=== PATIENT | female | born 1945 | race Two or more races ===

== ENCOUNTER → 2016-09-01 | Outpatient (CLI) | payer BC ==
[~2016-09-01] MED LIST: ALEVE220 M2 PO; AMLODIPINE BESY10 MG ORAL; CALCIUM600 M1 PO; CEPHALEXIN500 MG ORAL; CIPRO250 MG ORAL; CLONIDINE 0.2M0.2 MG PO; HYDROCHLOROTHIA25 MG PO; LEVEMIR100 UNITS/ SQ; MULTIVITAMINS1 EAC2 ORAL; TENORMIN50 MG PO; TRAMADOL HCL50 MG ORAL; ZESTRIL10 MG PO; ZOFRAN 4 MG4 MG/2 ML IV
--- NOTE | 2016-09-02 15:36 | Cardiology Report ---
APPROVED REPORT EKG Measurement Heart [id number] Normal sinus rhythm Possible Left atrial enlargement Borderline ECG
== END | disposition home or self-care (01) ==
LOC: RAD 09:28
DX: Z01.818 Encounter for other preprocedural examination (principal)
CPT/HCPCS: 93005

== ENCOUNTER 2017-09-24 12:06 | Emergency (ER) | payer BC ==
[~2017-09-24] VITALS: Ht 167.6 cm; Wt 77.1 kg
[2017-09-24 12:30] VITALS: BP 253/79
[2017-09-24] MEDS ORDERED: Morphine Sulfate 4mg/ml Inj IVP ONE (12:45)
[2017-09-24 13:17] LABS: BASOPHILS % (AUTO) 0.6 % (0.0-2.0); EOSINOPHILS % (AUTO) 1.7 % (0.0-3.0); HEMATOCRIT 41.6 % (37.0-47.0); HEMOGLOBIN 14.3 G/DL (12.0-16.0); LYMPHOCYTES % (AUTO) 20.2 % (20.0-45.0); MEAN CORPUSCULAR VOLUME 90 FL (80-99); MONOCYTES % (AUTO) 4.8 % (1.0-10.0); NEUTROPHILS % (AUTO) 72.7 % (45.0-75.0); PLATELET COUNT 206 K/UL (150-450); RED BLOOD COUNT 4.64 M/UL (4.20-5.40); RED CELL DISTRIBUTION WIDTH 11.6 % (11.6-14.8); WHITE BLOOD COUNT 6.7 K/UL (4.8-10.8)
--- NOTE | 2017-09-24 13:41 | Diagnostic Imaging Report ---
Indication: Headache Technique: Continuous helical CT scanning of the head was performed utilizing automated exposure control without intravenous contrast material. Axial and coronal reconstructions were obtained. Comparison: 03/24/2011 CT dose: Total DLP 1368.51 mGycm; CTDI vol 70.38 mGy Findings: There is no acute intracranial hemorrhage, mass effect or cortical edema. The ventricles, cisterns and sulci are within normal limits for age. There is mild periventricular hypoattenuation. Atherosclerotic vascular calcifications noted. Visualized mastoid air cells and paranasal sinuses are unremarkable. No focal lesions of the bony calvarium or soft tissues of the scalp are seen. IMPRESSION: No evidence of acute intracranial hemorrhage, mass effect or cortical edema. MRI may be obtained for more sensitive evaluation as clinically indicated. Nonspecific periventricular hypoattenuation suggestive of chronic ischemic microvascular changes. The CT scanner at [facility] is accredited by the [employer] and the scans are performed using protocols designed to limit radiation exposure to as low as reasonably achievable to attain images of sufficient resolution adequate for diagnostic evaluation.
[2017-09-24 13:58] LABS: ALANINE AMINOTRANSFERASE 20 U/L (12-78); ALBUMIN 3.8 G/DL (3.4-5.0); ALKALINE PHOSPHATASE 89 U/L (46-116); ANION GAP 10 mmol/L (5-15); ASPARTATE AMINO TRANSFERASE 18 U/L (15-37); BILIRUBIN,TOTAL 0.9 MG/DL (0.2-1.0); BLOOD UREA NITROGEN 23 mg/dL (7-18); CALCIUM 9.5 MG/DL (8.5-10.1); CARBON DIOXIDE 25 MMOL/L (21-32); CHLORIDE 104 MMOL/L (98-107); CKMB 0.8 NG/ML (0.0-3.6); CREATINE KINASE 43 U/L (26-308); CREATININE 0.8 MG/DL (0.55-1.30); POTASSIUM 3.7 MMOL/L (3.5-5.1); SODIUM 139 MMOL/L (136-145)
[2017-09-24] MEDS ORDERED: cloNIDine 0.2mg Tab ONE (14:24)
[2017-09-24 14:30] VITALS: BP 211/62
[2017-09-24] MEDS ORDERED: cloNIDine 0.2mg Tab ORAL ONE (14:30)
[2017-09-24] MEDS ORDERED: NORCO 5-325 TA1 EACH ORAL (15:13)
--- NOTE | 2017-09-24 15:20 | Emergency Room Report ---
History of Present Illness General Chief Complaint: Hypertension Source: Patient Present Illness HPI Patient presents emergency department today complaining of a headache. Patient states the headache is associated nausea and sensation of pressure around her head. She also had one episode of diarrhea. She denies any fever chest pain shortness of breath. Denies any abdominal pain. Symptoms noted moderate. She states that she has a history hypertension and took her medications last night. 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 No other complaints are noted.. Patient denies any prior history of CVA. Patient does occasionally get migraine headaches and hypertensive headaches.No other modifying factors. No other associated signs and symptoms. No other complaints were noted. Allergies: Coded Allergies: PENICILLINS (Verified Allergy, Severe, SWELLING, 03/24/11) CODEINE (Verified Allergy, Unknown, GI UPSET,HEADACHE, 03/24/11) Patient History Past Medical History: DM, HTN PSxH Narrative right nephrectomy Reviewed Nursing Documentation: PMH: Agreed; PSxH: Agreed Nursing Documentation-PMH Past Medical History: No History, Except For Hx Cardiac Problems: Yes Hx Hypertension: Yes Hx Diabetes: Yes Hx Cancer: Yes - Rt. Kidney Hx Gastrointestinal Problems: No Hx Neurological Problems: No Review of Systems All Other Systems: negative except mentioned in HPI Physical Exam Vital Signs Date Time Temp Pulse Resp B/P (MAP) Pulse Ox O2 Delivery O2 Flow Rate FiO2 09/24/17 12:15 98.1 70 18 208/101 96 98.1 09/24/17 12:30 Room Air Sp02 EP Interpretation: reviewed, normal General Appearance: alert, mild distress Head: atraumatic Eyes: bilateral eye normal inspection ENT: normal ENT inspection, hearing grossly normal, normal voice Neck: normal inspection, full range of motion, supple, no bony tend Respiratory: normal inspection, lungs clear, normal breath sounds, no respiratory distress, no retraction, no wheezing Cardiovascular #1: regular rate, rhythm, no edema Gastrointestinal: normal inspection, normal bowel sounds, non tender, soft, no guarding, no hernia Genitourinary: no CVA tenderness Musculoskeletal: normal inspection, back normal, normal range of motion Neurologic: normal inspection, alert, responsive, speech normal Psychiatric: normal inspection, judgement/insight normal, mood/affect normal Skin: normal inspection, normal color, no rash Medical Decision Making Diagnostic Impression: Primary Impression: Hypertension Additional Impressions: Accelerated hypertension Headache ER Course Patient presents emergency department today with generalized weakness and hypertension. Patient also complaining headache and episode of vomiting. Differential considerations include acute intracranial injury, electrolyte abnormality, migraine headache, high to intensive urgency, hypertensive emergency just to name a few.Given the severity of the patient's presentation I felt this is a highly complex patient. This patient required extensive workup. Patient's head CT was negative. Laboratory workup was also negative. Patient was given pain medications and fluids and felt much better. Patient was given nausea medication. Patient was also given clonidine with improvement blood pressure. Patient is advised to take her blood pressure pills tonight. Recommend close follow primary care physician.Patient is advised to follow up with primary doctor in 2-3 days and return the emergency room for any worsening symptoms and as needed. Labs Test 09/24/17 12:55 White Blood Count 6.7 K/UL (4.8-10.8) Red Blood Count 4.64 M/UL (4.20-5.40) Hemoglobin 14.3 G/DL (12.0-16.0) Hematocrit 41.6 % (37.0-47.0) Mean Corpuscular Volume 90 FL (80-99) Mean Corpuscular Hemoglobin 30.9 PG (27.0-31.0) Mean Corpuscular Hemoglobin Concent 34.5 G/DL (32.0-36.0) Red Cell Distribution Width 11.6 % (11.6-14.8) Platelet Count 206 K/UL (150-450) Mean Platelet Volume 7.6 FL (6.5-10.1) Neutrophils (%) (Auto) 72.7 % (45.0-75.0) Lymphocytes (%) (Auto) 20.2 % (20.0-45.0) Monocytes (%) (Auto) 4.8 % (1.0-10.0) Eosinophils (%) (Auto) 1.7 % (0.0-3.0) Basophils (%) (Auto) 0.6 % (0.0-2.0) Sodium Level 139 MMOL/L (136-145) Potassium Level 3.7 MMOL/L (3.5-5.1) Chloride Level 104 MMOL/L (98-107) Carbon Dioxide Level 25 MMOL/L (21-32) Anion Gap 10 mmol/L (5-15) Blood Urea Nitrogen 23 mg/dL (7-18) Creatinine 0.8 MG/DL (0.55-1.30) Estimat Glomerular Filtration Rate mL/min (>60) Glucose Level 167 MG/DL (74-106) Calcium Level 9.5 MG/DL (8.5-10.1) Total Bilirubin 0.9 MG/DL (0.2-1.0) Aspartate Amino Transf (AST/SGOT) 18 U/L (15-37) Alanine Aminotransferase (ALT/SGPT) 20 U/L (12-78) Alkaline Phosphatase 89 U/L (46-116) Total Creatine Kinase 43 U/L (26-308) Creatine Kinase MB 0.8 NG/ML (0.0-3.6) Creatine Kinase MB Relative Index 1.8 Troponin I 0.000 ng/mL (0.000-0.056) Total Protein 7.6 G/DL (6.4-8.2) Albumin 3.8 G/DL (3.4-5.0) Globulin 3.8 g/dL Albumin/Globulin Ratio 1.0 (1.0-2.7) Lipase 74 U/L (73-393) EKG Diagnostic Results Rate: normal Rhythm: NSR ST Segments: no acute changes Rhythm Strip Diag. Results EP Interpretation: yes Rate: 60s Rhythm: NSR, no PVC's, no ectopy Chest X-Ray Diagnostic Results Chest X-Ray Diagnostic Results : Chest X-Ray Ordered: Yes # of Views/Limited/Complete: 1 View Indication: Shortness of Breath EP Interpretation: Yes Interpretation: no consolidation, no effusion, no pneumothorax, no acute cardiopulmonary disease Impression: No acute disease Electronically Signed by: Electronically signed by Rachael Elias MD Last Vital Signs Date Time Temp Pulse Resp B/P (MAP) Pulse Ox O2 Delivery O2 Flow Rate FiO2 09/24/17 14:30 82 18 211/62 98 09/24/17 13:01 98.1 09/24/17 12:30 Room Air Status: improved Disposition: HOME, SELF-CARE Condition: Stable Scripts Hydrocodone Bit/Acetaminophen 5-325* (NORCO 5-325*) 1 Each Tablet 1 TAB ORAL Q6H PRN for For Pain, #10 TAB 0 Refills Prov: RACHAEL ELIAS M.D. 09/24/17 Referrals: EDWARDO SUAZO (PCP) Patient Instructions: Hypertension, [id number] RACHAEL ELIAS M.D. September 24, 2017 15:20
[2017-09-24 15:50] VITALS: BP 211/62
--- NOTE | 2017-09-24 17:06 | Diagnostic Imaging Report ---
Indication: Cough Technique: XRAY Chest 1v Comparison: None Findings: Heart size and mediastinal contours are stable compared to the prior exam. Atherosclerotic calcifications again noted in the aortic arch. No focal airspace consolidation, pleural effusion or pneumothorax. No acute osseous abnormality seen. Impression: No radiographic evidence of acute cardiopulmonary disease.
--- NOTE | 2017-09-26 11:57 | Cardiology Report ---
APPROVED REPORT EKG Measurement Heart [id number] Normal sinus rhythm Possible Left atrial enlargement Possible Anterior infarct, age undetermined Abnormal ECG
== END 2017-09-24 15:50 | disposition home or self-care (01) ==
LOC: EEVIPCON 12:06 → EMR 12:44
DX: I10 Essential (primary) hypertension (principal); R51 Headache; E11.9 Type 2 diabetes mellitus without complications; Z88.0 Allergy status to penicillin; Z88.5 Allergy status to narcotic agent; Z85.528 Personal history of other malignant neoplasm of kidney
CPT/HCPCS: 36415; 70450; 71045; 80053; 82550; 82553; 83690; 84484; 85025; 93005; 96374; 96375; 99283; J2270; J2405

== ENCOUNTER 2018-04-26 07:48 | Inpatient (IN) | payer BC, MEDICARE ==
[~2018-04-26] VITALS: Ht 160 cm; Wt 80.1 kg
[2018-04-26] VITALS (9 sets, daily range): BP systolic 159–235; BP diastolic 58–146
[~2018-04-26 07:48] MED LIST changes: +NORCO 5-325 TA1 EACH ORAL
[2018-04-26] MEDS ORDERED: cloNIDine 0.2mg Tab ORAL ONE (08:15)
--- NOTE | 2018-04-26 08:16 | Emergency Room Report ---
History of Present Illness General Chief Complaint: Stroke Symptoms Source: Patient Present Illness HPI Patient is a 72-year-old female who presented after increased difficulty with speech. Patient had prior history of hypertension. She reports having taken her blood pressure medications this morning. She denies any fever. She denies any extremity weakness. She reported having some increased left-sided facial the discomfort. Patient is followed by Dr. Hamlet Rajput. Allergies: Coded Allergies: PENICILLINS (Verified Allergy, Severe, SWELLING, 03/24/11) CODEINE (Verified Allergy, Unknown, GI UPSET,HEADACHE, 03/24/11) Patient History Past Medical History: see triage record Now: No Reviewed Nursing Documentation: PMH: Agreed; PSxH: Agreed Nursing Documentation-PMH Past Medical History: No History, Except For Hx Cardiac Problems: Yes Hx Hypertension: Yes Hx Diabetes: Yes Hx Cancer: Yes - Rt. Kidney Hx Gastrointestinal Problems: No Hx Neurological Problems: No Review of Systems All Other Systems: negative except mentioned in HPI Physical Exam Vital Signs Date Time Temp Pulse Resp B/P (MAP) Pulse Ox O2 Delivery O2 Flow Rate FiO2 04/26/18 07:58 98.1 144 20 237/98 97 Room Air Sp02 EP Interpretation: reviewed, normal General Appearance: normal inspection, well appearing, no apparent distress, alert, GCS 15, non-toxic Head: atraumatic ENT: normal ENT inspection, hearing grossly normal, normal voice Neck: normal inspection, full range of motion, supple, no bony tend Respiratory: normal inspection, lungs clear, normal breath sounds, no respiratory distress, no retraction, no wheezing Cardiovascular #1: regular rate, rhythm, no edema Gastrointestinal: normal inspection, normal bowel sounds, non tender, soft, no guarding, no hernia Genitourinary: no CVA tenderness Musculoskeletal: normal inspection, back normal, normal range of motion Neurologic: normal inspection, alert, oriented x3, responsive, hold worker III-XII nml as tested, speech normal Psychiatric: normal inspection, judgement/insight normal, mood/affect normal Skin: normal inspection, normal color, no rash Medical Decision Making Diagnostic Impression: Primary Impression: Transient ischemic attack ER Course Patient presented for increased dysarthria. Differential diagnosis included was not limited to CVA, transient ischemic attack, hypertensive crisis, allergic reaction and among others.Because of complexity of patient's case laboratory testing and imaging studies were ordered. The CT the head read by radiology showed no evidence of acute CVA. The patient was given medications to help control hypertension. Patient stated she felt better. The patient subsequently was noted to have increased difficulty with speaking again. The patient was given Solu-Medrol as well as Benadryl for what appears to be some tongue swelling. The patient was admitted for further evaluation of uncontrolled hypertension and the dysarthria. Dr. Dumont was contacted for inpatient management due to capitated physician. Labs Test 04/26/18 09:16 04/27/18 08:05 04/27/18 17:10 Sodium Level 140 MMOL/L (136-145) Potassium Level 3.8 MMOL/L (3.5-5.1) Chloride Level 106 MMOL/L (98-107) Carbon Dioxide Level 26 MMOL/L (21-32) Anion Gap 8 mmol/L (5-15) Blood Urea Nitrogen 23 mg/dL (7-18) Creatinine 1.0 MG/DL (0.55-1.30) Estimat Glomerular Filtration Rate mL/min (>60) Glucose Level 107 MG/DL (74-106) Calcium Level 9.0 MG/DL (8.5-10.1) Total Bilirubin 0.8 MG/DL (0.2-1.0) Aspartate Amino Transf (AST/SGOT) 16 U/L (15-37) Alanine Aminotransferase (ALT/SGPT) 72 U/L (12-78) Alkaline Phosphatase 133 U/L (46-116) Total Protein 7.4 G/DL (6.4-8.2) Albumin 3.4 G/DL (3.4-5.0) Globulin 4.0 g/dL Albumin/Globulin Ratio 0.9 (1.0-2.7) White Blood Count 9.6 K/UL (4.8-10.8) Red Blood Count 4.94 M/UL (4.20-5.40) Hemoglobin 14.5 G/DL (12.0-16.0) Hematocrit 42.9 % (37.0-47.0) Mean Corpuscular Volume 87 FL (80-99) Mean Corpuscular Hemoglobin 29.3 PG (27.0-31.0) Mean Corpuscular Hemoglobin Concent 33.7 G/DL (32.0-36.0) Red Cell Distribution Width 11.5 % (11.6-14.8) Platelet Count 257 K/UL (150-450) Mean Platelet Volume 6.7 FL (6.5-10.1) Neutrophils (%) (Auto) % (45.0-75.0) Lymphocytes (%) (Auto) % (20.0-45.0) Monocytes (%) (Auto) % (1.0-10.0) Eosinophils (%) (Auto) % (0.0-3.0) Basophils (%) (Auto) % (0.0-2.0) Differential Total Cells Counted 100 Neutrophils % (Manual) 81 % (45-75) Lymphocytes % (Manual) 18 % (20-45) Monocytes % (Manual) 1 % (1-10) Eosinophils % (Manual) 0 % (0-3) Basophils % (Manual) 0 % (0-2) Band Neutrophils 0 % (0-8) Platelet Estimate Adequate Platelet Morphology Normal Red Blood Cell Morphology Normal Prothrombin Time 10.7 SEC (9.30-11.50) Prothromb Time International Ratio 1.0 (0.9-1.1) Activated Partial Thromboplast Time 28 SEC (23-33) C-Reactive Protein, Quantitative 1.5 mg/dL (0.00-0.90) Triglycerides Level 83 MG/DL (30-150) Cholesterol Level 230 MG/DL (< 200) LDL Cholesterol 152 mg/dL (<100) HDL Cholesterol 77 MG/DL (40-60) Cholesterol/HDL Ratio 3.0 (3.3-4.4) Thyroid Stimulating Hormone (TSH) 0.325 uiU/mL (0.358-3.740) Troponin I 0.008 ng/mL (0.000-0.056) Last Vital Signs Date Time Temp Pulse Resp B/P (MAP) Pulse Ox O2 Delivery O2 Flow Rate FiO2 04/26/18 08:11 237/98 04/26/18 07:58 98.1 144 20 97 Room Air Status: improved Disposition: PLACE IN OBSERVATION Condition: Stable Scripts Hydralazine HCl (Hydralazine HCl) 50 Mg Tablet 50 MG ORAL Q8HR for 30 Days, TAB Prov: Page Dumont MD 04/28/18 Atorvastatin (Lipitor) 80 Mg Tablet 80 MG ORAL BEDTIME for 30 Days, TAB Prov: Page Dumont MD 04/28/18 Referrals: David Rajput MD (PCP) Allan Couch MD Apr 26, 2018 08:16
[2018-04-26] MEDS ORDERED: Aspirin Baby 81mg ORAL ONE (08:30)
--- NOTE | 2018-04-26 08:37 | Diagnostic Imaging Report ---
Indication: Altered mental status, increased difficulty with speech Technique: Continuous helical CT scanning of the head was performed without intravenous contrast material. Axial and coronal 5 mm sections were generated. Radiation dose was minimized using automated exposure control Dose: Total Dose Length Product - DLP 1383.[address] Dose Index - CTDIvol(s) 70.38 mGy. Comparison: none Findings: The ventricular system is normal in size and configuration. There is no shift of midline structures. No abnormal extra-axial fluid collections are noted. There is no evidence of intracerebral bleeding. Normal-sized ventricles and extra axial CSF spaces Small focus of low-attenuation in the left inferior frontal deep white matter is consistent with chronic deep white matter ischemic changes or old white matter lacunar infarct. Otherwise normal hunt-white differentiation. The calvarium is intact. Visualized orbits and sinuses are unremarkable. Impression: Negative for acute intrarenal bleed or mass effect Left frontal deep white matter chronic deep white matter small vessel ischemic change or old lacunar infarct . Stat code stroke findings discussed with Dr. Couch in the emergency room at approximately 0825 on 04/26/[address] scanner at [facility] is accredited by the [employer] and the scans are performed using protocols designed to limit radiation exposure to as low as reasonably achievable to attain images of sufficient resolution adequate for diagnostic evaluation.
[2018-04-26 09:27] LABS: BASOPHILS % (AUTO) 0.6 % (0.0-2.0); EOSINOPHILS % (AUTO) 3.3 % (0.0-3.0); HEMATOCRIT 40.5 % (37.0-47.0); HEMOGLOBIN 13.8 G/DL (12.0-16.0); LYMPHOCYTES % (AUTO) 33.9 % (20.0-45.0); MEAN CORPUSCULAR VOLUME 87 FL (80-99); NEUTROPHILS % (AUTO) 56.2 % (45.0-75.0); PLATELET COUNT 252 K/UL (150-450); RED BLOOD COUNT 4.65 M/UL (4.20-5.40); RED CELL DISTRIBUTION WIDTH 11.7 % (11.6-14.8); WHITE BLOOD COUNT 4.9 K/UL (4.8-10.8)
[2018-04-26 09:55] LABS: ANION GAP 8 mmol/L (5-15); BLOOD UREA NITROGEN 23 mg/dL (7-18); CARBON DIOXIDE 26 MMOL/L (21-32); CHLORIDE 106 MMOL/L (98-107); POTASSIUM 3.8 MMOL/L (3.5-5.1); SODIUM 140 MMOL/L (136-145)
[2018-04-26 10:00] LABS: ALANINE AMINOTRANSFERASE 72 U/L (12-78); ALBUMIN 3.4 G/DL (3.4-5.0); ALBUMIN/GLOBULIN RATIO 0.9 (1.0-2.7); ALKALINE PHOSPHATASE 133 U/L (46-116); ASPARTATE AMINO TRANSFERASE 16 U/L (15-37); BILIRUBIN,TOTAL 0.8 MG/DL (0.2-1.0); CHOLESTEROL 191 MG/DL (< 200); HDL CHOLESTEROL 61 MG/DL (40-60); TRIGLYCERIDES 88 MG/DL (30-150)
[2018-04-26] MEDS ORDERED: Solu-MEDROL 125mg Inj IVP ONE (11:00)
[2018-04-26] MEDS ORDERED: DiphenhydrAMINE 50mg/ml Inj IVP ONE (11:00)
[2018-04-26] MEDS ORDERED: dilTIAZem HCl 25mg/5ml Inj IV PRN (17:15)
[2018-04-26] MEDS ORDERED: Albuterol/Ipratropium 3ml neb HHN PRN (17:15)
[2018-04-26] MEDS ORDERED: Nitroglycerin Subl 0.4mg tab SL PRN (17:15)
[2018-04-26] MEDS ORDERED: Miralax 17gm pkt ORAL PRN (17:15)
[2018-04-26] MEDS: cloNIDine 0.2mg Tab ORAL SCH (18:34)
--- NOTE | 2018-04-26 20:26 | Cardiology Progress Note ---
Assessment/Plan Assessment/Plan [id number] increase acei echo carotid duplex statin not sure about the "toungue swelling " will follow may benefit form sleep study Objective Last 24 Hour Vital Signs Date Time Temp Pulse Resp B/P (MAP) Pulse Ox O2 Delivery O2 Flow Rate FiO2 18 18:34 162/76 18 18:34 67 162/76 18 16:25 Room Air 04/26/18 16:00 96.8 67 22 162/76 (104) 96 04/26/18 15:10 58 17 162/58 99 Room Air 04/26/18 13:00 51 16 190/60 99 Room Air 04/26/18 12:00 49 18 161/63 98 Room Air 04/26/18 10:45 97.8 54 14 163/66 98 Room Air 04/26/18 10:45 97.8 54 14 163/66 98 Room Air 04/26/18 09:00 98.6 60 18 159/146 99 Room Air 04/26/18 08:11 237/98 04/26/18 08:05 98.3 142 20 235/98 98 Room Air 04/26/18 07:58 98.1 144 20 237/98 97 Room Air Laboratory Tests Test 04/26/18 09:16 04/26/18 18:00 White Blood Count 4.9 K/UL (4.8-10.8) Red Blood Count 4.65 M/UL (4.20-5.40) Hemoglobin 13.8 G/DL (12.0-16.0) Hematocrit 40.5 % (37.0-47.0) Mean Corpuscular Volume 87 FL (80-99) Mean Corpuscular Hemoglobin 29.6 PG (27.0-31.0) Mean Corpuscular Hemoglobin Concent 34.0 G/DL (32.0-36.0) Red Cell Distribution Width 11.7 % (11.6-14.8) Platelet Count 252 K/UL (150-450) Mean Platelet Volume 6.5 FL (6.5-10.1) Neutrophils (%) (Auto) 56.2 % (45.0-75.0) Lymphocytes (%) (Auto) 33.9 % (20.0-45.0) Monocytes (%) (Auto) 6.0 % (1.0-10.0) Eosinophils (%) (Auto) 3.3 % (0.0-3.0) H Basophils (%) (Auto) 0.6 % (0.0-2.0) Prothrombin Time 10.4 SEC (9.30-11.50) Prothromb Time International Ratio 1.0 (0.9-1.1) Activated Partial Thromboplast Time 29 SEC (23-33) Sodium Level 140 MMOL/L (136-145) Potassium Level 3.8 MMOL/L (3.5-5.1) Chloride Level 106 MMOL/L (98-107) Carbon Dioxide Level 26 MMOL/L (21-32) Anion Gap 8 mmol/L (5-15) Blood Urea Nitrogen 23 mg/dL (7-18) H Creatinine 1.0 MG/DL (0.55-1.30) Estimat Glomerular Filtration Rate mL/min (>60) Glucose Level 107 MG/DL (74-106) H Calcium Level 9.0 MG/DL (8.5-10.1) Total Bilirubin 0.8 MG/DL (0.2-1.0) Aspartate Amino Transf (AST/SGOT) 16 U/L (15-37) Alanine Aminotransferase (ALT/SGPT) 72 U/L (12-78) Alkaline Phosphatase 133 U/L (46-116) H Total Protein 7.4 G/DL (6.4-8.2) Albumin 3.4 G/DL (3.4-5.0) Globulin 4.0 g/dL Albumin/Globulin Ratio 0.9 (1.0-2.7) L Triglycerides Level 88 MG/DL (30-150) Cholesterol Level 191 MG/DL (< 200) LDL Cholesterol 122 mg/dL (<100) H HDL Cholesterol 61 MG/DL (40-60) H Cholesterol/HDL Ratio 3.1 (3.3-4.4) L Troponin I 0.000 ng/mL (0.000-0.056) Stevo Funes MD Apr 26, 2018 20:26
[2018-04-26] MEDS: NovoLOG Insulin Flexpen SUBQ SCH (20:50)
[2018-04-26] MEDS: Heparin 5000 units/ml inj SUBQ SCH (20:50)
[2018-04-26] MEDS: Enalaprilat 2.5mg/2ml Inj IV PRN (20:52)
[2018-04-26] MEDS: Atorvastatin 80mg tab ORAL SCH (20:55)
[2018-04-27] VITALS (8 sets, daily range): BP systolic 158–187; BP diastolic 64–90
--- NOTE | 2018-04-27 03:15 | Consultation ---
DATE OF CONSULTATION: 04/26/2018 CARDIAC CONSULTATION CONSULTING PHYSICIAN: Stevo Funes M.D. REFERRING PHYSICIAN: Page Dumont M.D. REASON FOR REFERRAL: Transient ischemic attack with history of hypertension. HISTORY OF PRESENT ILLNESS: This is a middle-aged female, who has a history of high blood pressure and diabetes, presented to the hospital because of speech issues while she was at work today. Slurring of speech was noted. She was brought to the emergency room. Currently symptoms resolved and she was discharged from the hospital, although she did get some aspirin. When she did try to get out of the hospital, she started having some swelling of her tongue and she was admitted at that time. She is feeling much better at the present time, although has slurred speech and tongue swelling that resolved. She does not have any chest pain. No PND. No orthopnea. She uses 2 pillows for neck and GI issues, not because of orthopnea. There is no palpitation. No dizziness or lightheadedness on standing. Her blood pressure has been elevated previously. She is still taking some medication on a p.r.n. basis. Her blood pressure improved and she stopped taking the medication until recently when her blood pressure went up back again. PAST MEDICAL HISTORY: Positive for diabetes and high blood pressure. No history of heart attack. She does have a history of renal cell carcinoma that was resected. No history of stroke. No hepatitis or tuberculosis. No asthma or emphysema. No ulcers. No kidney problems, liver problems, thyroid problems, or anemia. She does have arthritis. There is no HIV, AIDS, blood clots, or gynecological issues. ALLERGIES: She is allergic to penicillin and Benadryl, which causes her to become pale and nauseated and she is also allergic to codeine. SOCIAL HISTORY: She does not smoke. Does not drink alcoholic beverages. She works as a . REVIEW OF SYSTEMS: GASTROINTESTINAL: She has had chronic constipation. No black or bloody stools. GENITOURINARY: She denies. PULMONARY: She denies. CONSTITUTIONAL: She denies. NEUROLOGIC: As mentioned in HPI. PHYSICAL EXAMINATION: GENERAL: Shows to be an elderly female, in no respiratory distress. NECK: Supple. No jugular venous distention. HEENT: Seems unremarkable. There are no carotid bruits noted. LUNGS: Clear. CARDIAC: Regular rate and rhythm. No heaves or thrills noted. ABDOMEN: Soft and nontender. Positive bowel sounds. EXTREMITIES: There is no clubbing, cyanosis, nor is there any edema. NEUROLOGICAL: She is awake, alert, responsive, and in no apparent distress. LABORATORY AND DIAGNOSTIC DATA: Laboratory values, white count of 4.9, hemoglobin 13.8, and platelet count 252. Sodium is 140, potassium 3.8, chloride 106, bicarb of 26, BUN 22, creatinine 1.0, and glucose 106. Alkaline phosphatase of 131, AST is 16, ALT of 72, and total protein 7.4. Total cholesterol is 191 with LDL of 122 and HDL of 61. Troponin 0.00. INR is 1 and PTT of 29. Her imaging today, she had a CT scan of her head that showed negative for acute intracranial bleed or mass effect. Left frontal lobe deep white matter, chronic small vessel change. Electrocardiogram performed in the emergency room shows sinus bradycardia, normal QRS axis, no ST-T abnormalities of any significant degree. ASSESSMENT AND PLAN: 1. Dysarthria, resolved. 2. Possible transient ischemic attack. 3. Tongue swelling, post administration of aspirin. 4. Diabetes. 5. Hypertension. 6. Hyperlipidemia. 7. History of renal cell carcinoma. 8. Obesity. Dr. Dumont, this patient was seen in cardiac consultation. She has no signs or symptoms of coronary syndrome. Her EKG shows sinus rhythm. Telemetry also shows sinus rhythm. Her blood pressure is elevated in the 160s over 70s and that needs to be controlled. She should have a carotid duplex, monitoring coordinator, repeat EKG, and repeat cardiac enzymes. An echocardiogram will also be ordered for evaluation of her transient ischemic attack. She may require a neurological evaluation as well. Not sure about what to make about the tongue swelling, she has had Advil without any problems. She has never taken aspirin before. Nevertheless, she is not in any kind of distress at this time. We will await further studies and she should be on some statin in light of the fact that she is a diabetic. Her list of medications include atenolol and amlodipine and clonidine and hydrochlorothiazide as well as some Zestril. Probably increase the Zestril as long as her renal function allows to obtain an adequate control of blood pressure. She should probably be considered for a sleep study at some point in the future to exclude a secondary cause of hypertension. Stevo Funes M.D. DR: LETY JOB#: [id number] CC:
[2018-04-27] MEDS: Enalaprilat 2.5mg/2ml Inj IV PRN ×2 (04:08→10:22)
[2018-04-27] MEDS: NovoLOG Insulin Flexpen SUBQ SCH ×4 (05:52→21:09)
[2018-04-27 08:24] LABS: HEMATOCRIT 42.9 % (37.0-47.0); HEMOGLOBIN 14.5 G/DL (12.0-16.0); MEAN CORPUSCULAR VOLUME 87 FL (80-99); PLATELET COUNT 257 K/UL (150-450); RED BLOOD COUNT 4.94 M/UL (4.20-5.40); RED CELL DISTRIBUTION WIDTH 11.5 % (11.6-14.8); WHITE BLOOD COUNT 9.6 K/UL (4.8-10.8)
[2018-04-27] MEDS: cloNIDine 0.2mg Tab ORAL SCH ×2 (08:53→17:40)
[2018-04-27] MEDS: Heparin 5000 units/ml inj SUBQ SCH ×2 (08:57→21:07)
[2018-04-27] MEDS ORDERED: Lisinopril 20mg tab ORAL SCH (09:00)
[2018-04-27 09:03] LABS: CHOLESTEROL 230 MG/DL (< 200); HDL CHOLESTEROL 77 MG/DL (40-60); TRIGLYCERIDES 83 MG/DL (30-150)
--- NOTE | 2018-04-27 11:52 | History and Physical ---
History of Present Illness General Date patient seen: Apr 27, 2018 Reason for Hospitalization: Stroke Symptoms Present Illness HPI 72-year-old female with hx of hypertension presented to ER after increased difficulty with speech. She reports having taken her blood pressure medications this morning. She reported having some increased left-sided facial the discomfort Allergies: Coded Allergies: PENICILLINS (Verified Allergy, Severe, SWELLING, 03/24/11) CODEINE (Verified Allergy, Unknown, GI UPSET,HEADACHE, 03/24/11) Medication History Scheduled Amlodipine Besylate* (Amlodipine Besylate*), 10 MG ORAL DAILY, (Reported) Atenolol* (Tenormin*), 50 MG PO BID, (Reported) Calcium Carbonate (Calcium), 1,200 MG PO DAILY, (Reported) Ciprofloxacin HCl (Cipro), 250 MG ORAL EVERY 12 HOURS Clonidine HCl (Clonidine HCl), 0.2 MG PO BID, (Reported) Hydrochlorothiazide* (Hydrochlorothiazide*), 25 MG PO DAILY, (Reported) Insulin Detemir (Levemir), 20 UNIT SQ BEFORE BREAKFAST, (Reported) Lisinopril* (Zestril*), 10 MG PO BID, (Reported) Multivitamins* (Multivitamins*), 1 TAB ORAL DAILY, (Reported) Scheduled PRN Hydrocodone Bit/Acetaminophen 5-325* (Rock 5-325*), 1 TAB ORAL Q6H PRN for For Pain Ondansetron* (Zofran*), 4 MG IV Q6H PRN for Nausea & Vomiting Tramadol Hcl* (Ultram*), 50 MG ORAL Q6H PRN for For Pain, (Reported) Patient History Healthcare decision maker Resuscitation status Advanced Directive on File Past Medical/Surgical History Past Medical/Surgical History: (1) Renal cell carcinoma (2) Diabetes type 2, uncontrolled Review of Systems All Other Systems: negative except mentioned in HPI Physical Exam General Appearance: WD/WN Lines, tubes and drains: peripheral HEENT: normocephalic, atraumatic Neck: non-tender, normal alignment Respiratory/Chest: chest wall non-tender, lungs clear Cardiovascular/Chest: normal peripheral pulses, normal rate Abdomen: normal bowel sounds, soft Extremities: normal range of motion Last 24 Hour Vital Signs Date Time Temp Pulse Resp B/P (MAP) Pulse Ox O2 Delivery O2 Flow Rate FiO2 04/27/18 10:22 180/65 12/5/18 10:02 184/65 (104) 04/27/18 08:54 87 184/78 04/27/18 08:54 87 184/78 04/27/18 08:53 184/78 04/27/18 08:53 184/78 04/27/18 08:30 Room Air 04/27/18 08:00 99.3 67 18 184/78 (113) 98 04/27/18 07:38 65 04/27/18 04:08 187/90 04/27/18 04:00 98.0 70 19 187/90 (122) 96 04/27/18 03:32 81 04/27/18 00:00 98.2 67 19 158/88 (111) 96 04/26/18 22:20 70 20 Room Air 21 04/26/18 21:03 69 04/26/18 21:00 162/98 (119) 04/26/18 21:00 Room Air 04/26/18 20:52 161/94 04/26/18 20:00 97.5 69 20 161/94 (116) 96 04/26/18 18:34 162/76 04/26/18 18:34 67 162/76 04/26/18 16:25 Room Air 04/26/18 16:00 96.8 67 22 162/76 (104) 96 04/26/18 15:10 58 17 162/58 99 Room Air 04/26/18 13:00 51 16 190/60 99 Room Air 04/26/18 12:00 49 18 161/63 98 Room Air Intake and Output 04/26/18 04/27/18 19:00 07:00 Intake Total 200 ml Balance 200 ml Intake Oral 200 ml # Voids 2 2 # Bowel Movements 1 Laboratory Tests Test 04/26/18 18:00 04/27/18 08:05 Troponin I 0.000 ng/mL (0.000-0.056) 0.003 ng/mL (0.000-0.056) White Blood Count 9.6 K/UL (4.8-10.8) # Red Blood Count 4.94 M/UL (4.20-5.40) Hemoglobin 14.5 G/DL (12.0-16.0) Hematocrit 42.9 % (37.0-47.0) Mean Corpuscular Volume 87 FL (80-99) Mean Corpuscular Hemoglobin 29.3 PG (27.0-31.0) Mean Corpuscular Hemoglobin Concent 33.7 G/DL (32.0-36.0) Red Cell Distribution Width 11.5 % (11.6-14.8) L Platelet Count 257 K/UL (150-450) Mean Platelet Volume 6.7 FL (6.5-10.1) Neutrophils (%) (Auto) % (45.0-75.0) Lymphocytes (%) (Auto) % (20.0-45.0) Monocytes (%) (Auto) % (1.0-10.0) Eosinophils (%) (Auto) % (0.0-3.0) Basophils (%) (Auto) % (0.0-2.0) Differential Total Cells Counted 100 Neutrophils % (Manual) 81 % (45-75) H Lymphocytes % (Manual) 18 % (20-45) L Monocytes % (Manual) 1 % (1-10) Eosinophils % (Manual) 0 % (0-3) Basophils % (Manual) 0 % (0-2) Band Neutrophils 0 % (0-8) Platelet Estimate Adequate Platelet Morphology Normal Red Blood Cell Morphology Normal Prothrombin Time 10.7 SEC (9.30-11.50) Prothromb Time International Ratio 1.0 (0.9-1.1) Activated Partial Thromboplast Time 28 SEC (23-33) C-Reactive Protein, Quantitative 1.5 mg/dL (0.00-0.90) H Triglycerides Level 83 MG/DL (30-150) Cholesterol Level 230 MG/DL (< 200) H LDL Cholesterol 152 mg/dL (<100) H HDL Cholesterol 77 MG/DL (40-60) H Cholesterol/HDL Ratio 3.0 (3.3-4.4) L Thyroid Stimulating Hormone (TSH) 0.325 uiU/mL (0.358-3.740) Height (Feet): 5 Height (Inches): 3.00 Weight (Pounds): 176 Medications Current Medications Medications (Trade) Dose Ordered Sig/Caroline Route PRN Reason Start Time Stop Time Status Last Admin Dose Admin Acetaminophen (Tylenol) 650 mg Q4H PRN ORAL FEVER 04/26/18 17:12 05/26/18 17:11 Albuterol/ Ipratropium (Albuterol/ Ipratropium) 3 ml Q4H PRN HHN Shortness of Breath 04/26/18 17:15 05/01/18 17:14 Amlodipine Besylate (Norvasc) 10 mg DAILY ORAL 04/27/18 09:00 05/27/18 08:59 04/27/18 08:54 Atenolol (Tenormin) 50 mg BID ORAL 04/26/18 18:00 05/26/18 17:59 04/27/18 08:54 Atorvastatin Calcium (Lipitor) 80 mg BEDTIME ORAL 04/26/18 21:00 05/26/18 20:59 04/26/18 20:55 Clonidine HCl (Catapres tab) 0.2 mg BID ORAL 04/26/18 18:00 05/26/18 17:59 04/27/18 08:53 Dextrose (Dextrose 50%) 25 ml Q30M PRN IV Hypoglycemia 04/26/18 19:30 05/26/18 19:29 Dextrose (Dextrose 50%) 50 ml Q30M PRN IV Hypoglycemia 04/26/18 19:30 05/26/18 19:29 Diltiazem HCl (Cardizem) 10 mg Q1H PRN IV heart rate more than 120, 04/26/18 17:15 05/26/18 17:14 Enalaprilat (Vasotec) 2.5 mg Q6H PRN IV sbp more than 160 04/26/18 17:15 05/26/18 17:14 04/27/18 10:22 Heparin Sodium (Porcine) (Heparin 5000 units/ml) 5,000 units EVERY 12 HOURS SUBQ 04/26/18 21:00 05/26/18 20:59 04/27/18 08:57 Hydrochlorothiazide (Hydrodiuril) 25 mg DAILY ORAL 04/27/18 09:00 05/27/18 08:59 04/27/18 08:53 Insulin Aspart (NovoLOG) BEFORE MEALS AND HS SUBQ 04/26/18 21:00 05/26/18 20:59 04/27/18 05:52 Lisinopril (Prinivil) 20 mg Q12HR ORAL 04/27/18 09:00 05/27/18 08:59 04/27/18 08:53 Nitroglycerin (Ntg) 0.4 mg Q5M PRN SL Prn Chest Pain 04/26/18 17:15 05/26/18 17:14 Ondansetron HCl (Zofran) 4 mg Q6H PRN IVP Nausea & Vomiting 04/26/18 17:15 05/26/18 17:14 Pantoprazole (Protonix) 40 mg DAILY ORAL 04/27/18 09:00 05/27/18 08:59 04/27/18 08:53 Polyethylene Glycol (Miralax) 17 gm DAILYPRN PRN ORAL Constipation 04/26/18 17:15 05/26/18 17:14 Temazepam (Restoril) 15 mg HSPRN PRN ORAL Insomnia 04/26/18 17:15 05/03/18 17:14 Assessment/Plan Problem List: (1) Transient ischemic attack ICD Codes: G45.9 - Transient cerebral ischemic attack, unspecified SNOMED: 210065232, 51825506 (2) Accelerated hypertension ICD Codes: I10 - Essential (primary) hypertension SNOMED: 72312320 (3) Diabetes type 2, uncontrolled ICD Codes: E11.65 - Type 2 diabetes mellitus with hyperglycemia SNOMED: 263230494 Assessment/Plan telemetry monitoring MRI of brain doppler of carotid artery monitor BP echo neuro evaluation. Page Dumont MD Apr 27, 2018 11:52
[2018-04-27] MEDS: HydrALAZINE 50mg tab ORAL SCH ×2 (15:58→21:58)
--- NOTE | 2018-04-27 16:23 | Cardiology Report ---
APPROVED REPORT EXAM: Two-dimensional and M-mode echocardiogram with Doppler and color Doppler. INDICATION Left ventricular function M-Mode DIMENSIONS IVSd1.0 (0.7-1.1cm)Left Atrium (MM)4.4 (1.6-4.0cm) LVDd5.2 (3.5-5.6cm)Aortic Root3.0 (2.0-3.7cm) PWd1.2 (0.7-1.1cm)Aortic Cusp Exc.1.9 (1.5-2.0cm) LVDs2.6 (2.5-4.0cm) PWs2.1 cm Technically difficult study due to poor acoustic windows. Study quality precludes accurate assessment of regional wall motion. Normal left ventricular chamber size, systolic function and wall motion. Left ventricular ejection fraction estimated to be 55 %. Mild left ventricular hypertrophy. Anterior Echo-free space, may be due to pericardial fat or effusion. Mild left atrial enlargement. Right cardiac chamber sizes are within normal limits. Focal aortic valve sclerosis with adequate cusp excursion. Thickened mitral valve leaflets with normal excursion. Mitral annulus and aortic root calcification. Pulmonic valve not well visualized. Normal tricuspid valve structure. IVC is normal in size with physiological collapse. A color flow and spectral Doppler study was performed and revealed: No aortic insufficiency. No mitral regurgitation. Mitral diastolic velocities suggest mild left ventricular diastolic dysfunction (Grade I). No tricuspid regurgitation. Tricuspid systolic velocities suggests peak right ventricular systolic pressure of 11 mmHg. No pulmonic regurgitation present.
--- NOTE | 2018-04-27 16:38 | Cardiology Report ---
APPROVED REPORT EKG Measurement Heart [id number] Sinus bradycardia Possible Left atrial enlargement Possible Anterior infarct, age undetermined Abnormal ECG
--- NOTE | 2018-04-27 20:30 | Cardiology Progress Note ---
Assessment/Plan Assessment/Plan 1. Dysarthria, resolved. 2. Possible transient ischemic attack. 3. Tongue swelling, post administration of aspirin. 4. Diabetes. 5. Hypertension. 6. Hyperlipidemia. 7. History of renal cell carcinoma. 8. Obesity. 9. hyperthyroid? acei dcd will d/w dr mcdonough bp is still elevated no new neuro sx tele neg echo neg await neuro await duplex needs tfts Subjective Cardiovascular: Denies: chest pain, lightheadedness Respiratory: Denies: shortness of breath Gastrointestinal/Abdominal: Denies: abdominal pain Genitourinary: Denies: burning Objective Last 24 Hour Vital Signs Date Time Temp Pulse Resp B/P (MAP) Pulse Ox O2 Delivery O2 Flow Rate FiO2 04/27/18 17:40 167/71 18 17:40 61 167/71 04/27/18 16:00 97.9 61 19 167/71 (103) 98 04/27/18 15:58 163/77 04/27/18 15:17 61 04/27/18 12:00 60 04/27/18 12:00 98.4 63 19 163/77 (105) 96 04/27/18 10:22 180/65 04/27/18 10:02 184/65 (104) 04/27/18 08:54 87 184/78 04/27/18 08:54 87 184/78 04/27/18 08:53 184/78 04/27/18 08:53 184/78 04/27/18 08:30 Room Air 04/27/18 08:00 99.3 67 18 184/78 (113) 98 04/27/18 07:38 65 04/27/18 04:08 187/90 04/27/18 04:00 98.0 70 19 187/90 (122) 96 04/27/18 03:32 81 04/27/18 00:00 98.2 67 19 158/88 (111) 96 04/26/18 22:20 70 20 Room Air 21 04/26/18 21:03 69 04/26/18 21:00 162/98 (119) 04/26/18 21:00 Room Air 04/26/18 20:52 161/94 General Appearance: no apparent distress, alert Neck: supple Cardiovascular: normal rate Respiratory/Chest: lungs clear Abdomen: normal bowel sounds, non tender, soft Extremities: non-tender Intake and Output 04/26/18 04/27/18 19:00 07:00 Intake Total 200 ml Balance 200 ml Intake Oral 200 ml # Voids 2 2 # Bowel Movements 1 Laboratory Tests Test 04/27/18 08:05 04/27/18 17:10 White Blood Count 9.6 K/UL (4.8-10.8) # Red Blood Count 4.94 M/UL (4.20-5.40) Hemoglobin 14.5 G/DL (12.0-16.0) Hematocrit 42.9 % (37.0-47.0) Mean Corpuscular Volume 87 FL (80-99) Mean Corpuscular Hemoglobin 29.3 PG (27.0-31.0) Mean Corpuscular Hemoglobin Concent 33.7 G/DL (32.0-36.0) Red Cell Distribution Width 11.5 % (11.6-14.8) L Platelet Count 257 K/UL (150-450) Mean Platelet Volume 6.7 FL (6.5-10.1) Neutrophils (%) (Auto) % (45.0-75.0) Lymphocytes (%) (Auto) % (20.0-45.0) Monocytes (%) (Auto) % (1.0-10.0) Eosinophils (%) (Auto) % (0.0-3.0) Basophils (%) (Auto) % (0.0-2.0) Differential Total Cells Counted 100 Neutrophils % (Manual) 81 % (45-75) H Lymphocytes % (Manual) 18 % (20-45) L Monocytes % (Manual) 1 % (1-10) Eosinophils % (Manual) 0 % (0-3) Basophils % (Manual) 0 % (0-2) Band Neutrophils 0 % (0-8) Platelet Estimate Adequate Platelet Morphology Normal Red Blood Cell Morphology Normal Prothrombin Time 10.7 SEC (9.30-11.50) Prothromb Time International Ratio 1.0 (0.9-1.1) Activated Partial Thromboplast Time 28 SEC (23-33) Troponin I 0.003 ng/mL (0.000-0.056) 0.008 ng/mL (0.000-0.056) C-Reactive Protein, Quantitative 1.5 mg/dL (0.00-0.90) H Triglycerides Level 83 MG/DL (30-150) Cholesterol Level 230 MG/DL (< 200) H LDL Cholesterol 152 mg/dL (<100) H HDL Cholesterol 77 MG/DL (40-60) H Cholesterol/HDL Ratio 3.0 (3.3-4.4) L Thyroid Stimulating Hormone (TSH) 0.325 uiU/mL (0.358-3.740) Stevo Funes MD Apr 27, 2018 20:30
[2018-04-27] MEDS: Atorvastatin 80mg tab ORAL SCH (21:06)
[2018-04-28] VITALS: BP 170/78
[2018-04-28 04:00] VITALS: BP 170/69
[2018-04-28] MEDS: HydrALAZINE 50mg tab ORAL SCH ×2 (05:44→13:37)
[2018-04-28] MEDS: NovoLOG Insulin Flexpen SUBQ SCH ×2 (05:48→11:39)
[2018-04-28 08:00] VITALS: BP 138/57
[2018-04-28] MEDS: cloNIDine 0.2mg Tab ORAL SCH (08:29)
[2018-04-28] MEDS: Heparin 5000 units/ml inj SUBQ SCH (08:31)
--- NOTE | 2018-04-28 11:45 | Pulmonology Progress Note ---
Assessment/Plan Problems: (1) Transient ischemic attack (2) Accelerated hypertension (3) Diabetes type 2, uncontrolled Assessment/Plan BP better cardio f/u appreciated dc with close f/u Subjective ROS Limited/Unobtainable: Yes Constitutional: Reports: no symptoms HEENT: Repors: no symptoms Respiratory: Reports: no symptoms Allergies: Coded Allergies: PENICILLINS (Verified Allergy, Severe, SWELLING, 03/24/11) CODEINE (Verified Allergy, Unknown, GI UPSET,HEADACHE, 03/24/11) Objective Last 24 Hour Vital Signs Date Time Temp Pulse Resp B/P (MAP) Pulse Ox O2 Delivery O2 Flow Rate FiO2 04/28/18 09:00 54 147/55 04/28/18 09:00 Room Air 04/28/18 08:30 54 147/55 04/28/18 08:29 147/55 04/28/18 08:00 97.3 57 19 138/57 (84) 99 04/28/18 07:44 59 04/28/18 05:44 181/79 04/28/18 04:00 97.5 54 18 170/69 (102) 97 04/28/18 03:52 50 04/28/18 00:00 97.6 54 19 170/78 (108) 98 04/28/18 00:00 54 04/27/18 21:58 178/75 04/27/18 21:02 64 176/74 04/27/18 21:00 Room Air 04/27/18 20:00 97.9 61 18 176/74 (108) 98 04/27/18 20:00 65 18 Room Air 21 04/27/18 20:00 61 04/27/18 17:40 167/71 18 17:40 61 167/71 04/27/18 16:00 97.9 61 19 167/71 (103) 98 04/27/18 15:58 163/77 04/27/18 15:17 61 04/27/18 12:00 60 04/27/18 12:00 98.4 63 19 163/77 (105) 96 Intake and Output 04/27/18 04/28/18 19:00 07:00 Intake Total 472 ml 880 ml Balance 472 ml 880 ml Intake Oral 472 ml 400 ml Other 480 ml # Voids 2 3 # Bowel Movements 1 General Appearance: WD/WN HEENT: normocephalic, atraumatic Respiratory/Chest: chest wall non-tender, lungs clear, normal breath sounds Breasts: no masses Cardiovascular: normal peripheral pulses, normal rate, regular rhythm Abdomen: normal bowel sounds, soft, non tender Genitourinary: normal external genitalia Skin: no rash Laboratory Tests 04/27/18 17:10: Troponin I 0.008 Current Medications Medications (Trade) Dose Ordered Sig/Caroline Route PRN Reason Start Time Stop Time Status Last Admin Dose Admin Acetaminophen (Tylenol) 650 mg Q4H PRN ORAL FEVER 04/26/18 17:12 05/26/18 17:11 Amlodipine Besylate (Norvasc) 10 mg DAILY ORAL 04/27/18 09:00 05/27/18 08:59 04/28/18 08:30 Atenolol (Tenormin) 50 mg BID ORAL 04/26/18 18:00 05/26/18 17:59 04/27/18 17:40 Atorvastatin Calcium (Lipitor) 80 mg BEDTIME ORAL 04/26/18 21:00 05/26/18 20:59 04/27/18 21:06 Clonidine HCl (Catapres tab) 0.2 mg BID ORAL 04/26/18 18:00 05/26/18 17:59 04/28/18 08:29 Dextrose (Dextrose 50%) 25 ml Q30M PRN IV Hypoglycemia 04/26/18 19:30 05/26/18 19:29 Dextrose (Dextrose 50%) 50 ml Q30M PRN IV Hypoglycemia 04/26/18 19:30 05/26/18 19:29 Diltiazem HCl (Cardizem) 10 mg Q1H PRN IV heart rate more than 120, 04/26/18 17:15 05/26/18 17:14 Heparin Sodium (Porcine) (Heparin 5000 units/ml) 5,000 units EVERY 12 HOURS SUBQ 04/26/18 21:00 05/26/18 20:59 04/28/18 08:31 Hydralazine HCl (Apresoline) 50 mg Q8HR ORAL 04/27/18 14:00 05/27/18 13:59 04/28/18 05:44 Hydrochlorothiazide (Hydrodiuril) 25 mg DAILY ORAL 04/27/18 09:00 05/27/18 08:59 04/28/18 08:29 Insulin Aspart (NovoLOG) BEFORE MEALS AND HS SUBQ 04/26/18 21:00 05/26/18 20:59 04/28/18 11:39 Nitroglycerin (Ntg) 0.4 mg Q5M PRN SL Prn Chest Pain 04/26/18 17:15 05/26/18 17:14 Ondansetron HCl (Zofran) 4 mg Q6H PRN IVP Nausea & Vomiting 04/26/18 17:15 05/26/18 17:14 Pantoprazole (Protonix) 40 mg DAILY ORAL 04/27/18 09:00 05/27/18 08:59 04/28/18 08:29 Polyethylene Glycol (Miralax) 17 gm DAILYPRN PRN ORAL Constipation 04/26/18 17:15 05/26/18 17:14 Temazepam (Restoril) 15 mg HSPRN PRN ORAL Insomnia 04/26/18 17:15 05/03/18 17:14 Page Dumont MD Apr 28, 2018 11:45
[2018-04-28] MEDS ORDERED: APRESOLINE50 MG ORAL (11:51)
[2018-04-28] MEDS ORDERED: LIPITOR80 MG ORAL (11:51)
[2018-04-28 11:58] VITALS: BP 146/62
[2018-04-28 13:37] VITALS: BP 123/53
--- NOTE | 2018-04-29 10:22 | Discharge Summary ---
Discharge Summary Discharge Summary _ DATE OF ADMISSION: 04/26/2018 DATE OF DISCHARGE: 04/28/2018 CONSULTANTS: Dr. Stevo Funes BRIEF HOSPITAL COURSE: Patient is a 72-year-old female, with history of diabetes and hypertension, presented to ED after increased difficulty with speech. She reported taking her blood pressure medications. She reported increased left-sided facial discomfort. On evaluation at ED, blood pressure was elevated 237/98, heart rate of 144. Blood work did not show any leukocytoses, hemoglobin and hematocrit were stable. Electrolytes were normal. Troponin was negative. Head CT was negative for acute intracranial bleed or mass effect. There was left frontal deep white matter chronic ischemic changes or old lacunar infarct. She was admitted for evaluation of possible TIA and accelerated hypertension. She was admitted to telemetry. Construction Field Engineer was consulted. EKG showed normal sinus rhythm. Telemetry was likewise in sinus rhythm. She was started on aspirin. She was given atenolol, amlodipine, clonidine and hydrochlorothiazide. MITCHELL inhibitor was discontinued. Lipid panel was checked and was continued on Lipitor 80 mg daily at bedtime. Echocardiogram done showed left ventricular ejection fraction of 55% with normal left ventricular size, function and wall motion. Serial troponin negative. Carotid duplex did not show any significant plaque. She was cleared for discharge home. FINAL DIAGNOSES: Transient ischemic attack, dysarthria, resolved Accelerated hypertension Diabetes type 2, uncontrolled Hyperlipidemia Obesity history of renal cell carcinoma Possible hyperthyroidism DISPOSITION: Patient was discharged home. DISCHARGE MEDICATIONS: Refer to Discharge Medication List. DISCHARGE INSTRUCTIONS: Follow up with PCP in a week. Need to have full thyroid test done. I have been assigned to dictate discharge summary on this account, and I was not involved in the patient's management. Barbara Gudino NP Apr 29, 2018 10:22
--- NOTE | 2018-04-29 11:59 | Diagnostic Imaging Report ---
APPROVED REPORT CPT Code: 89070 Vascular Symptoms Comments: Trauma CAROTID (BILATERAL) - Imaging reveals no significant plaque within the right and left extracranial carotid arteries. The Doppler spectral flow analysis is within normal limits throughout the extracranial carotid arteries bilaterally. VERTEBRAL- The vertebral arteries are within normal limits.
== END 2018-04-28 13:50 | disposition home or self-care (01) | DRG 69 ==
LOC: EMR 08:10 → 2E 11:54 → EDBEDREQSVC 13:03 → EDBEDREQ 13:03 → 2E 15:54 → OBSVTOIN 17:04 → 2E 04-27 10:06
DX: G45.9 Transient cerebral ischemic attack, unspecified (principal); I69.822 Dysarthria following other cerebrovascular disease; I10 Essential (primary) hypertension; E11.65 Type 2 diabetes mellitus with hyperglycemia; E66.9 Obesity, unspecified; Z85.53 Personal history of malignant neoplasm of renal pelvis; E05.90 Thyrotoxicosis, unspecified without thyrotoxic crisis or storm; Z88.6 Allergy status to analgesic agent; Z88.0 Allergy status to penicillin; Z88.8 Allergy status to other drugs, medicaments and biological substances; E78.5 Hyperlipidemia, unspecified
CPT/HCPCS: 36415; 70450; 80053; 80061; 82962; 84443; 84484; 85007; 85025; 85610; 85730; 86140; 93005; 93306; 93880; 94664; 96374; 96375; 99284; J1815

== ENCOUNTER 2018-05-04 05:39 | Inpatient (IN) | payer BC, MEDICARE ==
[~2018-05-04] VITALS: Ht 167.6 cm; Wt 77.1 kg
[~2018-05-04 05:39] MED LIST changes: +APRESOLINE50 MG ORAL; +LIPITOR80 MG ORAL
--- NOTE | 2018-05-04 06:02 | Emergency Room Report ---
History of Present Illness General Chief Complaint: General Complaint Source: Patient Present Illness HPI Patient is a 72-year-old female who presented after increased tongue swelling. Patient had recent hospitalization for similar type symptoms. Patient was noted to have a markedly elevated blood pressure. Patient stated that she had increased headache. She had been reportedly compliant with her medications which include medication for blood pressure as well as diabetes. The patient recent negative head CT after a similar episode. She denies any chest discomfort. She reports having increased difficulty talking as well as swelling prominent to the left side of her tongue. Patient was a previous advised to discontinue her MITCHELL inhibitor.The patient apparently took her MITCHELL inhibitor this morning. Allergies: Coded Allergies: PENICILLINS (Verified Allergy, Severe, SWELLING, 03/24/11) MITCHELL INHIBITORS (Verified Allergy, Unknown, 05/04/18) CODEINE (Verified Allergy, Unknown, GI UPSET,HEADACHE, 03/24/11) DIPHENHYDRAMINE (Verified Allergy, Unknown, 05/04/18) Patient History Past Medical History: see triage record Reviewed Nursing Documentation: PMH: Agreed; PSxH: Agreed Nursing Documentation-PMH Hx Cardiac Problems: Yes Hx Hypertension: Yes Hx Diabetes: Yes Hx Cancer: Yes - Rt. Kidney Hx Gastrointestinal Problems: No Hx Neurological Problems: No Review of Systems All Other Systems: negative except mentioned in HPI Physical Exam Vital Signs Date Time Temp Pulse Resp B/P (MAP) Pulse Ox O2 Delivery O2 Flow Rate FiO2 05/04/18 05:47 69 18 229/70 100 Room Air Sp02 EP Interpretation: reviewed, normal General Appearance: normal inspection, well appearing, no apparent distress, alert, GCS 15 Head: atraumatic ENT: normal ENT inspection, hearing grossly normal, normal voice, other - tongue swelling, mild Neck: normal inspection, full range of motion, supple, no bony tend Respiratory: normal inspection, lungs clear, normal breath sounds, no respiratory distress, no retraction, no wheezing Cardiovascular #1: regular rate, rhythm, no edema Gastrointestinal: normal inspection, normal bowel sounds, non tender, soft, no guarding, no hernia Genitourinary: no CVA tenderness Musculoskeletal: normal inspection, back normal, normal range of motion Neurologic: normal inspection, alert, oriented x3, responsive, field captain III-XII nml as tested, other - slight dysarthria Psychiatric: normal inspection, judgement/insight normal, mood/affect normal Skin: normal inspection, normal color, no rash Medical Decision Making Diagnostic Impression: Primary Impression: Accelerated hypertension Additional Impression: Angioedema ER Course Patient presented for tongue swelling increased headache. Differential diagnosis included wasn't limited to hypertensive crisis, angioedema, CVA, subarachnoid hemorrhage among others.Because of complexity of patient's case laboratory testing and imaging studies were ordered.Patient was noted to have the increased tongue swelling. Patient was given medications for hypertension. Patient was in Dr. endorsed to Dr. Jewell the pending authorization for probable admission for management of hypertensive crisis.CT the head showed noted acute intracranial hemorrhage or CVA or ventriculomegaly Labs Test 05/04/18 05:50 05/04/18 08:00 05/05/18 05:25 Sodium Level 138 MMOL/L (136-145) Potassium Level 4.1 MMOL/L (3.5-5.1) Chloride Level 105 MMOL/L (98-107) Carbon Dioxide Level 24 MMOL/L (21-32) Anion Gap 9 mmol/L (5-15) Blood Urea Nitrogen 33 mg/dL (7-18) Creatinine 1.1 MG/DL (0.55-1.30) Estimat Glomerular Filtration Rate mL/min (>60) Glucose Level 139 MG/DL (74-106) Calcium Level 9.3 MG/DL (8.5-10.1) Total Bilirubin 1.1 MG/DL (0.2-1.0) Direct Bilirubin 0.2 MG/DL (0.0-0.3) Aspartate Amino Transf (AST/SGOT) 24 U/L (15-37) Alanine Aminotransferase (ALT/SGPT) 70 U/L (12-78) Alkaline Phosphatase 112 U/L (46-116) Total Protein 8.1 G/DL (6.4-8.2) Albumin 3.9 G/DL (3.4-5.0) Globulin 4.2 g/dL Albumin/Globulin Ratio 0.9 (1.0-2.7) Urine Color Yellow Urine Appearance Slightly cloudy Urine pH 6.5 (4.5-8.0) Urine Specific [place] 1.010 (1.005-1.035) Urine Protein 3+ (NEGATIVE) Urine Glucose (UA) 1+ (NEGATIVE) Urine Ketones Negative (NEGATIVE) Urine Blood 1+ (NEGATIVE) Urine Nitrite Negative (NEGATIVE) Urine Bilirubin Negative (NEGATIVE) Urine Urobilinogen Normal MG/DL (0.0-1.0) Urine Leukocyte Esterase 2+ (NEGATIVE) Urine RBC 2-4 /HPF (0 - 2) Urine WBC 10-15 /HPF (0 - 2) Urine Squamous Epithelial Cells Few /LPF (NONE/OCC) Urine Renal Epithelial Cells Few /LPF (NONE) Urine Bacteria Many /HPF (NONE) White Blood Count 4.5 K/UL (4.8-10.8) Red Blood Count 4.26 M/UL (4.20-5.40) Hemoglobin 12.6 G/DL (12.0-16.0) Hematocrit 37.2 % (37.0-47.0) Mean Corpuscular Volume 87 FL (80-99) Mean Corpuscular Hemoglobin 29.5 PG (27.0-31.0) Mean Corpuscular Hemoglobin Concent 33.7 G/DL (32.0-36.0) Red Cell Distribution Width 11.7 % (11.6-14.8) Platelet Count 211 K/UL (150-450) Mean Platelet Volume 7.9 FL (6.5-10.1) Neutrophils (%) (Auto) 52.7 % (45.0-75.0) Lymphocytes (%) (Auto) 34.9 % (20.0-45.0) Monocytes (%) (Auto) 8.0 % (1.0-10.0) Eosinophils (%) (Auto) 3.8 % (0.0-3.0) Basophils (%) (Auto) 0.6 % (0.0-2.0) Prothrombin Time 10.2 SEC (9.30-11.50) Prothromb Time International Ratio 1.0 (0.9-1.1) Activated Partial Thromboplast Time 28 SEC (23-33) Troponin I 0.014 ng/mL (0.000-0.056) C-Reactive Protein, Quantitative 1.2 mg/dL (0.00-0.90) Triglycerides Level 85 MG/DL (30-150) Cholesterol Level 155 MG/DL (< 200) LDL Cholesterol 97 mg/dL (<100) HDL Cholesterol 57 MG/DL (40-60) Cholesterol/HDL Ratio 2.7 (3.3-4.4) Thyroid Stimulating Hormone (TSH) 1.089 uiU/mL (0.358-3.740) Last Vital Signs Date Time Temp Pulse Resp B/P (MAP) Pulse Ox O2 Delivery O2 Flow Rate FiO2 05/04/18 05:47 69 18 229/70 100 Room Air Status: improved Disposition: ADMITTED INPATIENT Condition: Serious Scripts Polyethylene Glycol* (MIRALAX*) 17 Gm Powd.pack 17 GM ORAL DAILYPRN PRN for 30 Days, PACK Prov: Page Dumont MD 05/05/18 Labetalol HCl (Labetalol HCl) 200 Mg Tablet 200 MG ORAL Q12HR for 30 Days, TAB Prov: Page Dumont MD 05/05/18 Allan Couch MD May 04, 2018 06:02
[2018-05-04 06:12] LABS: BASOPHILS % (AUTO) 0.7 % (0.0-2.0); EOSINOPHILS % (AUTO) 3.6 % (0.0-3.0); HEMATOCRIT 43.3 % (37.0-47.0); HEMOGLOBIN 14.6 G/DL (12.0-16.0); LYMPHOCYTES % (AUTO) 35.6 % (20.0-45.0); MEAN CORPUSCULAR VOLUME 87 FL (80-99); MONOCYTES % (AUTO) 6.4 % (1.0-10.0); NEUTROPHILS % (AUTO) 53.5 % (45.0-75.0); PLATELET COUNT 231 K/UL (150-450); RED CELL DISTRIBUTION WIDTH 11.5 % (11.6-14.8); WHITE BLOOD COUNT 6.6 K/UL (4.8-10.8)
[2018-05-04 06:15] VITALS: BP 205/117
[2018-05-04] MEDS ORDERED: CATAPRES0.1 MG ORAL (06:19)
[2018-05-04] MEDS ORDERED: FAMOTIDINE20 MG ORAL (06:19)
[2018-05-04 06:21] LABS: ANION GAP 9 mmol/L (5-15); BLOOD UREA NITROGEN 33 mg/dL (7-18); CALCIUM 9.3 MG/DL (8.5-10.1); CARBON DIOXIDE 24 MMOL/L (21-32); CHLORIDE 105 MMOL/L (98-107); CREATININE 1.1 MG/DL (0.55-1.30); INR 0.9 (0.9-1.1); POTASSIUM 4.1 MMOL/L (3.5-5.1); SODIUM 138 MMOL/L (136-145)
[2018-05-04] MEDS ORDERED: TRESIBA FL100 UNIT/1 SQ (06:34)
[2018-05-04 06:36] LABS: ALANINE AMINOTRANSFERASE 70 U/L (12-78); ALBUMIN 3.9 G/DL (3.4-5.0); ALBUMIN/GLOBULIN RATIO 0.9 (1.0-2.7); ALKALINE PHOSPHATASE 112 U/L (46-116); ASPARTATE AMINO TRANSFERASE 24 U/L (15-37); BILIRUBIN,TOTAL 1.1 MG/DL (0.2-1.0)
[2018-05-04 06:40] LABS: BILIRUBIN,DIRECT 0.2 MG/DL (0.0-0.3)
[2018-05-04 07:00] VITALS: BP 178/48
[2018-05-04 08:00] VITALS: BP 168/56
[2018-05-04 08:43] LABS: BILIRUBIN, URINE NEGATIVE (NEGATIVE); GLUCOSE, URINE (UA) 1+ (NEGATIVE); KETONES,URINE NEGATIVE (NEGATIVE); LEUKOCYTE ESTERASE ,URINE 2+ (NEGATIVE); NITRITE,URINE NEGATIVE (NEGATIVE); PH,URINE 6.5 (4.5-8.0); PROTEIN,URINE 3+ (NEGATIVE); UROBILINOGEN,URINE NORMAL MG/DL (0.0-1.0)
[2018-05-04 08:46] LABS: APPEARANCE,URINE SLIGHTLY CLOUDY; COLOR,URINE YELLOW
--- NOTE | 2018-05-04 08:50 | Diagnostic Imaging Report ---
Indications: Headache Technique: Spiral acquisitions obtained through the brain. Angled axial and coronal 5 x 5 mm slices were reconstructed. Total dose length product 1400.72 mGycm. CTDI vol(s) 70.38 mGy. Dose reduction achieved using automated exposure control Comparison: 04/26/2018 Findings: Small focus of low-attenuation is seen in the posterior right parietal deep white matter, not evident previously. No acute intercranial hemorrhage or edema. No mass effect or midline shift. Normal hunt-white differentiation normal size ventricles and extra axial CSF spaces. The mastoids are clear. The visualized orbits and sinuses are unremarkable. The calvarium is intact Impression: Negative for acute intracranial bleed or mass effect Low-attenuation focus in the right parietal deep white matter. Appearance consistent with a remote lacunar infarct. However, absence of this finding on previous exam of 8 days earlier suggests that this is late subacute in nature. This agrees with the preliminary interpretation provided overnight by [facility]erad[facility] service, with minor variation. The CT scanner at [facility] is accredited by the [employer] and the scans are performed using protocols designed to limit radiation exposure to as low as reasonably achievable to attain images of sufficient resolution adequate for diagnostic evaluation.
--- NOTE | 2018-05-04 10:20 | History and Physical ---
History of Present Illness General Date patient seen: May 04, 2018 Reason for Hospitalization: General Complaint Present Illness HPI 72-year-old female with hx of hypertension presented to ER with CC of swelling of her tongue. She was just recently hospitalized for an episode of TIA. Her SBP on presentation was 229. She is admitted to telemetry for further management. Allergies: Coded Allergies: PENICILLINS (Verified Allergy, Severe, SWELLING, 03/24/11) MITCHELL INHIBITORS (Verified Allergy, Unknown, 05/04/18) CODEINE (Verified Allergy, Unknown, GI UPSET,HEADACHE, 03/24/11) DIPHENHYDRAMINE (Verified Allergy, Unknown, 05/04/18) Medication History Scheduled Amlodipine Besylate* (Amlodipine Besylate*), 10 MG ORAL DAILY, (Reported) Atenolol* (Tenormin*), 50 MG PO BID, (Reported) Atorvastatin (Lipitor), 80 MG ORAL BEDTIME Calcium Carbonate (Calcium), 1,200 MG PO DAILY, (Reported) Ciprofloxacin HCl (Cipro), 250 MG ORAL EVERY 12 HOURS Clonidine HCl (Clonidine HCl), 0.2 MG PO BID, (Reported) Famotidine (Famotidine), 20 MG ORAL DAILY, (Reported) Hydralazine HCl (Hydralazine HCl), 50 MG ORAL Q8HR Hydrochlorothiazide* (Hydrochlorothiazide*), 25 MG PO DAILY, (Reported) Insulin Degludec (Tresiba Flextouch U-100), 20 UNIT SQ DAILY, (Reported) Insulin Detemir (Levemir), 20 UNIT SQ BEFORE BREAKFAST, (Reported) Lisinopril* (Zestril*), 10 MG PO BID, (Reported) Multivitamins* (Multivitamins*), 1 TAB ORAL DAILY, (Reported) Scheduled PRN Clonidine Hcl* (Catapres*), 0.1 MG ORAL EVERY 6 HOURS PRN for For High Blood Pressure, (Reported) Hydrocodone Bit/Acetaminophen 5-325* ([place] 5-325*), 1 TAB ORAL Q6H PRN for For Pain Ondansetron* (Zofran*), 4 MG IV Q6H PRN for Nausea & Vomiting Tramadol Hcl* (Ultram*), 50 MG ORAL Q6H PRN for For Pain, (Reported) Patient History Healthcare decision maker Resuscitation status Advanced Directive on File Past Medical/Surgical History Past Medical/Surgical History: (1) Renal cell carcinoma (2) Diabetes type 2, uncontrolled Review of Systems All Other Systems: negative except mentioned in HPI Physical Exam General Appearance: WD/WN Lines, tubes and drains: peripheral HEENT: normocephalic Neck: non-tender Respiratory/Chest: chest wall non-tender, lungs clear Cardiovascular/Chest: normal peripheral pulses Abdomen: normal bowel sounds Genitourinary/Rectal: normal genital exam Extremities: normal range of motion, non-pitting Last 24 Hour Vital Signs Date Time Temp Pulse Resp B/P (MAP) Pulse Ox O2 Delivery O2 Flow Rate FiO2 05/04/18 09:50 Room Air 05/04/18 08:57 97.4 68 16 168/56 100 Room Air 05/04/18 08:00 97.4 68 16 168/56 100 Room Air 05/04/18 07:00 97.0 60 18 178/48 100 Room Air 05/04/18 06:15 97.0 65 18 205/117 100 Room Air 05/04/18 06:05 69 18 Room Air 05/04/18 06:01 225/117 05/04/18 05:47 97.0 69 18 229/70 100 Room Air Laboratory Tests Test 05/04/18 05:50 05/04/18 08:00 White Blood Count 6.6 K/UL (4.8-10.8) Red Blood Count 5.00 M/UL (4.20-5.40) Hemoglobin 14.6 G/DL (12.0-16.0) Hematocrit 43.3 % (37.0-47.0) Mean Corpuscular Volume 87 FL (80-99) Mean Corpuscular Hemoglobin 29.1 PG (27.0-31.0) Mean Corpuscular Hemoglobin Concent 33.6 G/DL (32.0-36.0) Red Cell Distribution Width 11.5 % (11.6-14.8) L Platelet Count 231 K/UL (150-450) Mean Platelet Volume 6.5 FL (6.5-10.1) Neutrophils (%) (Auto) 53.5 % (45.0-75.0) Lymphocytes (%) (Auto) 35.6 % (20.0-45.0) Monocytes (%) (Auto) 6.4 % (1.0-10.0) Eosinophils (%) (Auto) 3.6 % (0.0-3.0) H Basophils (%) (Auto) 0.7 % (0.0-2.0) Prothrombin Time 9.6 SEC (9.30-11.50) Prothromb Time International Ratio 0.9 (0.9-1.1) Activated Partial Thromboplast Time 20 SEC (23-33) L Sodium Level 138 MMOL/L (136-145) Potassium Level 4.1 MMOL/L (3.5-5.1) Chloride Level 105 MMOL/L (98-107) Carbon Dioxide Level 24 MMOL/L (21-32) Anion Gap 9 mmol/L (5-15) Blood Urea Nitrogen 33 mg/dL (7-18) H Creatinine 1.1 MG/DL (0.55-1.30) Estimat Glomerular Filtration Rate mL/min (>60) Glucose Level 139 MG/DL (74-106) H Calcium Level 9.3 MG/DL (8.5-10.1) Total Bilirubin 1.1 MG/DL (0.2-1.0) H Direct Bilirubin 0.2 MG/DL (0.0-0.3) Aspartate Amino Transf (AST/SGOT) 24 U/L (15-37) Alanine Aminotransferase (ALT/SGPT) 70 U/L (12-78) Alkaline Phosphatase 112 U/L (46-116) Total Protein 8.1 G/DL (6.4-8.2) Albumin 3.9 G/DL (3.4-5.0) Globulin 4.2 g/dL Albumin/Globulin Ratio 0.9 (1.0-2.7) L Thyroid Stimulating Hormone (TSH) 1.085 uiU/mL (0.358-3.740) Urine Color Yellow Urine Appearance Slightly cloudy Urine pH 6.5 (4.5-8.0) Urine Specific [place] 1.010 (1.005-1.035) Urine Protein 3+ (NEGATIVE) H Urine Glucose (UA) 1+ (NEGATIVE) H Urine Ketones Negative (NEGATIVE) Urine Blood 1+ (NEGATIVE) H Urine Nitrite Negative (NEGATIVE) Urine Bilirubin Negative (NEGATIVE) Urine Urobilinogen Normal MG/DL (0.0-1.0) Urine Leukocyte Esterase 2+ (NEGATIVE) H Urine RBC 2-4 /HPF (0 - 2) H Urine WBC 10-15 /HPF (0 - 2) H Urine Squamous Epithelial Cells Few /LPF (NONE/OCC) Urine Renal Epithelial Cells Few /LPF (NONE) H Urine Bacteria Many /HPF (NONE) H Microbiology Date/Time Source Procedure Growth Status 05/04/18 08:24 Rectum Received Height (Feet): 5 Height (Inches): 6.00 Weight (Pounds): 170 Assessment/Plan Problem List: (1) Hypertensive crisis ICD Codes: I16.9 - Hypertensive crisis, unspecified SNOMED: 432819622 (2) Angioedema ICD Codes: T78.3XXA - Angioneurotic edema, initial encounter SNOMED: 01829178 (3) Diabetes type 2, uncontrolled ICD Codes: E11.65 - Type 2 diabetes mellitus with hyperglycemia SNOMED: 897338891 Assessment/Plan telemetry monitoring avoid MITCHELL inhibitors symptomatic treatment monitor BP Page Dumont MD May 04, 2018 10:20
[2018-05-04] MEDS ORDERED: dilTIAZem HCl 25mg/5ml Inj IV PRN (10:30)
[2018-05-04] MEDS ORDERED: Albuterol/Ipratropium 3ml neb HHN PRN (10:30)
[2018-05-04] MEDS ORDERED: Miralax 17gm pkt ORAL PRN (10:30)
[2018-05-04] MEDS ORDERED: Nitroglycerin Subl 0.4mg tab SL PRN (10:45)
[2018-05-04] MEDS: HydrALAZINE 50mg tab ORAL SCH ×2 (13:14→21:12)
[2018-05-04] MEDS ORDERED: cloNIDine 0.2mg Tab ORAL SCH (18:00)
[2018-05-04 20:24] VITALS: BP 132/57
[2018-05-04] MEDS ORDERED: Atorvastatin 80mg tab ORAL SCH (21:00)
--- NOTE | 2018-05-04 21:04 | Cardiology Progress Note ---
Assessment/Plan Assessment/Plan need 2nday htn excluded as out pt consider sleep study will need renal artery MRA vs duplex hormonal villarreal dc acei increase hydralazien dc atenolo l star labatolol in am may need iureitc as well will follow thank you [phone] Objective Last 24 Hour Vital Signs Date Time Temp Pulse Resp B/P (MAP) Pulse Ox O2 Delivery O2 Flow Rate FiO2 05/04/18 20:24 98.3 58 18 132/57 (82) 97 05/04/18 19:44 68 18 Room Air 21 05/04/18 17:39 166/76 05/04/18 17:39 67 166/76 05/04/18 16:00 72 05/04/18 13:14 162/56 05/04/18 12:00 71 05/04/18 11:40 97.4 05/04/18 11:27 71 18 Room Air 21 05/04/18 09:50 Room Air 05/04/18 08:57 97.4 68 16 168/56 100 Room Air 05/04/18 08:00 68 05/04/18 08:00 97.4 68 16 168/56 100 Room Air 05/04/18 07:00 97.0 60 18 178/48 100 Room Air 05/04/18 06:15 97.0 65 18 205/117 100 Room Air 05/04/18 06:05 69 18 Room Air 05/04/18 06:01 225/117 05/04/18 05:47 97.0 69 18 229/70 100 Room Air Laboratory Tests Test 05/04/18 05:50 05/04/18 08:00 05/04/18 10:21 White Blood Count 6.6 K/UL (4.8-10.8) Red Blood Count 5.00 M/UL (4.20-5.40) Hemoglobin 14.6 G/DL (12.0-16.0) Hematocrit 43.3 % (37.0-47.0) Mean Corpuscular Volume 87 FL (80-99) Mean Corpuscular Hemoglobin 29.1 PG (27.0-31.0) Mean Corpuscular Hemoglobin Concent 33.6 G/DL (32.0-36.0) Red Cell Distribution Width 11.5 % (11.6-14.8) L Platelet Count 231 K/UL (150-450) Mean Platelet Volume 6.5 FL (6.5-10.1) Neutrophils (%) (Auto) 53.5 % (45.0-75.0) Lymphocytes (%) (Auto) 35.6 % (20.0-45.0) Monocytes (%) (Auto) 6.4 % (1.0-10.0) Eosinophils (%) (Auto) 3.6 % (0.0-3.0) H Basophils (%) (Auto) 0.7 % (0.0-2.0) Prothrombin Time 9.6 SEC (9.30-11.50) Prothromb Time International Ratio 0.9 (0.9-1.1) Activated Partial Thromboplast Time 20 SEC (23-33) L Sodium Level 138 MMOL/L (136-145) Potassium Level 4.1 MMOL/L (3.5-5.1) Chloride Level 105 MMOL/L (98-107) Carbon Dioxide Level 24 MMOL/L (21-32) Anion Gap 9 mmol/L (5-15) Blood Urea Nitrogen 33 mg/dL (7-18) H Creatinine 1.1 MG/DL (0.55-1.30) Estimat Glomerular Filtration Rate mL/min (>60) Glucose Level 139 MG/DL (74-106) H Calcium Level 9.3 MG/DL (8.5-10.1) Total Bilirubin 1.1 MG/DL (0.2-1.0) H Direct Bilirubin 0.2 MG/DL (0.0-0.3) Aspartate Amino Transf (AST/SGOT) 24 U/L (15-37) Alanine Aminotransferase (ALT/SGPT) 70 U/L (12-78) Alkaline Phosphatase 112 U/L (46-116) Total Protein 8.1 G/DL (6.4-8.2) Albumin 3.9 G/DL (3.4-5.0) Globulin 4.2 g/dL Albumin/Globulin Ratio 0.9 (1.0-2.7) L Thyroid Stimulating Hormone (TSH) 1.085 uiU/mL (0.358-3.740) Urine Color Yellow Urine Appearance Slightly cloudy Urine pH 6.5 (4.5-8.0) Urine Specific [place] 1.010 (1.005-1.035) Urine Protein 3+ (NEGATIVE) H Urine Glucose (UA) 1+ (NEGATIVE) H Urine Ketones Negative (NEGATIVE) Urine Blood 1+ (NEGATIVE) H Urine Nitrite Negative (NEGATIVE) Urine Bilirubin Negative (NEGATIVE) Urine Urobilinogen Normal MG/DL (0.0-1.0) Urine Leukocyte Esterase 2+ (NEGATIVE) H Urine RBC 2-4 /HPF (0 - 2) H Urine WBC 10-15 /HPF (0 - 2) H Urine Squamous Epithelial Cells Few /LPF (NONE/OCC) Urine Renal Epithelial Cells Few /LPF (NONE) H Urine Bacteria Many /HPF (NONE) H Troponin I 0.017 ng/mL (0.000-0.056) Microbiology Date/Time Source Procedure Growth Status 05/04/18 08:24 Rectum Received Stevo Funes MD May 04, 2018 21:04
[2018-05-04] MEDS: Heparin 5000 units/ml inj SUBQ SCH (21:11)
[2018-05-04] MEDS: NovoLOG Insulin Flexpen SUBQ SCH (21:11)
[2018-05-05] VITALS: BP 140/69
--- NOTE | 2018-05-05 00:15 | Consultation ---
DATE OF CONSULTATION: 05/04/2018 CARDIAC CONSULTATION: CONSULTING PHYSICIAN: Stevo Funes M.D. REFERRING PHYSICIAN: Page Dumont M.D. REASON FOR REFERRAL: Hypertension. HISTORY OF PRESENT ILLNESS: This is a middle-aged female, who is known to me from prior evaluation and hospitalization. 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 She has she tells me developed some increase in tongue swelling as well. She has been taking her medications for blood pressure including hydralazine 25 three times a day, atenolol 50 mg twice a day, amlodipine 10 mg a day, and lisinopril 10 mg on a daily basis. She has no chest pain or shortness of breath. No PND. No orthopnea although she uses two pillows because of discomfort. No dizziness or lightheadedness on standing. PAST MEDICAL HISTORY: Positive for diabetes, high blood pressure, renal cell carcinoma that was resected, and arthritis. ALLERGIES: Penicillin, Benadryl, codeine, and MITCHELL inhibitors as well. Possibility of cough and tongue swelling. REVIEW OF SYSTEMS: GASTROINTESTINAL: Positive for bloody stools that she is waiting to see Dr. Reynaga. GENITOURINARY: She denies. PULMONARY: She denies. CONSTITUTIONAL: She denies. NEUROLOGICAL: Except for the headache, she otherwise denies. PHYSICAL EXAMINATION: GENERAL: Shows to be a middle-aged female, in no respiratory distress. HEENT: Unremarkable. NECK: Supple. No jugular venous distention. LUNGS: Clear to auscultation and percussion. CARDIAC: S1 is normal. S2 is normal. Regular rate and rhythm. No heaves, thrills, or gallops noted. ABDOMEN: Soft and nontender. Positive bowel sounds. EXTREMITIES: There is no clubbing, cyanosis, or edema. NEUROLOGIC: She is awake, alert, responsive, and in no apparent distress. LABORATORY AND DIAGNOSTIC DATA: White count of 6.6, hematocrit of 14.6, and platelet count of 231. Sodium is 138, potassium 4.1 chloride 105, bicarb 24, BUN 32, creatinine 1.1, and glucose of 139. Bilirubin is 1.1. Troponin on three occasions are negative. TSH of 1.085. Coags, INR 0.9 and PTT of 20. Urinalysis is 10 to 15 WBCs, 2 to [address] was performed in the emergency room today that showed negative for acute intracranial bleed or mass effect. She has had duplex of the carotid that was negative. Her telemetry monitoring shows sinus. Electrocardiogram shows sinus bradycardia, rate of 58, normal QRS axis. ASSESSMENT AND PLAN: Hypertension, poorly controlled. Etiology of a recent increase in the blood pressure needs to be determined. The patient should have renal artery stenosis excluded by further studying, possibly as outpatient with renal artery duplex. She should be considered for a sleep study. We will leave that to the discretion of Dr. Dumont and she may need hormonal testing for secondary causes of hypertension as well. In the meantime, we will discontinue the use of beta-blockers, atenolol and start her on some labetalol in the morning. She just likes to take clonidine because of drowsiness sensation. We will increase her hydralazine to 50 mg 3 times a day. Continue labetalol. MITCHELL inhibitor is out of the picture because of tongue swelling and possible cough that has been there and further recommendation should be as required. Thank you, Dr. Dumont, for allowing me to participate in the care of this patient. Stevo Funes M.D. DR: LETY JOB#: [id number] CC:
[2018-05-05 04:00] VITALS: BP 142/71
[2018-05-05] MEDS: HydrALAZINE 50mg tab ORAL SCH ×2 (06:11→15:30)
[2018-05-05] MEDS: NovoLOG Insulin Flexpen SUBQ SCH ×2 (06:13→12:35)
[2018-05-05 07:35] LABS: BASOPHILS % (AUTO) 0.6 % (0.0-2.0); EOSINOPHILS % (AUTO) 3.8 % (0.0-3.0); HEMATOCRIT 37.2 % (37.0-47.0); HEMOGLOBIN 12.6 G/DL (12.0-16.0); LYMPHOCYTES % (AUTO) 34.9 % (20.0-45.0); MEAN CORPUSCULAR VOLUME 87 FL (80-99); NEUTROPHILS % (AUTO) 52.7 % (45.0-75.0); PLATELET COUNT 211 K/UL (150-450); RED BLOOD COUNT 4.26 M/UL (4.20-5.40); RED CELL DISTRIBUTION WIDTH 11.7 % (11.6-14.8); WHITE BLOOD COUNT 4.5 K/UL (4.8-10.8)
[2018-05-05 07:42] LABS: CHOLESTEROL 155 MG/DL (< 200); HDL CHOLESTEROL 57 MG/DL (40-60); TRIGLYCERIDES 85 MG/DL (30-150)
[2018-05-05 08:00] VITALS: BP 152/65
[2018-05-05] MEDS: Heparin 5000 units/ml inj SUBQ SCH (08:50)
[2018-05-05] MEDS ORDERED: Labetalol 200mg tab ORAL SCH (09:00)
[2018-05-05] MEDS ORDERED: hydroCHLOROthiazide 12.5mg TAB ORAL SCH (09:00)
[2018-05-05] MEDS ORDERED: NORMODYNE200 MG ORAL (10:51)
[2018-05-05] MEDS ORDERED: MIRALAX17 GM ORAL (10:51)
--- NOTE | 2018-05-05 10:54 | Pulmonology Progress Note ---
Assessment/Plan Problems: (1) Hypertensive crisis (2) Angioedema (3) Diabetes type 2, uncontrolled Assessment/Plan BP better cardio consult appreciated she was started on Labetotol Subjective ROS Limited/Unobtainable: No Constitutional: Reports: no symptoms HEENT: Repors: no symptoms Allergies: Coded Allergies: PENICILLINS (Verified Allergy, Severe, SWELLING, 03/24/11) MITCHELL INHIBITORS (Verified Allergy, Unknown, 05/04/18) CODEINE (Verified Allergy, Unknown, GI UPSET,HEADACHE, 03/24/11) DIPHENHYDRAMINE (Verified Allergy, Unknown, 05/04/18) Objective Last 24 Hour Vital Signs Date Time Temp Pulse Resp B/P (MAP) Pulse Ox O2 Delivery O2 Flow Rate FiO2 05/05/18 08:48 60 152/65 05/05/18 08:48 60 152/65 05/05/18 08:00 60 05/05/18 08:00 98.0 60 20 152/65 (94) 98 05/05/18 06:11 142/71 05/05/18 04:00 96.9 60 18 142/71 (94) 94 05/05/18 03:43 55 05/05/18 00:00 97.9 62 18 140/69 (92) 95 05/05/18 00:00 57 05/04/18 21:12 132/57 05/04/18 21:00 Room Air 05/04/18 20:24 98.3 58 18 132/57 (82) 97 05/04/18 20:00 59 05/04/18 19:44 68 18 Room Air 21 05/04/18 17:39 166/76 05/04/18 17:39 67 166/76 05/04/18 16:00 72 05/04/18 13:14 162/56 05/04/18 12:00 71 05/04/18 11:40 97.4 05/04/18 11:27 71 18 Room Air 21 Intake and Output 05/04/18 05/05/18 19:00 07:00 Intake Total 680 ml Balance 680 ml Intake Oral 680 ml # Bowel Movements 1 3 General Appearance: WD/WN HEENT: atraumatic, anicteric Breasts: no masses Cardiovascular: normal peripheral pulses Abdomen: normal bowel sounds, soft, non tender Genitourinary: normal external genitalia Skin: no rash Neurologic/Psychiatric: transportation agent II-XII grossly normal Microbiology Date/Time Source Procedure Growth Status 05/04/18 08:24 Rectum Received Laboratory Tests 05/05/18 05:25: White Blood Count 4.5L, Red Blood Count 4.26, Hemoglobin 12.6, Hematocrit 37.2, Mean Corpuscular Volume 87, Mean Corpuscular Hemoglobin 29.5, Mean Corpuscular Hemoglobin Concent 33.7, Red Cell Distribution Width 11.7, Platelet Count 211, Mean Platelet Volume 7.9, Neutrophils (%) (Auto) 52.7, Lymphocytes (%) (Auto) 34.9, Monocytes (%) (Auto) 8.0, Eosinophils (%) (Auto) 3.8H, Basophils (%) (Auto ) 0.6, Prothrombin Time 10.2, Prothromb Time International Ratio 1.0, Activated Partial Thromboplast Time 28, Troponin I 0.014, C-Reactive Protein, Quantitative 1.2H, Triglycerides Level 85, Cholesterol Level 155, LDL Cholesterol 97, HDL Cholesterol 57, Cholesterol/HDL Ratio 2.7L, Thyroid Stimulating Hormone (TSH) 1.089 Current Medications Medications (Trade) Dose Ordered Sig/Caroline Route PRN Reason Start Time Stop Time Status Last Admin Dose Admin Acetaminophen (Tylenol) 650 mg Q4H PRN ORAL FEVER 05/04/18 10:30 06/03/18 10:29 05/04/18 11:06 Acetaminophen (Tylenol) 650 mg Q6H PRN ORAL Mild Pain (Pain Scale 1-3) 05/04/18 11:15 06/03/18 11:14 Albuterol/ Ipratropium (Albuterol/ Ipratropium) 3 ml EVERY 4 HOURS PRN HHN Shortness of Breath 05/04/18 10:30 05/09/18 10:29 Amlodipine Besylate (Norvasc) 10 mg DAILY ORAL 05/05/18 09:00 06/04/18 08:59 05/05/18 08:48 Atorvastatin Calcium (Lipitor) 80 mg BEDTIME ORAL 05/04/18 21:00 06/03/18 20:59 05/04/18 21:11 Clonidine HCl (Catapres Tab) 0.1 mg Q8H PRN ORAL sbp greater than 165 05/04/18 21:15 06/03/18 21:14 Dextrose (Dextrose 50%) 25 ml Q30M PRN IV Hypoglycemia 05/04/18 20:00 06/03/18 19:59 Dextrose (Dextrose 50%) 50 ml Q30M PRN IV Hypoglycemia 05/04/18 20:00 06/03/18 19:59 Diltiazem HCl (Cardizem) 10 mg EVERY HOUR PRN IV heart rate more than 120, 05/04/18 10:30 06/03/18 10:29 Heparin Sodium (Porcine) (Heparin 5000 units/ml) 5,000 units EVERY 12 HOURS SUBQ 05/04/18 21:00 06/03/18 20:59 05/05/18 08:50 Hydralazine HCl (Apresoline) 10 mg Q4H PRN IV sbp> 160 05/04/18 12:15 06/03/18 12:14 Hydralazine HCl (Apresoline) 50 mg Q8HR ORAL 05/04/18 14:00 06/03/18 13:59 05/05/18 06:11 Hydrochlorothiazide (Hydrodiuril) 12.5 mg DAILY ORAL 05/05/18 09:00 06/04/18 08:59 05/05/18 08:47 Insulin Aspart (NovoLOG) BEFORE MEALS AND HS SUBQ 05/04/18 21:00 06/03/18 20:59 05/05/18 06:13 Labetalol HCl (Normodyne) 200 mg Q12HR ORAL 05/05/18 09:00 06/04/18 08:59 05/05/18 08:48 Nitroglycerin (Ntg) 0.4 mg Q5MIN X 3 DOSES PRN SL Prn Chest Pain 05/04/18 10:45 06/03/18 10:44 Ondansetron HCl (Zofran) 4 mg Q6H PRN IVP Nausea & Vomiting 05/04/18 10:30 06/03/18 10:29 Pantoprazole (Protonix) 40 mg DAILY ORAL 05/05/18 09:00 06/04/18 08:59 05/05/18 08:48 Polyethylene Glycol (Miralax) 17 gm DAILYPRN PRN ORAL Constipation 05/04/18 10:30 06/03/18 10:29 Temazepam (Restoril) 15 mg HSPRN PRN ORAL Insomnia 05/04/18 10:30 05/11/18 10:29 05/04/18 21:18 Page Dumont MD May 05, 2018 10:54
[2018-05-05 12:00] VITALS: BP 133/59
[2018-05-05] MEDS ORDERED: Isovue-300 100ml vial INJ PRN (12:30)
[2018-05-05] MEDS ORDERED: Gastrograffin 30ml ORAL PRN (12:30)
--- NOTE | 2018-05-05 12:38 | GI Initial Consult Note ---
History of Present Illness General Date patient seen: May 05, 2018 Time patient seen: 12:27 Reason for Hospitalization: General Complaint Referring physician: LEV CALZADA Reason for Consultation: ABDOMINAL PAIN Present Illness HPI Patient is a 72-year-old female who presented after increased tongue swelling. Patient had recent hospitalization for similar type symptoms. Patient was noted to have a markedly elevated blood pressure. Patient stated that she had increased headache. She had been reportedly compliant with her medications which include medication for blood pressure as well as diabetes. The patient recent negative head CT after a similar episode. She denies any chest discomfort. She reports having increased difficulty talking as well as swelling prominent to the left side of her tongue. Patient was a previous advised to discontinue her MITCHELL inhibitor.The patient apparently took her MITCHELL inhibitor this morning. GI consulted for abdominal pain. Pt seen, awake A&Ox4 NAD has c/o of epigastric /lower abdominal pain. Reported she had this pain most of her life. Stated that during , abdominal surgery was recommended but refused by her grandparents. She presents today with c/o of severe constipation, having 1 BM approximately every 4 days. She feels she unable to fully excavate her bowels. The patient reported no bowel regime and is not being seen by a survey manager. Abdomen is soft, mild tenderness, with no distention. Her last colonoscopy/endoscopy was 15+ years ago. She states her colonoscopy was incomplete because they were unable to pass the scope full through her colon. Home Meds Active Scripts Polyethylene Glycol* (MIRALAX*) 17 Gm Powd.pack, 17 GM ORAL DAILYPRN PRN for 30 Days, PACK Prov:Lev Dumont MD 05/05/18 Labetalol HCl (Labetalol HCl) 200 Mg Tablet, 200 MG ORAL Q12HR for 30 Days, TAB Prov:Lev Dumont MD 05/05/18 Hydralazine HCl (Hydralazine HCl) 50 Mg Tablet, 50 MG ORAL Q8HR for 30 Days, TAB Prov:Lev Dumont MD 04/28/18 Atorvastatin (Lipitor) 80 Mg Tablet, 80 MG ORAL BEDTIME for 30 Days, TAB Prov:Lev Dumont MD 04/28/18 Hydrocodone Bit/Acetaminophen 5-325* (NORCO 5-325*) 1 Each Tablet, 1 TAB ORAL Q6H PRN for For Pain, #10 TAB 0 Refills Prov:Irwin Waller MD 09/24/17 Ondansetron* (ZOFRAN*) 4 Mg/2 Ml Vial, 4 MG IV Q6H PRN for Nausea & Vomiting, # 10 VIAL Prov:Regla Ramey NP 02/18/15 Ciprofloxacin HCl (Cipro) 250 Mg Tab, 250 MG ORAL EVERY 12 HOURS, #10 TAB Prov:Regla Ramey NP 02/18/15 Reported Medications Insulin Degludec (Tresiba Flextouch U-100) 100 Unit/1 Ml Insuln.pen, 20 UNIT SQ DAILY, EA 05/04/18 Clonidine Hcl* (CATAPRES*) 0.1 Mg Tablet, 0.1 MG ORAL EVERY 6 HOURS PRN for For High Blood Pressure, TAB 05/04/18 Famotidine (FAMOTIDINE) 20 Mg Tablet, 20 MG ORAL DAILY, #30 TAB 0 Refills 05/04/18 Tramadol Hcl* (ULTRAM*) 50 Mg Tablet, 50 MG ORAL Q6H PRN for For Pain, #30 TAB 0 Refills 02/24/15 Amlodipine Besylate* (AMLODIPINE BESYLATE*) 10 Mg Tablet, 10 MG ORAL DAILY, TAB 10/07/14 Multivitamins* (MULTIVITAMINS*) 1 Each Tablet, 1 TAB ORAL DAILY, TAB 0 Refills 05/08/14 Calcium Carbonate (CALCIUM) 600 Mg Tablet, 1200 MG PO DAILY, TAB 05/08/14 Insulin Detemir (LEVEMIR) 100 Units/Ml Pen, 20 UNIT SQ BEFORE BREAKFAST 03/07/13 Atenolol* (TENORMIN*) 50 Mg Tablet, 50 MG PO BID, TAB Take 1 tablet by mouth every day. 02/04/12 Clonidine HCl (Clonidine HCl) 0.2 Mg Tab, 0.2 MG PO BID 02/04/12 Hydrochlorothiazide* (HYDROCHLOROTHIAZIDE*) 25 Mg Tablet, 25 MG PO DAILY, TAB Take one tablet by mouth daily 02/04/12 Lisinopril* (ZESTRIL*) 10 Mg Tablet, 10 MG PO BID, TAB Take 1 tablet by mouth every day. 02/04/12 Med list reviewed/reconciled: Yes Allergies: Coded Allergies: PENICILLINS (Verified Allergy, Severe, SWELLING, 03/24/11) MITCHELL INHIBITORS (Verified Allergy, Unknown, 05/04/18) CODEINE (Verified Allergy, Unknown, GI UPSET,HEADACHE, 03/24/11) DIPHENHYDRAMINE (Verified Allergy, Unknown, 05/04/18) Patient History History Provided By: Patient, Medical Record PMH Narrative Past Medical History: see triage record Reviewed Nursing Documentation: PMH: Agreed; PSxH: Agreed Nursing Documentation-PMH Hx Cardiac Problems: Yes Hx Hypertension: Yes Hx Diabetes: Yes Hx Cancer: Yes - Rt. Kidney Hx Gastrointestinal Problems: No Hx Neurological Problems: No Past Surgical History: other - nephrectomy Social History: Denies: smoking, alcohol use, drug use, other Review of Systems All Other Systems: negative except mentioned in HPI Physical Exam Vital Signs Date Time Temp Pulse Resp B/P (MAP) Pulse Ox O2 Delivery O2 Flow Rate FiO2 05/04/18 05:47 97.0 69 18 229/70 100 Room Air 05/04/18 11:27 21 Sp02 EP Interpretation: reviewed, normal Labs Laboratory Tests Test 05/05/18 05:25 White Blood Count 4.5 K/UL (4.8-10.8) L Red Blood Count 4.26 M/UL (4.20-5.40) Hemoglobin 12.6 G/DL (12.0-16.0) Hematocrit 37.2 % (37.0-47.0) Mean Corpuscular Volume 87 FL (80-99) Mean Corpuscular Hemoglobin 29.5 PG (27.0-31.0) Mean Corpuscular Hemoglobin Concent 33.7 G/DL (32.0-36.0) Red Cell Distribution Width 11.7 % (11.6-14.8) Platelet Count 211 K/UL (150-450) Mean Platelet Volume 7.9 FL (6.5-10.1) Neutrophils (%) (Auto) 52.7 % (45.0-75.0) Lymphocytes (%) (Auto) 34.9 % (20.0-45.0) Monocytes (%) (Auto) 8.0 % (1.0-10.0) Eosinophils (%) (Auto) 3.8 % (0.0-3.0) H Basophils (%) (Auto) 0.6 % (0.0-2.0) Prothrombin Time 10.2 SEC (9.30-11.50) Prothromb Time International Ratio 1.0 (0.9-1.1) Activated Partial Thromboplast Time 28 SEC (23-33) Troponin I 0.014 ng/mL (0.000-0.056) C-Reactive Protein, Quantitative 1.2 mg/dL (0.00-0.90) H Triglycerides Level 85 MG/DL (30-150) Cholesterol Level 155 MG/DL (< 200) LDL Cholesterol 97 mg/dL (<100) HDL Cholesterol 57 MG/DL (40-60) Cholesterol/HDL Ratio 2.7 (3.3-4.4) L Thyroid Stimulating Hormone (TSH) 1.089 uiU/mL (0.358-3.740) General Appearance: well appearing, no apparent distress, alert, obese Head: normocephalic EENT: PERRL/EOMI, normal ENT inspection Neck: supple Respiratory: normal breath sounds, no respiratory distress Cardiovascular: normal rate Gastrointestinal: normal inspection, non tender, soft, normal bowel sounds, non -distended Rectal: deferred Genitourinary: no CVA tenderness Musculoskeletal: normal inspection, back normal Neurologic: normal inspection, alert, oriented x3, responsive Psychiatric: normal inspection, judgement/insight normal, memory normal Skin: normal inspection, normal color, no rash, warm/dry, palpation normal, well hydrated Lymphatic: normal inspection, no adenopathy Current Medications Current Medications Medications (Trade) Dose Ordered Sig/Caroline Route PRN Reason Start Time Stop Time Status Last Admin Dose Admin Acetaminophen (Tylenol) 650 mg Q4H PRN ORAL FEVER 05/04/18 10:30 06/03/18 10:29 05/04/18 11:06 Acetaminophen (Tylenol) 650 mg Q6H PRN ORAL Mild Pain (Pain Scale 1-3) 05/04/18 11:15 06/03/18 11:14 Albuterol/ Ipratropium (Albuterol/ Ipratropium) 3 ml EVERY 4 HOURS PRN HHN Shortness of Breath 05/04/18 10:30 05/09/18 10:29 Amlodipine Besylate (Norvasc) 10 mg DAILY ORAL 05/05/18 09:00 06/04/18 08:59 05/05/18 08:48 Atorvastatin Calcium (Lipitor) 80 mg BEDTIME ORAL 05/04/18 21:00 06/03/18 20:59 05/04/18 21:11 Clonidine HCl (Catapres Tab) 0.1 mg Q8H PRN ORAL sbp greater than 165 05/04/18 21:15 06/03/18 21:14 Dextrose (Dextrose 50%) 25 ml Q30M PRN IV Hypoglycemia 05/04/18 20:00 06/03/18 19:59 Dextrose (Dextrose 50%) 50 ml Q30M PRN IV Hypoglycemia 05/04/18 20:00 06/03/18 19:59 Diltiazem HCl (Cardizem) 10 mg EVERY HOUR PRN IV heart rate more than 120, 05/04/18 10:30 06/03/18 10:29 Heparin Sodium (Porcine) (Heparin 5000 units/ml) 5,000 units EVERY 12 HOURS SUBQ 05/04/18 21:00 06/03/18 20:59 05/05/18 08:50 Hydralazine HCl (Apresoline) 10 mg Q4H PRN IV sbp> 160 05/04/18 12:15 06/03/18 12:14 Hydralazine HCl (Apresoline) 50 mg Q8HR ORAL 05/04/18 14:00 06/03/18 13:59 05/05/18 06:11 Hydrochlorothiazide (Hydrodiuril) 12.5 mg DAILY ORAL 05/05/18 09:00 06/04/18 08:59 05/05/18 08:47 Insulin Aspart (NovoLOG) BEFORE MEALS AND HS SUBQ 05/04/18 21:00 06/03/18 20:59 05/05/18 06:13 Labetalol HCl (Normodyne) 200 mg Q12HR ORAL 05/05/18 09:00 06/04/18 08:59 05/05/18 08:48 Nitroglycerin (Ntg) 0.4 mg Q5MIN X 3 DOSES PRN SL Prn Chest Pain 05/04/18 10:45 06/03/18 10:44 Ondansetron HCl (Zofran) 4 mg Q6H PRN IVP Nausea & Vomiting 05/04/18 10:30 06/03/18 10:29 Pantoprazole (Protonix) 40 mg DAILY ORAL 05/05/18 09:00 06/04/18 08:59 05/05/18 08:48 Polyethylene Glycol (Miralax) 17 gm DAILYPRN PRN ORAL Constipation 05/04/18 10:30 06/03/18 10:29 Temazepam (Restoril) 15 mg HSPRN PRN ORAL Insomnia 05/04/18 10:30 05/11/18 10:29 05/04/18 21:18 GI: Plan Problems: (1) Constipation (2) Intractable abdominal pain Plan given unknown abdominal history and current abdominal pain, will obtain a CTAP. We have discussed the plan of care with the patient and will follow the patient as an outpatient to manage her chronic constipation, and for endoscopy / colonoscopy. Discussed OTC treatments for constipation, will give additional recs as outpatient. reported by nursing staff patient is tolerating her diet. okay for DC per GI standpoint after imaging study Discussed with Dr. Reynaga. Thank you for this patient referral, we will follow. The patient was seen and examined at bedside and all new and available data was reviewed in the patients chart. I agree with the above findings, impression and plan. (Patient seen earlier today. Signature stamp does not reflect patient encounter time.). - MD Bridget [facility] MECH[facility] May 05, 2018 12:38
--- NOTE | 2018-05-05 14:54 | Cardiology Report ---
APPROVED REPORT EKG Measurement Heart [id number] ME [id number] [id number] Sinus bradycardia Possible Left atrial enlargement Borderline ECG
[2018-05-05 15:30] VITALS: BP 133/59
--- NOTE | 2018-05-05 16:53 | Diagnostic Imaging Report ---
Clinical Indication: Abdominal pain Technique: Patient given oral contrast. IV administration nonionic contrast. Venous phase spiral acquisition obtained through the abdomen and pelvis. Multiplanar reconstructions were generated. Total dose length product 871.31 mGycm. CTDIvol(s) 16.58 mGy. Dose reduction achieved using automated exposure control Comparison: 02/16/2015 Findings: Appendix is normal. There is colonic diverticulosis. There is equivocal minimal wall thickening of the distal transverse colon and equivocal minimal infiltration of the pericolonic fat in this area. Streak artifact from bilateral hip prostheses limits assessment of the pelvis. Contrast is seen throughout the entirety of the small bowel, reaching the terminal ileum and ileocecal valve. No small bowel distention or small bowel wall thickening. No free or loculated intraperitoneal gas or fluid. Distal esophagus, stomach, duodenum are unremarkable. The gallbladder is completely collapsed, contains gallstones as previously. Mildly ectatic extrahepatic bile ducts appear similar to the previous exam. No downstream obstructive lesion demonstrated. The liver demonstrates a subcentimeter low-attenuation lesion in segment 7, too small to characterize, unchanged. Another is seen in segment 4A, likewise unchanged. The pancreas, spleen, adrenals are unremarkable. Interim right nephrectomy. Some scarring is seen in the nephrectomy bed, but no evidence of recurrent mass demonstrated. The left kidney demonstrates subcentimeter low-attenuation lesions which are too small to characterize, most likely benign simple cysts. No renal or ureteral calculi, hydronephrosis, or hydroureter. However, the streak artifact from the hip hardware precludes exclusion of distal ureteral calculi. The uterus demonstrates multiple masses, consistent with fibroids, as well as multiple calcifications consistent with old degenerated fibroids. This is unchanged from the prior study. The bones demonstrate degenerative spondylosis changes. As mentioned earlier, there are bilateral hip prostheses again demonstrated. Included lung bases demonstrate minimal linear scarring or atelectasis Impression: Colonic diverticulosis. Equivocal minimal wall thickening of the distal transverse colon and equivocal minimal pericolonic fat infiltration; doubtful significance, but could indicate very early diverticulitis changes. Correlate with clinical findings No definite acute process otherwise Cholelithiasis, also previously reported No evidence of small bowel obstruction Interim right nephrectomy. No evidence of recurrent tumor Subcentimeter low-attenuation left renal and hepatic lesions, too small to characterize, most likely benign simple cysts. No further follow-up necessary or graft multiple uterine fibroids, also previously reported Other findings as noted, including basilar pulmonary crackles scarring or atelectasis, bilateral hip prostheses, degenerative spondylosis The CT scanner at [facility] is accredited by the [employer] and the scans are performed using protocols designed to limit radiation exposure to as low as reasonably achievable to attain images of sufficient resolution adequate for diagnostic evaluation.
--- NOTE | 2018-05-06 07:49 | Discharge Summary ---
Discharge Summary Discharge Summary _ DATE OF ADMISSION: 05/04/2018 DATE OF DISCHARGE: 05/05/2018 DISCHARGED BY: Dr. Page Dumont CONSULTANTS: Dr. Nacho Funes BRIEF HOSPITAL COURSE: Patient is a 72-year-old female, with history of hypertension, presented to ED complaining of swelling of the tongue. She reported increased difficulty talking as well as swelling to the left side of the tongue. Patient was previously hospitalized and was advised to discontinue her MITCHELL inhibitor. She was just recently hospitalized for an episode of TIA. The patient apparently took her MITCHELL inhibitor in the morning. On evaluation at the ED, blood pressure was elevated to 229/70. She had a head CT that was negative for acute intracranial bleed or mass-effect. There was low attenuation focus in the right parietal deep white matter. Appearance consistent with remote lacunar infarct. Blood work was unremarkable. Because of elevated blood pressure, patient was admitted to telemetry for further monitoring. She underwent cardiac evaluation. Patient has poorly controlled hypertension. Prior to hospitalization, patient was taking hydralazine, atenolol, amlodipine and lisinopril. Blood pressure was monitored. Antihypertensives were adjusted. Hydralazine was increased to 50 mg 3 times daily. Atenolol was discontinued and patient was given labetalol. MITCHELL inhibitor was discontinued. She was recommended further workup to determine the cause of increased blood pressure. Recommended renal artery duplex to rule out renal artery stenoses; may also need hormonal testing for secondary causes of hypertension and should be considered for a sleep study. She complained of abdominal pain. She complained of severe constipation. She stated her colonoscopy was incomplete because they were unable to pass the scope fully through the colon. GI was consulted. She was given bowel regimen. CT of the abdomen and pelvis showed colonic diverticulosis; no definite acute process; no evidence of small bowel obstruction; right nephrectomy with no evidence of recurrent tumor and presence of cholelithiasis. Blood pressure improved. She was tolerating diet. She was eventually cleared for discharge home. FINAL DIAGNOSES: Hypertensive crisis Angioedema Type 2 diabetes uncontrolled Constipation DISPOSITION: Patient was discharged home. DISCHARGE MEDICATIONS: Refer to Discharge Medication List. DISCHARGE INSTRUCTIONS: Follow-up in a week. Follow-up with elementary art teacher for workup to evaluate etiology of uncontrolled hypertension. I have been assigned to dictate discharge summary on this account, and I was not involved in the patient's management. Barbara Gudino NP May 06, 2018 07:49
== END 2018-05-05 18:40 | disposition home or self-care (01) | DRG 305 ==
LOC: EMR 05:55 → 2E 07:08 → EDBEDREQ 08:09 → OBSVTOIN 08:33
DX: I16.9 Hypertensive crisis, unspecified (principal); T78.3XXA Angioneurotic edema, initial encounter; E11.65 Type 2 diabetes mellitus with hyperglycemia; K59.00 Constipation, unspecified; Z88.6 Allergy status to analgesic agent; Z88.0 Allergy status to penicillin; Z88.8 Allergy status to other drugs, medicaments and biological substances; Z86.73 Personal history of transient ischemic attack (TIA), and cerebral infarction without residual deficits; Z79.4 Long term (current) use of insulin; Z85.53 Personal history of malignant neoplasm of renal pelvis; Z90.5 Acquired absence of kidney
CPT/HCPCS: 36415; 70450; 74177; 80053; 80061; 81001; 82248; 82962; 84443; 84484; 85025; 85610; 85730; 86140; 87081; 87086; 93005; 94664; 96374; 99284; J1815

== ENCOUNTER 2018-05-12 10:02 | Inpatient (IN) | payer BC, MEDICARE ==
[2018-05-12] VITALS (8 sets, daily range): BP systolic 152–202; BP diastolic 40–72
[~2018-05-12] VITALS: Ht 167.6 cm; Wt 79.8 kg
[~2018-05-12 10:02] MED LIST changes: +CATAPRES0.1 MG ORAL; +FAMOTIDINE20 MG ORAL; +MIRALAX17 GM ORAL; +NORMODYNE200 MG ORAL; +TRESIBA FL100 UNIT/1 SQ
--- NOTE | 2018-05-12 11:05 | Diagnostic Imaging Report ---
Indication: Headache Technique: Continuous helical CT scanning of the head was performed utilizing automated exposure control without intravenous contrast material. Axial and coronal reconstructions were obtained. Comparison: 05/04/2018 CT dose: Total DLP 1404.24 mGycm; CTDI vol 70.38 mGy Findings: There is no acute intracranial hemorrhage. There is no shift of the midline structures. There is a focus of low-attenuation in the periventricular white matter of the right parietal lobe (series 3 image #16) which is more pronounced than on the prior exam. The ventricles, cisterns and sulci are within normal limits for age. There is mild periventricular hypoattenuation are nonspecific finding most commonly related to sequela of chronic microvascular ischemia. Atherosclerotic vascular calcifications noted. Visualized mastoid air cells and paranasal sinuses are unremarkable. No focal lesions of the bony calvarium or soft tissues of the scalp are seen. IMPRESSION: No evidence of acute intracranial hemorrhage, mass effect or midline shift. Focus of low-attenuation in the periventricular white matter of the right parietal lobe, more pronounced compared to the prior exam. This may small lacunar white matter infarct. MRI may be obtained for more sensitive evaluation as clinically indicated. The CT scanner at [facility] is accredited by the [employer] and the scans are performed using protocols designed to limit radiation exposure to as low as reasonably achievable to attain images of sufficient resolution adequate for diagnostic evaluation.
[2018-05-12 11:11] LABS: BASOPHILS % (AUTO) 0.6 % (0.0-2.0); EOSINOPHILS % (AUTO) 2.7 % (0.0-3.0); HEMATOCRIT 38.5 % (37.0-47.0); HEMOGLOBIN 12.7 G/DL (12.0-16.0); MEAN CORPUSCULAR VOLUME 90 FL (80-99); MONOCYTES % (AUTO) 6.5 % (1.0-10.0); NEUTROPHILS % (AUTO) 63.2 % (45.0-75.0); PLATELET COUNT 225 K/UL (150-450); RED BLOOD COUNT 4.29 M/UL (4.20-5.40); RED CELL DISTRIBUTION WIDTH 11.2 % (11.6-14.8); WHITE BLOOD COUNT 5.3 K/UL (4.8-10.8)
[2018-05-12 11:15] LABS: ANION GAP 9 mmol/L (5-15); BLOOD UREA NITROGEN 30 mg/dL (7-18); CALCIUM 8.9 MG/DL (8.5-10.1); CARBON DIOXIDE 25 MMOL/L (21-32); CHLORIDE 104 MMOL/L (98-107); CREATININE 1.1 MG/DL (0.55-1.30); POTASSIUM 3.9 MMOL/L (3.5-5.1); SODIUM 138 MMOL/L (136-145)
[2018-05-12 11:21] LABS: APPEARANCE,URINE CLEAR; BILIRUBIN, URINE NEGATIVE (NEGATIVE); COLOR,URINE PALE YELLOW; GLUCOSE, URINE (UA) 2+ (NEGATIVE); KETONES,URINE NEGATIVE (NEGATIVE); LEUKOCYTE ESTERASE ,URINE 3+ (NEGATIVE); NITRITE,URINE NEGATIVE (NEGATIVE); PH,URINE 6 (4.5-8.0); PROTEIN,URINE 2+ (NEGATIVE); UROBILINOGEN,URINE NORMAL MG/DL (0.0-1.0)
[2018-05-12 11:28] LABS: ALANINE AMINOTRANSFERASE 37 U/L (12-78); ALBUMIN 3.6 G/DL (3.4-5.0); ALKALINE PHOSPHATASE 100 U/L (46-116); ASPARTATE AMINO TRANSFERASE 16 U/L (15-37); BILIRUBIN,TOTAL 1.1 MG/DL (0.2-1.0); CKMB 0.7 NG/ML (0.0-3.6); CREATINE KINASE 42 U/L (26-308)
[2018-05-12 11:29] LABS: BILIRUBIN,DIRECT 0.3 MG/DL (0.0-0.3)
--- NOTE | 2018-05-12 12:17 | Emergency Room Report ---
History of Present Illness General Chief Complaint: Hypertension Source: Patient Present Illness HPI This patient has had very difficult to control blood pressure. She has been titrated up on her blood pressure medications over the past month. She continues to have intermittently poorly controlled blood pressure. She did recently go up on hydralazine and is also on clonidine has needed. She states that she takes the clonidine at night before bed but cannot take the morning dose because of the way it makes her feel. She cannot tolerate the side effects and needs to be alert at work. She works here at [facility] [employer]. She also complains of headache blurry vision. She states this has been ongoing for the past day. She is working closely with Dr. Rajput to control her blood pressure. She has been admitted here to [facility] for blood pressure control in the past. She denies chest pain or shortness of breath. She denies abdominal pain. She has no other complaints. Allergies: Coded Allergies: PENICILLINS (Verified Allergy, Severe, SWELLING, 03/24/11) MITCHELL INHIBITORS (Verified Allergy, Unknown, 05/04/18) CODEINE (Verified Allergy, Unknown, GI UPSET,HEADACHE, 03/24/11) DIPHENHYDRAMINE (Verified Allergy, Unknown, 05/04/18) Patient History Past Medical History: see triage record, DM, HTN Past Surgical History: other - Nephrectomy Social History: Reports: alcohol use; Denies: smoking, drug use Reviewed Nursing Documentation: PMH: Agreed; PSxH: Agreed Nursing Documentation-PMH Past Medical History: No History, Except For Hx Cardiac Problems: Yes Hx Hypertension: Yes Hx Diabetes: Yes Hx Cancer: Yes - Rt. Kidney Hx Gastrointestinal Problems: No Hx Neurological Problems: No Review of Systems All Other Systems: negative except mentioned in HPI Physical Exam Vital Signs Date Time Temp Pulse Resp B/P (MAP) Pulse Ox O2 Delivery O2 Flow Rate FiO2 05/12/18 10:05 98.2 66 17 188/67 96 Room Air Sp02 EP Interpretation: reviewed, normal General Appearance: no apparent distress, alert, GCS 15, non-toxic Head: normocephalic, atraumatic Eyes: bilateral eye normal inspection, bilateral eye PERRL ENT: hearing grossly normal, normal pharynx, no angioedema, normal voice Neck: full range of motion, supple/symm/no masses Respiratory: chest non-tender, lungs clear, normal breath sounds, no respiratory distress, no retraction, no accessory muscle use, speaking full sentences Cardiovascular #1: regular rate, rhythm, no edema Gastrointestinal: normal bowel sounds, non tender, soft, non-distended, no guarding, no rebound Rectal: deferred Musculoskeletal: back normal, gait/station normal, normal range of motion, non- tender Neurologic: alert, oriented x3, responsive, motor strength/tone normal, sensory intact, speech normal Psychiatric: judgement/insight normal, memory normal, mood/affect normal, no suicidal/homicidal ideation Skin: normal color, no rash, warm/dry, well hydrated Medical Decision Making Diagnostic Impression: Primary Impression: Accelerated hypertension Additional Impression: UTI (urinary tract infection) ER Course The patient has hypertension. I feel that she is not fully controlled on her current regimen. Possibly she is also having rebound hypertension from clonidine that she takes at nighttime. She is unable to tolerate clonidine during the daytime. It may be of benefit for this patient to stop clonidine and felt this with another blood pressure medication. Another consideration is that this patient has one kidney. She may have a renal artery stenosis or a renal etiology for her poorly and difficult to control blood pressure. The patient has very high systolic blood pressures and low diastolic blood pressure which makes me think this may be related to the vessel compliance. I attempted to control the patient's blood pressure in the emergency department, however, although I did temporarily control her blood pressure each time it would increase to the 190s systolic. I felt that this patient will be unable to control her blood pressure at home and that she should be admitted for further evaluation by cardiology and nephrology. Laboratory Tests Test 05/12/18 10:35 White Blood Count 5.3 K/UL (4.8-10.8) Red Blood Count 4.29 M/UL (4.20-5.40) Hemoglobin 12.7 G/DL (12.0-16.0) Hematocrit 38.5 % (37.0-47.0) Mean Corpuscular Volume 90 FL (80-99) Mean Corpuscular Hemoglobin 29.7 PG (27.0-31.0) Mean Corpuscular Hemoglobin Concent 33.1 G/DL (32.0-36.0) Red Cell Distribution Width 11.2 % (11.6-14.8) L Platelet Count 225 K/UL (150-450) Mean Platelet Volume 6.4 FL (6.5-10.1) L Neutrophils (%) (Auto) 63.2 % (45.0-75.0) Lymphocytes (%) (Auto) 27.0 % (20.0-45.0) Monocytes (%) (Auto) 6.5 % (1.0-10.0) Eosinophils (%) (Auto) 2.7 % (0.0-3.0) Basophils (%) (Auto) 0.6 % (0.0-2.0) Urine Color Pale yellow Urine Appearance Clear Urine pH 6 (4.5-8.0) Urine Specific [place] 1.015 (1.005-1.035) Urine Protein 2+ (NEGATIVE) H Urine Glucose (UA) 2+ (NEGATIVE) H Urine Ketones Negative (NEGATIVE) Urine Blood 2+ (NEGATIVE) H Urine Nitrite Negative (NEGATIVE) Urine Bilirubin Negative (NEGATIVE) Urine Urobilinogen Normal MG/DL (0.0-1.0) Urine Leukocyte Esterase 3+ (NEGATIVE) H Urine RBC 2-4 /HPF (0 - 2) H Urine WBC 10-15 /HPF (0 - 2) H Urine Squamous Epithelial Cells Few /LPF (NONE/OCC) Urine Bacteria Few /HPF (NONE) Sodium Level 138 MMOL/L (136-145) Potassium Level 3.9 MMOL/L (3.5-5.1) Chloride Level 104 MMOL/L (98-107) Carbon Dioxide Level 25 MMOL/L (21-32) Anion Gap 9 mmol/L (5-15) Blood Urea Nitrogen 30 mg/dL (7-18) H Creatinine 1.1 MG/DL (0.55-1.30) Estimate Glomerular Filtration Rate mL/min (>60) Glucose Level 259 MG/DL (74-106) H Calcium Level 8.9 MG/DL (8.5-10.1) Total Bilirubin 1.1 MG/DL (0.2-1.0) H Direct Bilirubin 0.3 MG/DL (0.0-0.3) Aspartate Amino Transferase (AST) 16 U/L (15-37) Alanine Aminotransferase (ALT) 37 U/L (12-78) Alkaline Phosphatase 100 U/L (46-116) Total Creatine Kinase 42 U/L (26-308) Creatine Kinase MB 0.7 NG/ML (0.0-3.6) Creatine Kinase MB Relative Index 1.6 Troponin I 0.000 ng/mL (0.000-0.056) Total Protein 7.3 G/DL (6.4-8.2) Albumin 3.6 G/DL (3.4-5.0) Globulin 3.7 g/dL Albumin/Globulin Ratio 1.0 (1.0-2.7) EKG Diagnostic Results Rate: bradycardiac Rhythm: other - S.muriel ST Segments: no acute changes Rhythm Strip Diag. Results EP Interpretation: yes Rate: 50's Rhythm: no PVC's, no ectopy, other - S.muriel CT/MRI/US Diagnostic Results CT/MRI/US Diagnostic Results : Imaging Test Ordered: CT head Impression No acute findings. Specifically no intracranial bleed, mass effect or edema. See official report. Last Vital Signs Date Time Temp Pulse Resp B/P (MAP) Pulse Ox O2 Delivery O2 Flow Rate FiO2 05/12/18 11:14 177/61 05/12/18 10:40 66 16 Room Air 05/12/18 10:16 97.0 98 Disposition: ADMITTED INPATIENT Condition: Serious Referrals: David Rajput MD (PCP) Marianna Crow DO May 12, 2018 12:17
[2018-05-12] MEDS ORDERED: HydrALAZINE 50mg tab ORAL ONE (12:45)
[2018-05-12] MEDS ORDERED: cefTRIAXone 1 GM in NS 55 ML IVPB ONE (14:30)
[2018-05-12] MEDS ORDERED: HYDRALAZINE HCL50 MG ORAL (18:43)
[2018-05-12] MEDS: Metoprolol Tartrate 50mg tab ORAL SCH (21:41)
--- NOTE | 2018-05-12 21:45 | History and Physical Report ---
DATE OF ADMISSION: 05/12/2018 HISTORY OF PRESENT ILLNESS: This is a 72-year-old female who came to the emergency room for having facial drooping and blood pressure was very high in the emergency room and also had facial drooping yesterday. The patient was adjusted blood pressure medication as outpatient, but is still not feeling well. She came to the emergency room. Her current blood pressure is 190/100 to 170/90, pulse 70s, and respirations 18. PAST MEDICAL HISTORY: Renal cell CA, hypertension, diabetes and status post nephrectomy. MEDICATION: See the list. ALLERGIES: NKA. FAMILY HISTORY: Noncontributory. SOCIAL HISTORY: The patient lives at home by herself. Denies any smoking and drinking. REVIEW OF SYSTEMS: Generalized weakness occasionally, and numbness and tingling on the hand. PHYSICAL EXAMINATION: VITAL SIGNS: Blood pressure is 190/100, pulse 70, respiratory rate 18, temperature no fever. SKIN: Good skin turgor. HEENT: AT/NC. EOMI. PERRLA NECK: Supple. CHEST: Bilaterally clear. CARDIOVASCULAR: Regular rhythm. No gallop. No murmur. ABDOMEN: Soft. Positive bowel sounds. EXTREMITIES: CCE. NEUROLOGIC: Generalized weakness. GENITOURINARY: Deferred. LABORATORY DATA: BUN and creatinine normal. Sugar is slightly high. ASSESSMENT: 1. Malignant hypertension. 2. TIA. 3. Diabetes. 4. Generalized weakness. 5. Status post nephrectomy. PLAN: 1. We will admit on a telemetry bed. 2. Monitor blood pressure. 3. Restart metoprolol 50 b.i.d. 4. Continue aspirin. 5. Continue Norvasc. 6. Consider Nephrology and Cardiology consult to rule out renal artery stenosis. Hamlet Rajput M.D. DR: Angela JOB#: [id number] CC:
[2018-05-13] VITALS: BP 141/57
[2018-05-13 04:00] VITALS: BP 136/62
[2018-05-13] MEDS: NovoLOG Insulin Flexpen SUBQ SCH ×4 (06:35→20:43)
[2018-05-13 08:00] VITALS: BP 182/70
[2018-05-13] MEDS: Metoprolol Tartrate 50mg tab ORAL SCH ×2 (08:39→20:44)
--- NOTE | 2018-05-13 09:18 | Consultation ---
Consult Note Consult Note asked to palomo for bp management This patient has had very difficult to control blood pressure. She has been titrated up on her blood pressure medications over the past month. She continues to have intermittently poorly controlled blood pressure. She did recently go up on hydralazine and is also on clonidine has needed. She states that she takes the clonidine at night before bed but cannot take the morning dose because of the way it makes her feel. She cannot tolerate the side effects and needs to be alert at work. She works here at [employer]. She also complains of headache blurry vision. She states this has been ongoing for the past day. She is working closely with Dr. Rajput to control her blood pressure. She has been admitted here to [facility] for blood pressure control in the past. She denies chest pain or shortness of breath. She denies abdominal pain. She has no other complaints. Allergies: PENICILLINS (Verified Allergy, Severe, SWELLING, 03/24/11) MITCHELL INHIBITORS (Verified Allergy, Unknown, 05/04/18) CODEINE (Verified Allergy, Unknown, GI UPSET,HEADACHE, 03/24/11) DIPHENHYDRAMINE (Verified Allergy, Unknown, 05/04/18) Past Medical History: see triage record, DM, HTN Past Surgical History: other - Nephrectomy Social History: Reports: alcohol use; Denies: smoking, drug use Reviewed Nursing Documentation: PMH: Agreed; PSxH: Agreed Past Medical History: No History, Except For Hx Cardiac Problems: Yes Hx Hypertension: Yes Hx Diabetes: Yes Hx Cancer: Yes - Rt. Kidney examined data reviewed Assessment/Plan s/p Nephrectomy Right - 3 years ago HTN DM- proteinuria ? Nephropathy UTI Adjust BP meds- BS control- starlix Avoid nephrotoxics urine cultures Raymond Herrera MD May 13, 2018 09:18
[2018-05-13 12:00] VITALS: BP 153/80
[2018-05-13] MEDS: Nateglinide 60mg tab ORAL SCH ×2 (12:38→17:18)
[2018-05-13 16:00] VITALS: BP 162/72
[2018-05-13] MEDS: HydrALAZINE 25mg tab ORAL PRN (16:08)
[2018-05-13 20:00] VITALS: BP 169/66
[2018-05-14] VITALS: BP 162/68
--- NOTE | 2018-05-14 03:15 | Progress Note ---
DATE: 05/13/2018 NOTE: POOR AUDIO SUBJECTIVE: hypertension and . The patient is a . OBJECTIVE: VITAL SIGNS: Blood pressure 160/90, pulse 70s, respirations 18, no fever. CHEST: Bilaterally clear. CARDIOVASCULAR: Regular rhythm. No gallop. No murmur. ABDOMEN: Soft. EXTREMITIES: CCE. ASSESSMENT: 1. 2. Malignant hypertension. 3. TIA. 4. History of nephrectomy. PLAN: we will continue current treatment. Consider Nephrology on case. Workup is in progress. Cardiology is . Hamlet Rajput M.D. DR: Angela JOB#: [id number] CC:
[2018-05-14 04:00] VITALS: BP 168/74
[2018-05-14] MEDS: HydrALAZINE 25mg tab ORAL PRN (05:23)
[2018-05-14] MEDS: Nateglinide 60mg tab ORAL SCH (05:52)
[2018-05-14] MEDS: NovoLOG Insulin Flexpen SUBQ SCH ×4 (05:55→20:21)
[2018-05-14 07:30] LABS: BASOPHILS % (AUTO) 0.5 % (0.0-2.0); EOSINOPHILS % (AUTO) 3.6 % (0.0-3.0); HEMATOCRIT 38.6 % (37.0-47.0); LYMPHOCYTES % (AUTO) 29.1 % (20.0-45.0); MEAN CORPUSCULAR VOLUME 90 FL (80-99); NEUTROPHILS % (AUTO) 59.8 % (45.0-75.0); PLATELET COUNT 230 K/UL (150-450); RED BLOOD COUNT 4.28 M/UL (4.20-5.40); RED CELL DISTRIBUTION WIDTH 11.8 % (11.6-14.8); WHITE BLOOD COUNT 5.4 K/UL (4.8-10.8)
[2018-05-14 07:32] LABS: ALANINE AMINOTRANSFERASE 33 U/L (12-78); ALBUMIN 3.7 G/DL (3.4-5.0); ALBUMIN/GLOBULIN RATIO 1.2 (1.0-2.7); ALKALINE PHOSPHATASE 90 U/L (46-116); ANION GAP 11 mmol/L (5-15); ASPARTATE AMINO TRANSFERASE 15 U/L (15-37); BILIRUBIN,TOTAL 1.3 MG/DL (0.2-1.0); BLOOD UREA NITROGEN 23 mg/dL (7-18); CALCIUM 9.2 MG/DL (8.5-10.1); CARBON DIOXIDE 24 MMOL/L (21-32); CHLORIDE 104 MMOL/L (98-107); CHOLESTEROL 175 MG/DL (< 200); CREATININE 1.1 MG/DL (0.55-1.30); HDL CHOLESTEROL 72 MG/DL (40-60); PHOSPHORUS 3.8 MG/DL (2.5-4.9); POTASSIUM 3.9 MMOL/L (3.5-5.1); SODIUM 139 MMOL/L (136-145); TRIGLYCERIDES 70 MG/DL (30-150)
[2018-05-14 07:47] LABS: BILIRUBIN,DIRECT 0.2 MG/DL (0.0-0.3)
[2018-05-14 08:00] VITALS: BP 163/72
[2018-05-14] MEDS: Metoprolol Tartrate 50mg tab ORAL SCH ×2 (08:11→20:20)
[2018-05-14 11:46] VITALS: BP 173/62
--- NOTE | 2018-05-14 12:36 | Nephrology Progress Note ---
Assessment/Plan Problem List: (1) Accelerated hypertension (2) Diabetes type 2, uncontrolled (3) Proteinuria (4) History of nephrectomy, unilateral Assessment s/p Nephrectomy Right - 3 years ago HTN DM- proteinuria ? Nephropathy UTI Plan Adjust BP meds- Norvasc Hydralazin Lopressor BS control- starlix Avoid nephrotoxics urine cultures ? DC Subjective ROS Limited/Unobtainable: No Objective Objective Last 24 Hour Vital Signs Date Time Temp Pulse Resp B/P (MAP) Pulse Ox O2 Delivery O2 Flow Rate FiO2 05/14/18 11:46 98.4 69 12 173/62 (99) 98 05/14/18 09:00 Room Air 05/14/18 08:11 74 163/72 05/14/18 08:11 72 163/72 05/14/18 08:00 97.7 74 18 163/72 (102) 98 05/14/18 08:00 72 05/14/18 05:23 168/74 05/14/18 04:00 60 05/14/18 04:00 98.2 67 20 168/74 (105) 97 05/14/18 00:00 98.0 59 20 162/68 (99) 95 05/14/18 00:00 58 05/13/18 21:00 Room Air 05/13/18 20:44 73 169/66 05/13/18 20:00 98.8 71 20 169/66 (100) 95 71 05/13/18 20:00 71 05/13/18 16:08 183/70 05/13/18 16:00 96.4 67 22 162/72 (102) 94 05/13/18 16:00 72 Intake and Output 05/13/18 05/14/18 19:00 07:00 # Voids 5 3 # Bowel Movements 3 3 Current Medications Medications (Trade) Dose Ordered Sig/Caroline Route PRN Reason Start Time Stop Time Status Last Admin Dose Admin Acetaminophen (Tylenol) 650 mg Q4H PRN ORAL Mild Pain/Temp > 100.5 05/12/18 20:30 06/11/18 20:29 Amlodipine Besylate (Norvasc) 10 mg DAILY ORAL 05/13/18 09:30 06/12/18 09:29 05/14/18 08:11 Dextrose (Dextrose 50%) 25 ml Q30M PRN IV Hypoglycemia 05/12/18 22:15 1/19/19 22:14 Dextrose (Dextrose 50%) 50 ml Q30M PRN IV Hypoglycemia 05/12/18 22:15 06/11/18 22:14 Hydralazine HCl (Apresoline) 25 mg Q4H PRN ORAL bp over 160 syst 05/13/18 09:15 06/12/18 09:14 05/14/18 05:23 Hydralazine HCl (Apresoline) 25 mg Q8HR ORAL 05/14/18 14:00 06/13/18 13:59 Insulin Aspart (NovoLOG) BEFORE MEALS AND HS SUBQ 05/13/18 06:30 06/12/18 06:29 05/14/18 11:58 Metoprolol Tartrate (Lopressor) 50 mg Q12HR ORAL 05/12/18 21:00 06/11/18 20:59 05/14/18 08:11 Nateglinide (Starlix) 120 mg TIAC ORAL 05/14/18 11:30 06/12/18 11:29 05/14/18 11:57 Laboratory Tests 05/14/18 05:35: White Blood Count 5.4, Red Blood Count 4.28, Hemoglobin 13.0, Hematocrit 38.6, Mean Corpuscular Volume 90, Mean Corpuscular Hemoglobin 30.4, Mean Corpuscular Hemoglobin Concent 33.7, Red Cell Distribution Width 11.8, Platelet Count 230, Mean Platelet Volume 6.9, Neutrophils (%) (Auto) 59.8, Lymphocytes (%) (Auto) 29.1, Monocytes (%) (Auto) 7.0, Eosinophils (%) (Auto) 3.6H, Basophils (%) (Auto ) 0.5, Sodium Level 139, Potassium Level 3.9, Chloride Level 104, Carbon Dioxide Level 24, Anion Gap 11, Blood Urea Nitrogen 23H, Creatinine 1.1, Estimat Glomerular Filtration Rate , Glucose Level 185H, Uric Acid 6.0, Calcium Level 9.2, Phosphorus Level 3.8, Magnesium Level 2.0, Total Bilirubin 1.3H, Direct Bilirubin 0.2, Aspartate Amino Transf (AST/SGOT) 15, Alanine Aminotransferase (ALT/SGPT) 33, Alkaline Phosphatase 90, Total Protein 6.9, Albumin 3.7, Globulin 3.2, Albumin/Globulin Ratio 1.2, Triglycerides Level 70, Cholesterol Level 175, LDL Cholesterol 105H, HDL Cholesterol 72H, Cholesterol/ HDL Ratio 2.4L, Thyroid Stimulating Hormone (TSH) 1.426 Height (Feet): 5 Height (Inches): 6.00 Weight (Pounds): 176 General Appearance: no apparent distress Cardiovascular: regular rhythm Abdomen: soft Objective no change Raymond Herrera MD May 14, 2018 12:36
[2018-05-14] MEDS: HydrALAZINE 25mg tab ORAL SCH ×2 (13:53→17:38)
[2018-05-14 16:00] VITALS: BP 180/75
[2018-05-14 20:00] VITALS: BP 165/75
[2018-05-14] MEDS: HydrALAZINE 50mg tab ORAL SCH (21:56)
[2018-05-15] VITALS: BP 175/72
--- NOTE | 2018-05-15 01:15 | Progress Note ---
DATE: 05/14/2018 NOTE: "POOR AUDIO QUALITY/DISTORTED AUDIO" SUBJECTIVE: The patient is an elderly lady who came in with uncontrolled high blood pressure. The patient is still high. She is asymptomatic currently. OBJECTIVE: VITAL SIGNS: Blood pressure currently 183/90, pulse 68, respirations 18, no fever. CHEST: Bilaterally clear. CARDIOVASCULAR: Regular rhythm. No gallop. No murmur. ABDOMEN: Soft. EXTREMITIES: No CCE. ASSESSMENT: 1. Malignant hypertension. 2. Diabetes. 3. Hypertension. PLAN: 1. We will increase hydralazine to 50 mg t.i.d. 2. Continue metoprolol. 3. Continue Norvasc. 4. Continue metformin. 5. We will follow the blood pressure tomorrow. If it is less than follow up as an outpatient. Hamlet Rajput M.D. DR: NORRIS JOB#: [id number] CC:
[2018-05-15 04:00] VITALS: BP 135/83
[2018-05-15] MEDS: HydrALAZINE 50mg tab ORAL SCH (05:44)
[2018-05-15] MEDS: NovoLOG Insulin Flexpen SUBQ SCH ×2 (05:48→11:40)
[2018-05-15 08:00] VITALS: BP 178/84
[2018-05-15] MEDS: HydrALAZINE 25mg tab ORAL PRN (09:10)
[2018-05-15] MEDS: Metoprolol Tartrate 50mg tab ORAL SCH (09:10)
[2018-05-15 09:40] VITALS: BP 152/72
[2018-05-15] MEDS ORDERED: Metoprolol 25mg tab ORAL SCH (11:40)
[2018-05-15 12:00] VITALS: BP 186/78
[2018-05-15 12:30] VITALS: BP 164/82
[2018-05-15] MEDS ORDERED: APRESOLINE50 MG ORAL (12:30)
[2018-05-15] MEDS ORDERED: METOPROLOL TART50 M1 ORAL (12:30)
--- NOTE | 2018-05-15 13:36 | Nephrology Progress Note ---
Assessment/Plan Problem List: (1) Accelerated hypertension (2) Diabetes type 2, uncontrolled (3) Proteinuria (4) History of nephrectomy, unilateral Assessment s/p Nephrectomy Right - 3 years ago HTN DM- proteinuria ? Nephropathy UTI Plan Adjust BP meds- Norvasc Hydralazin Lopressor up on lopressor's dose BS control- starlix Avoid nephrotoxics urine cultures ? DC Subjective ROS Limited/Unobtainable: No Interval Events/Complaints seen at 10 am - late entery Constitutional: Reports: other - anxious Objective Objective Last 24 Hour Vital Signs Date Time Temp Pulse Resp B/P (MAP) Pulse Ox O2 Delivery O2 Flow Rate FiO2 05/15/18 12:00 97.7 83 18 186/78 (114) 98 05/15/18 11:38 88 188/86 05/15/18 09:40 152/72 (98) 05/15/18 09:10 178/84 05/15/18 09:10 88 178/84 05/15/18 09:09 88 178/84 05/15/18 09:00 Room Air 05/15/18 08:00 76 05/15/18 08:00 178/84 (115) 05/15/18 08:00 98.4 88 18 /84 96 05/15/18 05:44 135/83 05/15/18 04:00 68 05/15/18 04:00 97.6 73 20 135/83 (100) 97 05/15/18 00:00 67 05/15/18 00:00 98.5 68 20 175/72 (106) 95 05/14/18 21:56 165/75 05/14/18 21:00 Room Air 05/14/18 20:20 78 165/75 05/14/18 20:00 75 05/14/18 20:00 97.9 85 20 165/75 (105) 97 05/14/18 17:38 180/75 05/14/18 16:00 98.2 72 18 180/75 (110) 98 05/14/18 16:00 69 05/14/18 13:53 173/62 Intake and Output 05/14/18 05/15/18 19:00 07:00 Intake Total 660 ml Balance 660 ml Intake Oral 660 ml # Voids 2 2 # Bowel Movements 3 Height (Feet): 5 Height (Inches): 6.00 Weight (Pounds): 176 General Appearance: no apparent distress Cardiovascular: normal rate Respiratory/Chest: lungs clear Objective no change Raymond Herrera MD May 15, 2018 13:36
--- NOTE | 2018-05-15 14:19 | Cardiology Report ---
APPROVED REPORT EKG Measurement Heart [id number] Sinus bradycardia Possible Anterior infarct, age undetermined Abnormal ECG
[2018-05-15] MEDS ORDERED: Metoprolol Tartrate 50mg tab ORAL SCH (21:00)
--- NOTE | 2018-05-15 21:15 | Progress Note ---
DATE: 05/15/2018 PROGRESS NOTE AND DISCHARGE SUMMARY REASON FOR ADMISSION: Malignant hypertension, history of TIA. SUBJECTIVE: This is an elderly female, currently doing better. OBJECTIVE: VITAL SIGNS: Her blood pressure is 152/90 with hydralazine. Vital signs are stable. GENERAL: The patient is asymptomatic. CHEST: Bilaterally clear. CARDIOVASCULAR: Regular rhythm. ABDOMEN: Soft. EXTREMITIES: CCE. NEUROLOGICAL: No focal deficit. ASSESSMENT: 1. Malignant hypertension, controlled. 2. Transient ischemic attack. 3. History of renal cell CA. DIET: She is on 2 grams sodium diet. ACTIVITY: As tolerated. DISCHARGE MEDICATIONS: The patient is going to continue Norvasc 10 mg daily, metoprolol 50 mg p.o. b.i.d., hydralazine 50 mg t.i.d. FOLLOW UP: Follow up as an outpatient, 2 g salt and lipid restriction. Hamlet Rajput M.D. DR: Angela JOB#: [id number] CC:
--- NOTE | 2018-05-17 09:21 | Discharge Summary ---
Discharge Summary Discharge Summary _ DATE OF ADMISSION: 05/12/2018 DATE OF DISCHARGE: 05/15/2018 DISCHARGED BY: Dr. Rajput REASON FOR ADMISSION: 72 years old female with past medical history of hypertension, diabetes, right kidney cancer, status post nephrectomy 3 years ago, presented to emergency room with complaints of difficulty controlling blood pressure. Upon upon presentation blood pressure was 188/67. Laboratory workup revealed no leukocytosis, stable hemoglobin hematocrit. BUN 30 ,creatinine 1.1. Glucose 259. Troponin negative. ECG revealed sinus bradycardia ( HR 56), no acute ischemic changes. Urinalysis with +2 protein ,+2 glucose, +3 leukocyte esterase, pyuria, but only few bacteria. CT of the head revealed no evidence of acute intracranial hemorrhage, mass effect or midline shift. Focus of low-attenuation in the periventricular white matter of the right parietal lobe, more pronounced compared to the prior exam, noted. Patient admitted with diagnosis of malignant hypertension, TIA, diabetes mellitus, status post nephrectomy, possible UTI. CONSULTANTS: operations and maintenance specialist Dr. Herrera HOSPITAL COURSE: Patient admitted to monitored floor. Clinical Rehab Specialist closely followed. Antihypertensive regimen uptitrated and included Norvasc, hydralazine and Lopressor. Blood pressure stabilized. Antiplatelet therapy with aspirin was continued. Lipid panel revealed elevated LDL 105. Patient educated on low-salt, low-fat , low-cholesterol , diabetic diet and other therapeutic life style changes. Repeat lipid panel in 3 months. Blood sugar was managed with Starlix and sliding scale of insulin as needed. Hemoglobin A1c 7.2. Blood sugar improved. Patient was educated on adherence with diabetic diet and medication regimen. Patient with evidence of proteinuria , probably diabetic nephropathy. Clinical Rehab Specialist recommended to avoid nephrotoxic. Renal parameters and electrolytes were closely monitored. Electrolytes corrected as needed. BUN from initial 30 down to 23. Urine culture revealed Staph coagulase negative and mixed gram-positive organisms, both with colony count 20-30. Patient was afebrile, no leukocytosis ,no urinary complaints. Antibiotics stopped. Patient clinically stabilized and was ready for discharge home. FINAL DIAGNOSES: Malignant hypertension due to hypertensive urgency- resolved Diabetes mellitus , uncontrolled Probable diabetic nephropathy Proteinuria History of renal CA, status post right nephrectomy TIA DISCHARGE MEDICATIONS: See Medication Reconciliation list. DISCHARGE INSTRUCTIONS: Patient was discharged home . Follow up with primary care provider in one week. I have been assigned to dictate discharge summary for this account. I was not involved in the patient's management. Regla Ramey NP May 17, 2018 09:21
== END 2018-05-15 12:51 | disposition home or self-care (01) | DRG 305 ==
LOC: EMR 10:35 → 2E 17:30 → EDBEDREQ 17:54
DX: I16.0 Hypertensive urgency (principal); E11.65 Type 2 diabetes mellitus with hyperglycemia; E11.21 Type 2 diabetes mellitus with diabetic nephropathy; Z85.528 Personal history of other malignant neoplasm of kidney; Z90.5 Acquired absence of kidney; Z86.73 Personal history of transient ischemic attack (TIA), and cerebral infarction without residual deficits; Z88.6 Allergy status to analgesic agent; Z88.0 Allergy status to penicillin; Z88.8 Allergy status to other drugs, medicaments and biological substances
CPT/HCPCS: 36415; 70450; 80053; 80061; 81003; 82248; 82550; 82553; 82962; 83036; 83735; 84100; 84443; 84484; 84550; 85025; 87081; 87086; 93005; 96361; 96365; 96375; 96376; 99285; J1815

== ENCOUNTER 2018-07-11 14:35 | Outpatient (CLI) | payer BC ==
[~2018-07-11] VITALS: Ht 167.6 cm; Wt 81.2 kg
[~2018-07-11 14:35] MED LIST changes: +ASPIR 8181 MG ORAL; +HYDRALAZINE HCL25 M1 ORAL; +HYDRALAZINE HCL50 MG ORAL; +METOPROLOL SUCC25 MG ORAL; +METOPROLOL TART50 M1 ORAL; +NITROFURANTOIN100 M2 ORAL; +NORVASC2.5 MG ORAL
--- NOTE | 2018-07-11 23:30 | Consultation ---
DATE OF CONSULTATION: 07/11/2018 CONSULTING PHYSICIAN: Nacho Reynaga M.D. CHIEF COMPLAINT: Screening for colonoscopy, diarrhea-constipation cycle, hemorrhoids. HISTORY OF PRESENT ILLNESS: This is a very pleasant 72-year-old female. Her last colonoscopy was in 1994. She presented to the office for evaluation for screening colonoscopy. PAST MEDICAL HISTORY: 1. Hypertension. 2. Diabetes. 3. History of kidney cancer. 4. Hemorrhoids. PAST SURGICAL HISTORY: Bilateral THR, right nephrectomy, bilateral cataract surgery. MEDICATIONS: Aspirin, metoprolol, and amlodipine. FAMILY HISTORY: Mother had breast cancer. SOCIAL HISTORY: Denies any tobacco, alcohol, or illicit drug abuse. ALLERGIES: To penicillin. REVIEW OF SYSTEMS: A 10-point review of systems was performed and pertinent positives in the HPI. PHYSICAL EXAMINATION: VITAL SIGNS: Temperature 98.3, pulse is 87, respirations 20, and blood pressure is 150/71. HEENT: Normocephalic and atraumatic. Sclerae anicteric. NECK: Supple. No obvious evidence of lymphadenopathy. CARDIOVASCULAR: Regular rhythm. Plus S1 and S2. No obvious murmur. LUNGS: Clear to auscultation bilaterally. ABDOMEN: Positive bowel sounds. Soft, nontender. No rebound. No guarding. No peritoneal sign. EXTREMITIES: No cyanosis, no clubbing, no edema. ASSESSMENT AND PLAN: This is a 72-year-old female with: 1. Need for screening colonoscopy. Instruction for the prep was given to the patient. We are waiting for insurance authorization to schedule her. 2. Chronic constipation for three days followed by diarrhea, most likely secondary to IBS. The patient was started on and was given MiraLAX 17 g p.o. nightly. 3. Hemorrhoids. The patient was given Anusol suppository treatment to use as p.r.n. I want to thank, Dr. Gillis, for this kind referral. Nacho Reynaga M.D. DR: PRABHU JOB#: [id number] CC: Kole Gillis M.D.; Fax#: [phone]
[2018-07-12 08:28] VITALS: BP 156/71
== END 2018-07-11 16:35 | disposition home or self-care (01) ==
LOC: PAN 14:35
DX: R19.7 Diarrhea, unspecified (principal); K59.00 Constipation, unspecified; K64.9 Unspecified hemorrhoids; I10 Essential (primary) hypertension; E11.9 Type 2 diabetes mellitus without complications; Z85.528 Personal history of other malignant neoplasm of kidney; Z88.0 Allergy status to penicillin

== ENCOUNTER 2018-07-14 13:26 | Inpatient (IN) | payer BC, MEDICARE ==
[~2018-07-14] VITALS: Ht 167.6 cm; Wt 79.4 kg
--- NOTE | 2018-07-14 13:30 | NUR ---
CAME TO ER WITH NUMBNESS OF THE LEFT LIPS TODAY ABOUT 20 MINITES AGO . PATIENT WAS AT WORK WHEN IT HAPPENED . PATIENT IS AWAKE ALER ORIENTED X 4 NO WEAKNESS OR LOC NOTED CODE STROKE HAS BEEN PAGED
--- NOTE | 2018-07-14 13:40 | NUR ---
ED Nurse Note: AMBULATED IN TO ER AFTER WORK DUE TO NUMBNESS AND TINGLING SENSATION ON THE LEFT SIDE OF THE FACE. DENIES NUMBNESS OR TINGLING SENSATION AT THIS TIME. DENIES CP OR SOB. HX STROKE AND HTN. PT STATES SHE TOOK BP MED TODAY AND SHE ONLY HAS ONE KIDNEY. 184/81. BS 67. NO DRIFT NOTED ON THE BILATERAL ARM. NO FACIAL DROOPING NOTED. NO SLURRED SPEECH NOTED.
[2018-07-14 13:45] VITALS: BP 184/81
--- NOTE | 2018-07-14 13:45 | NUR ---
ED Nurse Note: pt went down for CT
[2018-07-14 13:51] VITALS: BP 208/98
--- NOTE | 2018-07-14 13:52 | Emergency Room Report ---
History of Present Illness General Chief Complaint: Stroke Symptoms Source: Patient Present Illness HPI 72-year-old female with history of hypertension, type 2 diabetes, high cholesterol, and self-reported strokex2 last year with no residual deficits, presents with left face and right foot tingling with associated dizziness that started 15 minutes ago while she was at work, last known normal 1:20pm. She currently reports her symptoms have resolved, she never had headache, never had surgery speech, just felt this tingling sensation in the left face and right foot, as well as the dizziness, all the symptoms have now resolved as mentioned. She reports she was sitting at her desk at work when this happened. Allergies: Coded Allergies: PENICILLINS (Verified Allergy, Severe, SWELLING, 06/28/18) MITCHELL INHIBITORS (Verified Allergy, Unknown, 06/28/18) CODEINE (Verified Allergy, Unknown, GI UPSET,HEADACHE, 06/28/18) DIPHENHYDRAMINE (Verified Allergy, Unknown, 06/28/18) Patient History Past Medical History: see triage record Now: No Reviewed Nursing Documentation: PMH: Agreed; PSxH: Agreed Nursing Documentation-PMH Hx Cardiac Problems: Yes Hx Hypertension: Yes Hx Diabetes: Yes - DM2 Hx Cancer: Yes - Rt. Kidney CA- REMOVED Hx Gastrointestinal Problems: No Hx Neurological Problems: No Review of Systems All Other Systems: negative except mentioned in HPI Physical Exam Vital Signs Date Time Temp Pulse Resp B/P (MAP) Pulse Ox O2 Delivery O2 Flow Rate FiO2 07/14/18 13:33 68 17 208/98 98 Room Air Sp02 EP Interpretation: reviewed, normal General Appearance: no apparent distress, alert, non-toxic Head: normocephalic Eyes: bilateral eye normal inspection, bilateral eye PERRL, bilateral eye EOMI ENT: normal ENT inspection, hearing grossly normal, normal pharynx, no angioedema, normal voice, moist mucus membranes Neck: normal inspection, full range of motion, supple, supple/symm/no masses Respiratory: chest non-tender, lungs clear, normal breath sounds, chest symmetrical, palpation of chest normal Cardiovascular #1: normal peripheral pulses, regular rate, rhythm Cardiovascular #2: 2+ radial (R), 2+ radial (L) Gastrointestinal: normal inspection, non tender, soft, no mass, no guarding, no rebound Rectal: deferred Genitourinary: normal inspection, no CVA tenderness Musculoskeletal: back normal, gait/station normal, normal range of motion, non- tender, no calf tenderness Neurologic: alert, responsive, office helper III-XII nml as tested, motor strength/tone normal, sensory intact, speech normal, other - nIH stroke scale of 0 Psychiatric: judgement/insight normal, memory normal, anxious Skin: normal color, no rash, warm/dry, normal turgor Lymphatic: no adenopathy Medical Decision Making Diagnostic Impression: Primary Impression: Stroke-like symptoms ER Course Patient with completely normal neuro exam, and reports her numbness sensation in the left face and right foot resolved prior to my evaluation, so symptoms are very transient, lasting maybe 15 minutes max. She also had dizziness that resolved prior to my evaluation, and she has no nystagmus, and has a completely normal neurologic examination. I did activate a code stroke system, but patient does not meet TPA criteria as her stroke scale is 0 and her symptoms resolved even prior to my evaluation. She'll be signed out to oncoming physician pending labs, chest x-ray, EKG, head CT. Last Vital Signs Date Time Temp Pulse Resp B/P (MAP) Pulse Ox O2 Delivery O2 Flow Rate FiO2 07/14/18 13:33 68 17 208/98 98 Room Air Condition: Stable GOPAL BERGMAN M.D Jul 14, 2018 13:52
--- NOTE | 2018-07-14 14:17 | Diagnostic Imaging Report ---
Indications: Left-sided facial weakness, right foot numbness Technique: Spiral acquisitions obtained through the brain. Angled axial and coronal 5 x 5 mm slices were reconstructed. Total dose length product 1474.61 mGycm. CTDI vol(s) 70.38 mGy. Dose reduction achieved using automated exposure control Comparison: 2017 Findings: There is an area of cytotoxic edema, not evident previously seen in the left posterior parietal lobe, probably in the middle cerebral artery distribution. No associated hemorrhage. There is mild local mass effect. No other areas of edema demonstrated. No midline shift. No evidence of acute intracranial hemorrhage. Normal-sized ventricles and extra axial CSF spaces. There is minimal periventricular deep white matter low-attenuation, consistent with chronic microvascular ischemic change. No mass effect or midline shift. The calvarium is intact. The mastoids are clear. The included sinuses are clear. Impression: Cytotoxic edema, consistent with subacute infarct involving the posterior right parietal lobe. Minimal local mass effect, no associated hemorrhage No acute hemorrhage elsewhere Minimal chronic periventricular low-attenuation consistent with chronic ischemic changes, also evident previously Critical value stat code stroke findings phoned to Dr. Harrell in the emergency room at the time of interpretation The CT scanner at [facility] is accredited by the [employer] and the scans are performed using protocols designed to limit radiation exposure to as low as reasonably achievable to attain images of sufficient resolution adequate for diagnostic evaluation.
[2018-07-14 14:22] LABS: BASOPHILS % (AUTO) 0.9 % (0.0-2.0); EOSINOPHILS % (AUTO) 2.4 % (0.0-3.0); HEMATOCRIT 39.4 % (37.0-47.0); HEMOGLOBIN 13.3 G/DL (12.0-16.0); LYMPHOCYTES % (AUTO) 32.6 % (20.0-45.0); MEAN CORPUSCULAR VOLUME 91 FL (80-99); MONOCYTES % (AUTO) 6.5 % (1.0-10.0); NEUTROPHILS % (AUTO) 57.6 % (45.0-75.0); PLATELET COUNT 243 K/UL (150-450); RED BLOOD COUNT 4.35 M/UL (4.20-5.40); RED CELL DISTRIBUTION WIDTH 12.2 % (11.6-14.8); WHITE BLOOD COUNT 6.9 K/UL (4.8-10.8)
[2018-07-14 14:33] LABS: APPEARANCE,URINE CLEAR; BILIRUBIN, URINE NEGATIVE (NEGATIVE); COLOR,URINE PALE YELLOW; GLUCOSE, URINE (UA) NEGATIVE (NEGATIVE); KETONES,URINE NEGATIVE (NEGATIVE); LEUKOCYTE ESTERASE ,URINE 2+ (NEGATIVE); NITRITE,URINE NEGATIVE (NEGATIVE); PH,URINE 6 (4.5-8.0); PROTEIN,URINE 3+ (NEGATIVE); UROBILINOGEN,URINE NORMAL MG/DL (0.0-1.0)
[2018-07-14 14:36] LABS: ANION GAP 9 mmol/L (5-15); BLOOD UREA NITROGEN 25 mg/dL (7-18); CARBON DIOXIDE 25 MMOL/L (21-32); CHLORIDE 106 MMOL/L (98-107); CREATININE 1.1 MG/DL (0.55-1.30); POTASSIUM 4.4 MMOL/L (3.5-5.1); SODIUM 140 MMOL/L (136-145)
[2018-07-14 14:38] LABS: ALANINE AMINOTRANSFERASE 29 U/L (12-78); ALBUMIN 3.8 G/DL (3.4-5.0); ALBUMIN/GLOBULIN RATIO 1.1 (1.0-2.7); ALKALINE PHOSPHATASE 88 U/L (46-116); ASPARTATE AMINO TRANSFERASE 26 U/L (15-37); BILIRUBIN,TOTAL 0.6 MG/DL (0.2-1.0); CHOLESTEROL 184 MG/DL (< 200); HDL CHOLESTEROL 71 MG/DL (40-60); TRIGLYCERIDES 100 MG/DL (30-150)
--- NOTE | 2018-07-14 14:45 | NUR ---
ED Nurse Note: PT WENT DOWN TO MRI.
--- NOTE | 2018-07-14 15:03 | NUR ---
ED Nurse Note: pt returned from mri. remains A/ox4 denies numbness or tingling to left side of face now. states headache is gone. pt unable to have mri completed as she is claustrophobic. tech notifying
[2018-07-14] MEDS: LORazepam 1mg tab ORAL ONE ×2 (15:24→15:45)
--- NOTE | 2018-07-14 15:30 | NUR ---
ED Nurse Note: pt refused ativan pt states she doesn't want to take them because it makes her feel different, ERMD notified.
--- NOTE | 2018-07-14 15:32 | NUR ---
ED Nurse Note: ERMD notified regarding pt's blood pressure condition 199/83.
--- NOTE | 2018-07-14 15:45 | NUR ---
ED Nurse Note: pt states she wants to take ativan, pt would like to go try MRI again. ERMD notified and ativan given, prior med was wasted w/ witness rick.
--- NOTE | 2018-07-14 16:07 | NUR ---
ED Nurse Note: pt currently denies stroke like sx, pt airway intact, resp even and unlabored on RA, denies RODRÍGUEZ, BUE/BLE strength +5, ambulates w/ steady gait, good carbon plant grinder, no dysphagia or facial droop, denies weakness, -n/v/d, nor vision/hearing changes will cont montor. pt advised to notify staff if changes in condition or need assist.
--- NOTE | 2018-07-14 16:36 | NUR ---
ED Nurse Note: report given to RN Joe, all belongings sent w/ pt, pt no neuro changes, no stroke like s/s at this time, resp even and unlabored on RA, -n/v/d, verified w/ ERMD, pt will go to MRI from tele floor.
--- NOTE | 2018-07-14 16:40 | NUR ---
NURSE NOTES: Patient is transferred from ED and received report from KAVON Freire. Patient is in stable condition. No acute distress/SOB noted. Patient denies any pain/discomfort at this time. No facial drooping noted. Patient denies any numbness or tingling sensation. Patient is alert and oriented x4. Call light placed in easy reach. Will continue plan of care.
[2018-07-14 16:45] VITALS: BP 174/77
[2018-07-14] MEDS ORDERED: D5 1/2NS 1,000 ML IV SCH (17:17)
[2018-07-14] MEDS ORDERED: Nitroglycerin Subl 0.4mg tab SL PRN (17:30)
[2018-07-14] MEDS ORDERED: Morphine Sulfate 2mg/ml Inj(IV/IM USE ONLY) IVP PRN (17:30)
[2018-07-14] MEDS ORDERED: Mylanta II UD 30ml ORAL PRN (17:30)
[2018-07-14] MEDS ORDERED: LORazepam Inj 2mg/ml 1ml IV PRN (17:30)
[2018-07-14] MEDS ORDERED: Albuterol/Ipratropium 3ml neb HHN PRN (17:30)
[2018-07-14] MEDS ORDERED: Miralax 17gm pkt ORAL PRN (17:30)
--- NOTE | 2018-07-14 17:31 | Diagnostic Imaging Report ---
Indication: Cough Technique: One view of the chest Comparison: 09/24/2017 Findings: The heart is mildly enlarged. The upper mediastinum is unremarkable. The lungs and pleural spaces are clear. No significant interim change Impression: Mild cardiomegaly. No acute process
--- NOTE | 2018-07-14 18:20 | History & Physical ---
History and Physical History & Physicial Dictated for Int Med-Dr Gillis no. [id number]. Marcos Kelly MD Jul 14, 2018 18:20
--- NOTE | 2018-07-14 19:35 | NUR ---
HAND-OFF: Report given to KAVON Bruno. Patient asleep. No acute distress/SOB noted. Endorsed plan of care.
--- NOTE | 2018-07-14 19:36 | NUR ---
NURSE NOTES: Received report from KAVON London. Patient in bed asleep showing no signs of acute distress. Vital stable. No Sob. Respiration even and non labored on room air. IV site patent and intact. Bed in lowest position. Call light within reach. All needs attended and met. Will continue plan of care.
[2018-07-14 20:00] VITALS: BP 169/69
[2018-07-14] MEDS: Metoprolol Tartrate 50mg tab ORAL SCH (21:09)
--- NOTE | 2018-07-14 21:15 | History and Physical Report ---
DATE OF ADMISSION: 07/14/2018 CHIEF COMPLAINT: The patient is a 72-year-old female, who presents with chief complaint of left face and right foot tingling associated with dizziness. HISTORY OF PRESENT ILLNESS: The patient herself reports cerebrovascular accident x2 in 2018. The patient states she was in her usual state of health until this morning. The patient began to experience left face and right foot tingling. This is associated with dizziness. The patient states it started at approximately 1:20 this afternoon. The patient was at work. The patient presented to [facility]. An initial CT scan of the brain revealed cytotoxic edema of the left posterior parietal lobe. The patient is admitted with acute cerebrovascular accident. REVIEW OF SYSTEMS: CONSTITUTIONAL: The patient denies weight loss or weight gain. The patient denies fevers or chills. HEENT: The patient denies ear or throat pain. The patient denies headache. CARDIOVASCULAR: The patient denies palpitations or chest pain. CHEST: The patient denies wheeze or shortness of breath. ABDOMEN: The patient denies nausea, vomiting, diarrhea, or constipation. GENITOURINARY: The patient denies dysuria or increased frequency of urination. NEUROMUSCULAR: The patient complains of left face and right foot tingling as above. The patient complains of vertigo. The patient denies seizures or generalized weakness. PAST MEDICAL HISTORY: Significant for: 1. Type 2 diabetes. 2. Hypertension. 3. History of right renal cell cancer. 4. Self-reported cerebrovascular disease. PAST SURGICAL HISTORY: Significant for: 1. Right hip total arthroplasty in 2013. 2. Right nephrectomy in 2014. CURRENT MEDICATIONS: 1. Amlodipine 10 mg one tablet p.o. daily. 2. Aspirin 81 mg p.o. daily. 3. Hydralazine 50 mg p.o. twice daily. 4. Insulin degludec 20 units subcutaneously daily. 5. Metoprolol 50 mg p.o. twice daily. ALLERGIES: 1. MITCHELL inhibitors. 2. Codeine. 3. Diphenhydramine. 4. Penicillin. SOCIAL HISTORY: The patient is single and lives alone. The patient denies tobacco or alcohol use. PHYSICAL EXAMINATION: VITAL SIGNS: Temperature 97.5, respirations 17, pulse 98, and blood pressure __/98. GENERAL: The patient is a well-developed and well-nourished female, in no apparent distress. HEENT: Eyes, pupils are equal and responsive to light and accommodation. Extraocular movements are intact. NECK: Supple without lymphadenopathy. CHEST: Lungs are clear to auscultation bilaterally without wheezes or rales. CARDIOVASCULAR: Regular rhythm and rate. S1 and S2 normal without murmurs, rubs, or gallops. ABDOMEN: Soft, nontender, and nondistended. Positive bowel sounds. No evidence of hepatosplenomegaly. Currently, no rebound or guarding noted. EXTREMITIES: Negative for clubbing, cyanosis, or edema. RECTAL/GENITAL: Refused. NEUROLOGIC: Cranial nerves II through XII are grossly intact without focal deficits. Motor strength is 5/5 bilaterally. Deep tendon reflexes are 2+ plantar. LABORATORY STUDIES: WBC 6.9, hemoglobin 13.2, hematocrit 39.4, and platelets 243,000. Sodium 140, potassium 4.4, chloride 106, CO2 25, BUN 25, and creatinine 1.1. Glucose 56. Troponin 0.010. CT scan of the brain revealed cytotoxic edema of the left posterior parietal lobe consistent with subacute cerebrovascular accident. ASSESSMENT: This is a 72-year-old female with: 1. Acute cerebrovascular accident. 2. Cerebrovascular disease. 3. Diabetes type 2. 4. Hypertension. 5. Renal cell cancer. TREATMENT: 1. Left acute cerebrovascular accident. A Neurology consultation has been obtained with Dr. Malvin James. An MRI of the brain is pending. We will follow recommendations of Dr. James. The patient has been started empirically on aspirin. 2. Diabetes type 2. The patient has been placed on a NovoLog sliding scale. 3. Hypertension. Continue amlodipine as above. Clonidine has been added p.r.n. for systolic greater than 150 or diastolic greater than 100. 4. History of renal cell cancer, status post resection. Marcos Kelly M.D. DR: TIMA JOB#: [id number] CC:
[2018-07-14] MEDS: Heparin 5000 units/ml inj SUBQ SCH (21:16)
[2018-07-15] VITALS: BP 160/73
[2018-07-15 04:00] VITALS: BP 155/78
--- NOTE | 2018-07-15 07:09 | NUR ---
HAND-OFF: Report given to KAVON London.
--- NOTE | 2018-07-15 07:10 | NUR ---
NURSE NOTES: Received report from KAVON Bruno. Patient is in stable condition. No acute distress/SOB noted. Patient denies any pain/discomfort. Will continue plan of care.
--- NOTE | 2018-07-15 07:44 | NUR ---
CASE MANAGEMENT:REVIEW 72 YR OLD FEMALE FROM HOME CC: STROKE SYMPTOMS. LEG TINGLING. WEAKNESS. MOUTH NUMBNESS SI: ACUTE CVA. HTN 97.5 68 17 208/98 98% ON RA BUN+25 GLUCOSE-66 IS: ASA PO ATIVAN PO IV HYDRALAZINE NEURO CHECKS CXR CT HEAD MRI BRAIN : TO TELEMETRY INTERQUAL CRITERIA MET
[2018-07-15 07:45] LABS: EOSINOPHILS % (AUTO) 4.8 % (0.0-3.0); HEMATOCRIT 40.6 % (37.0-47.0); HEMOGLOBIN 13.3 G/DL (12.0-16.0); LYMPHOCYTES % (AUTO) 38.9 % (20.0-45.0); MEAN CORPUSCULAR VOLUME 92 FL (80-99); MONOCYTES % (AUTO) 7.7 % (1.0-10.0); NEUTROPHILS % (AUTO) 47.6 % (45.0-75.0); PLATELET COUNT 259 K/UL (150-450); RED BLOOD COUNT 4.42 M/UL (4.20-5.40); RED CELL DISTRIBUTION WIDTH 12.3 % (11.6-14.8); WHITE BLOOD COUNT 4.2 K/UL (4.8-10.8)
[2018-07-15 08:00] VITALS: BP 195/82
[2018-07-15] MEDS: Metoprolol Tartrate 50mg tab ORAL SCH (08:12)
[2018-07-15 08:14] LABS: ANION GAP 8 mmol/L (5-15); BLOOD UREA NITROGEN 25 mg/dL (7-18); CARBON DIOXIDE 27 MMOL/L (21-32); CHLORIDE 105 MMOL/L (98-107); POTASSIUM 3.9 MMOL/L (3.5-5.1); SODIUM 140 MMOL/L (136-145)
[2018-07-15 08:15] LABS: CALCIUM 9.1 MG/DL (8.5-10.1)
[2018-07-15] MEDS: Heparin 5000 units/ml inj SUBQ SCH ×2 (08:18→20:42)
[2018-07-15 08:27] LABS: AMMONIA 15 umol/L (11-32)
[2018-07-15 08:39] LABS: ALANINE AMINOTRANSFERASE 32 U/L (12-78); ALBUMIN 3.7 G/DL (3.4-5.0); ALBUMIN/GLOBULIN RATIO 1.1 (1.0-2.7); ALKALINE PHOSPHATASE 78 U/L (46-116); ASPARTATE AMINO TRANSFERASE 25 U/L (15-37); BILIRUBIN,TOTAL 0.9 MG/DL (0.2-1.0); CHOLESTEROL 180 MG/DL (< 200); HDL CHOLESTEROL 70 MG/DL (40-60); TRIGLYCERIDES 58 MG/DL (30-150)
--- NOTE | 2018-07-15 11:26 | NUR ---
SWALLOW/SPEECH THERAPY NOTE: SEE SWALLOW EVAL REFERRED FOR SWALLOW EVAL BY DR PRYOR (PRIMARY MDs DR GONZALEZ AND STEVE) DYSPHAGIA RISK FACTORS FOR THIS 72 Y.O.F.: R CVA (PARIETAL LOBE INFARCT WITH MIN LOCAL MASS EFFECT PER CT HEAD SUBACUTE INFARCT) ONE DAY POST HAD L FACIAL AND R FOOT TINGLING FOR 15 MINUTES. BRAIN MRI COMPLETED AND REPORT IS PENDING AND NEUROLOGIST DR DONNELL BUCKNER. H/O PHARYNGEAL DYSPHAGIA FOR 20 YEARS COUGHED MASTICATED SOLIDS (LIKE HER MOTHER AND SISTER) ALSO HAD DYSPHAGIA OR COUGHING ON WATER FROM BOTTLE ESPECIALLY WHEN DISTRACTED, S/P STROKE IN APR (X2) HAD TONGUE WEAKNESS/SLUGGISH AND SPEECH SOUNDED LIKE SHE HAD A "LISP" WHICH RESOLVED BUT NO SWALLOWING PROBLEMS. PRIOR CVA X2 APR 2018 W/O STROKE RESIDUALS. ALSO TIA 03/24/2011. CXR CLEAR. RELEVANT MEDS ALBUTEROL, ATIVAN, ZOFRAN, MORPHINE H/O PNA X2 (1984 AND 1994 DATES), MUSCULOSKELETAL D/O, ENDOCRINE D/O, ETOH SOCIAL ONLY, HTN (MEDS THAT CAN CAUSE XEROSTOMIA), RENAL CELL CA (R NEPHRECTOMY), DM2 (INSULIN) SOCIAL LIVES ALONE IN [place]T. VOICE FUNCTIONAL AND SPEECH PRECISE AND ABLE TO EXPRESS NEEDS (KOREAN/TURKISH). ORIENTED X4 NO POLST REGARDING TUBE FEEDINGS IF NEEDS. REG DIET/THIN LIQUIDS PRIOR TO ADMIT AND NOW NPO EXCEPT MEDS AND ICE CHIPS. PER RN NO DIFFICULTY WITH MEDS WHOLE AND WATER. RD 04/2018 LOW NA AND CCHO-MED DIET REG TEXTURE THIN LIQUIDS INITIAL IMPRESSIONS: S/S OF AT LEAST A MILD OROPHARYNGEAL DYSPHAGIA (SOME MAY HAVE BEEN PREMORBID) WITH MILD INCREASED ORAL PREP AND OROPHARYNGEAL TRANSIT TIMES MOSTLY WITH MASTICATED SOLIDS/PUREEDS. MIN SLOWER WITH CHEWING (GOOD DENTITION) BUT GROSSLY FUNCTIONAL WITH MASTICATED SOLIDS BUT C/O COUGHING WITH FOODS DURING MEALS (PRIOR TO ADMIT). NO OVERT S/S OF ASP FAIR HYOLARYNGEAL ELEVATION/EXCURSION AND GROSSLY FUNCTIONAL WITH PUREED TSP W/O OVERT ASP NO OVERT S/S OF ASPIRATION WITH THIN LIQUIDS SEQUENTIAL SIPS VIA CUP (3 OZ WATER SANTOSH SWALLOW PROTOCOL) BUT C/O COUGHING WITH THIN LIQUIDS VIA BOTTLE FOR MANY YEARS. TONGUE IS IMPRECISE FOR TONGUE LAT TO CORNERS AND SLOWER SPEED FAIR STRENGTH LIPS SLIGHTLY ASYMMETRICAL LOWER ON LEFT BUT GOOD LIP CLOSURE. RECOMMENDATIONS: MOD BARIUM SWALLOW STUDY DEEPALI IF POSSIBLE DUE TO SILENT ASP RISK DUE TO RECENT AND PAST CVAS IF PO GIVEN FOR QUALITY OF LIFE (PATIENT WANTS TO EAT/DRINK NOW), CONSIDER MECH SOFT FINELY CHOPPED DIET AND NECTAR THICK LIQ FOR NOW (UNTIL MBS) WITH POSTED ASP AND REFLUX PREC WITH SUPERVISION PRN. PER RD PRIOR VISIT LOW NA AND CCHO-MED DYSPHAGIA MANAGEMENT/TX AND COG-COM EVAL/TX (CONTINUE) D/W STAFF AND PATIENT EDUCATED/TRAINED STAFF/P IN ASP AND REFLUX PREC POSTED.
[2018-07-15 12:00] VITALS: BP 173/77
--- NOTE | 2018-07-15 12:31 | Consultation ---
History of Present Illness General Date patient seen: Jul 15, 2018 Chief Complaint: Stroke Symptoms Present Illness HPI 72-year-old female with history of hypertension, type 2 diabetes, high cholesterol, presented to ER with left face and right foot tingling with associated dizziness that started 15 minutes ago while she was at work. Her symptoms have resolved, she never had headache. patient's CT scan showed an area of cytotoxic edema, consistent with a subacute infarct involving the posterior right parietal lobe. she is admitted to telemetry for further evaluation. Her systolic BP was 208 on presentation, currently it is 170. Allergies: Coded Allergies: PENICILLINS (Verified Allergy, Severe, SWELLING, 06/28/18) MITCHELL INHIBITORS (Verified Allergy, Unknown, 06/28/18) CODEINE (Verified Allergy, Unknown, GI UPSET,HEADACHE, 06/28/18) DIPHENHYDRAMINE (Verified Allergy, Unknown, 06/28/18) Medication History Scheduled Amlodipine Besylate* (Amlodipine Besylate*), 10 MG ORAL DAILY, (Reported) Aspirin* (Aspir 81*), 81 MG ORAL DAILY, (Reported) Hydralazine Hcl* (Hydralazine Hcl*), 50 MG ORAL BID, (Reported) Insulin Degludec (Tresiba Flextouch U-100), 20 UNIT SQ DAILY, (Reported) Metoprolol Tartrate* (Metoprolol Tartrate*), 50 MG ORAL EVERY 12 HOURS, ( Reported) Discontinued Medications Atenolol* (Tenormin*), 50 MG PO BID, (Reported) Discontinued Reason: MD discontinued med Clonidine Hcl* (Catapres*), 0.1 MG ORAL EVERY 6 HOURS PRN for For High Blood Pressure, (Reported) Discontinued Reason: MD discontinued med Nitrofurantoin Monohyd/M-Cryst* (Macrobid 100 Mg*), 100 MG ORAL EVERY 12 HOURS Discontinued Reason: MD discontinued med Polyethylene Glycol* (Miralax*), 17 GM ORAL DAILYPRN PRN Discontinued Reason: Pt stopped taking med Patient History Healthcare decision maker Resuscitation status Full Code Advanced Directive on File No Past Medical/Surgical History Past Medical/Surgical History: (1) History of nephrectomy, unilateral (2) Stroke-like symptoms (3) Diabetes type 2, uncontrolled (4) Renal cell carcinoma Review of Systems Eye: Reports: no symptoms ENT: Reports: no symptoms Respiratory: Reports: no symptoms Gastrointestinal: Reports: no symptoms Genitourinary: Reports: no symptoms Physical Exam General Appearance: WD/WN Lines, tubes and drains: peripheral, trach HEENT: normocephalic, atraumatic, PERRL Neck: non-tender, normal alignment Respiratory/Chest: chest wall non-tender, lungs clear, normal breath sounds Abdomen: normal bowel sounds Genitourinary/Rectal: normal genital exam Last 24 Hour Vital Signs Date Time Temp Pulse Resp B/P (MAP) Pulse Ox O2 Delivery O2 Flow Rate FiO2 07/15/18 12:00 97.0 57 18 173/77 (109) 99 07/15/18 09:00 Room Air 07/15/18 08:12 66 195/82 07/15/18 08:12 66 195/82 07/15/18 08:00 96.9 66 18 195/82 (119) 98 07/15/18 08:00 68 07/15/18 07:40 67 17 Room Air 21 07/15/18 04:00 96.6 72 18 155/78 (103) 99 07/15/18 04:00 69 07/15/18 00:00 72 07/15/18 00:00 97.4 71 18 160/73 (102) 99 07/14/18 21:09 75 169/69 07/14/18 21:00 Room Air 07/14/18 21:00 73 18 Room Air 21 07/14/18 20:00 71 07/14/18 20:00 97.7 75 18 169/69 (102) 97 07/14/18 17:42 Room Air 07/14/18 16:45 97.5 76 18 174/77 (109) 97 07/14/18 16:37 97.5 78 17 199/82 98 Room Air 07/14/18 15:44 199/98 07/14/18 15:00 68 17 Room Air 07/14/18 13:51 17 208/98 98 Room Air 07/14/18 13:45 68 16 184/81 99 Room Air 07/14/18 13:33 68 17 208/98 98 Room Air Intake and Output 07/14/18 07/15/18 19:00 07:00 Intake Total 50 ml 615 ml Balance 50 ml 615 ml Intake IV Total 50 ml 615 ml # Voids 3 Laboratory Tests Test 07/14/18 13:40 2/22/19 06:46 White Blood Count 6.9 K/UL (4.8-10.8) 4.2 K/UL (4.8-10.8) L Red Blood Count 4.35 M/UL (4.20-5.40) 4.42 M/UL (4.20-5.40) Hemoglobin 13.3 G/DL (12.0-16.0) 13.3 G/DL (12.0-16.0) Hematocrit 39.4 % (37.0-47.0) 40.6 % (37.0-47.0) Mean Corpuscular Volume 91 FL (80-99) 92 FL (80-99) Mean Corpuscular Hemoglobin 30.5 PG (27.0-31.0) 30.2 PG (27.0-31.0) Mean Corpuscular Hemoglobin Concent 33.7 G/DL (32.0-36.0) 32.9 G/DL (32.0-36.0) Red Cell Distribution Width 12.2 % (11.6-14.8) 12.3 % (11.6-14.8) Platelet Count 243 K/UL (150-450) 259 K/UL (150-450) Mean Platelet Volume 6.2 FL (6.5-10.1) L 6.6 FL (6.5-10.1) Neutrophils (%) (Auto) 57.6 % (45.0-75.0) 47.6 % (45.0-75.0) Lymphocytes (%) (Auto) 32.6 % (20.0-45.0) 38.9 % (20.0-45.0) Monocytes (%) (Auto) 6.5 % (1.0-10.0) 7.7 % (1.0-10.0) Eosinophils (%) (Auto) 2.4 % (0.0-3.0) 4.8 % (0.0-3.0) H Basophils (%) (Auto) 0.9 % (0.0-2.0) 1.0 % (0.0-2.0) Prothrombin Time 10.2 SEC (9.30-11.50) 10.1 SEC (9.30-11.50) Prothromb Time International Ratio 1.0 (0.9-1.1) 1.0 (0.9-1.1) Activated Partial Thromboplast Time 29 SEC (23-33) 29 SEC (23-33) Urine Color Pale yellow Urine Appearance Clear Urine pH 6 (4.5-8.0) Urine Specific [place] 1.015 (1.005-1.035) Urine Protein 3+ (NEGATIVE) H Urine Glucose (UA) Negative (NEGATIVE) Urine Ketones Negative (NEGATIVE) Urine Blood 1+ (NEGATIVE) H Urine Nitrite Negative (NEGATIVE) Urine Bilirubin Negative (NEGATIVE) Urine Urobilinogen Normal MG/DL (0.0-1.0) Urine Leukocyte Esterase 2+ (NEGATIVE) H Urine RBC 2-4 /HPF (0 - 2) H Urine WBC 5-10 /HPF (0 - 2) H Urine Squamous Epithelial Cells Few /LPF (NONE/OCC) Urine Bacteria Occasional /HPF (NONE) Sodium Level 140 MMOL/L (136-145) 140 MMOL/L (136-145) Potassium Level 4.4 MMOL/L (3.5-5.1) 3.9 MMOL/L (3.5-5.1) Chloride Level 106 MMOL/L (98-107) 105 MMOL/L (98-107) Carbon Dioxide Level 25 MMOL/L (21-32) 27 MMOL/L (21-32) Anion Gap 9 mmol/L (5-15) 8 mmol/L (5-15) Blood Urea Nitrogen 25 mg/dL (7-18) H 25 mg/dL (7-18) H Creatinine 1.1 MG/DL (0.55-1.30) 1.0 MG/DL (0.55-1.30) Estimat Glomerular Filtration Rate mL/min (>60) mL/min (>60) Glucose Level 66 MG/DL (74-106) L 80 MG/DL (74-106) Calcium Level 9.0 MG/DL (8.5-10.1) 9.1 MG/DL (8.5-10.1) Total Bilirubin 0.6 MG/DL (0.2-1.0) 0.9 MG/DL (0.2-1.0) Aspartate Amino Transf (AST/SGOT) 26 U/L (15-37) 25 U/L (15-37) Alanine Aminotransferase (ALT/SGPT) 29 U/L (12-78) 32 U/L (12-78) Alkaline Phosphatase 88 U/L (46-116) 78 U/L (46-116) Troponin I 0.010 ng/mL (0.000-0.056) Total Protein 7.4 G/DL (6.4-8.2) 7.2 G/DL (6.4-8.2) Albumin 3.8 G/DL (3.4-5.0) 3.7 G/DL (3.4-5.0) Globulin 3.6 g/dL 3.5 g/dL Albumin/Globulin Ratio 1.1 (1.0-2.7) 1.1 (1.0-2.7) Triglycerides Level 100 MG/DL (30-150) 58 MG/DL (30-150) Cholesterol Level 184 MG/DL (< 200) 180 MG/DL (< 200) LDL Cholesterol 106 mg/dL (<100) H 104 mg/dL (<100) H HDL Cholesterol 71 MG/DL (40-60) H 70 MG/DL (40-60) H Cholesterol/HDL Ratio 2.6 (3.3-4.4) L 2.6 (3.3-4.4) L Ammonia 15 umol/L (11-32) Thyroid Stimulating Hormone (TSH) 0.966 uiU/mL (0.358-3.740) Height (Feet): 5 Height (Inches): 6.00 Weight (Pounds): 175 Medications Current Medications Medications (Trade) Dose Ordered Sig/Caroline Route PRN Reason Start Time Stop Time Status Last Admin Dose Admin Acetaminophen (Tylenol) 650 mg Q4H PRN ORAL fever 07/14/18 17:30 08/13/18 17:29 Al Hydroxide/Mg Hydroxide (Mylanta II) 30 ml Q6H PRN ORAL dyspepsia 07/14/18 17:30 08/13/18 17:29 Albuterol/ Ipratropium (Albuterol/ Ipratropium) 3 ml Q4H PRN HHN Shortness of Breath 07/14/18 17:30 07/19/18 17:29 Amlodipine Besylate (Norvasc) 10 mg DAILY ORAL 07/15/18 09:00 08/14/18 08:59 07/15/18 08:12 Clonidine HCl (Catapres Tab) 0.1 mg Q4H PRN ORAL For High Blood Pressure 07/14/18 17:30 08/13/18 17:29 Dextrose (Dextrose 50%) 25 ml Q30M PRN IV Hypoglycemia 07/14/18 17:30 08/13/18 17:29 Dextrose (Dextrose 50%) 50 ml Q30M PRN IV Hypoglycemia 07/14/18 17:30 08/13/18 17:29 Dextrose/Sodium Chloride 1,000 ml @ 50 mls/hr Q20H IV 07/14/18 17:17 08/13/18 17:16 07/14/18 17:42 Heparin Sodium (Porcine) (Heparin 5000 units/ml) 5,000 units EVERY 12 HOURS SUBQ 07/14/18 21:00 08/13/18 20:59 07/15/18 08:18 Lorazepam (Ativan 2mg/ml 1ml) 0.5 mg Q4H PRN IV For Anxiety 07/14/18 17:30 07/21/18 17:29 Metoprolol Tartrate (Lopressor) 50 mg EVERY 12 HOURS ORAL 07/14/18 21:00 08/13/18 20:59 07/15/18 08:12 Morphine Sulfate (Morphine Sulfate) 1 mg Q4H PRN IVP For Pain 7-10 07/14/18 17:30 07/21/18 17:29 Nitroglycerin (Ntg) 0.4 mg Q5M X 3 DOSES PRN SL Prn Chest Pain 07/14/18 17:30 08/13/18 17:29 Ondansetron HCl (Zofran) 4 mg Q6H PRN IVP Nausea & Vomiting 07/14/18 17:30 08/13/18 17:29 Polyethylene Glycol (Miralax) 17 gm HSPRN PRN ORAL Constipation 07/14/18 17:30 08/13/18 17:29 Temazepam (Restoril) 15 mg HSPRN PRN ORAL Insomnia 07/14/18 17:30 07/21/18 17:29 Assessment/Plan Problem List: (1) CVA (cerebral vascular accident) ICD Codes: I63.9 - Cerebral infarction, unspecified SNOMED: 219905466 (2) Hypertensive crisis ICD Codes: I16.9 - Hypertensive crisis, unspecified SNOMED: 611825931 (3) History of nephrectomy, unilateral ICD Codes: Z90.5 - Acquired absence of kidney SNOMED: 24037118641899 (4) Diabetes type 2, uncontrolled ICD Codes: E11.65 - Type 2 diabetes mellitus with hyperglycemia SNOMED: 546641882 Assessment/Plan neuro evaluation monitor BP increase hydralazine to 100 TID, on max dose of amlodipine already cardiology evaluation sliding scale diabetic diet dvt prophylaxis. Page Dumont MD Jul 15, 2018 12:31
[2018-07-15] MEDS ORDERED: HydrALAZINE 50mg tab ORAL SCH (14:00)
--- NOTE | 2018-07-15 14:03 | NUR ---
[facility] PT NOTE [place] PATIENT CURRENTLY SUPERVISION FOR ALL MOBILITY. PATIENT SYMMETRICAL STRENGTH BUE BLE, NO COMPLAINTS OF PAIN OR DIZZINESS. SYMPTOMS A COUPLE DAYS AGO HAVE RESOLVED. PATIENT DEFERRED NEED FOR PHYSICAL THERAPY SKILLED AT THIS TIME. RECOMMEND NEURO CONSULT FOR WORK UP OUTPATIENT. [place] PT ORDER. HATTIE SHAH PT DPT Addendum: 07/15/18 at 1403 by HATTIE SHAH PT Amended: Links added.
--- NOTE | 2018-07-15 15:03 | Diagnostic Imaging Report ---
Indication: Left-sided facial numbness tingling. Dizziness. Technique: The head was imaged in a 1.5 Dalila magnet. Sequences obtained include sagittal and axial T1 FLAIR, axial T2 fast spin echo with fat saturation, axial T2 FLAIR, diffusion and ADC map. Comparison: None There is a area of old cortical infarction in the right posterior parietal lobe characterized by some volume loss involving the involved cortices which shows some T1 hyperintensity likely laminar necrosis. Subcortical low T1 signal/high T2 signal indicative of gliosis. Some of this could represent mild residual edema. T2 shine through noted on diffusion-weighted sequence. There is no evidence of diffusion restriction to suggest acute CVA at this time. Patchy white matter foci of T2 hyperintense signal noted bilaterally mainly in a periventricular distribution consistent with chronic small vessel disease. The corpus callosum and sella appear normal. Bone marrow signal is normal. There is no mass effect or edema identified. Basal cisterns and ventricles appear normal. Appropriate flow voids demonstrated in the major intracranial arteries. 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 Chronic small vessel disease involving white matter tracts mainly periventricular in location. [facility] has communicated the preliminary results to the Emergency Department. Their findings are largely concordant with this report.
--- NOTE | 2018-07-15 15:06 | Internal Med Progress Note ---
Subjective Physician Name Kole Gillis Attending Physician Kole Gillis MD Current Medications Medications (Trade) Dose Ordered Sig/Caroline Route PRN Reason Start Time Stop Time Status Last Admin Dose Admin Acetaminophen (Tylenol) 650 mg Q4H PRN ORAL fever 07/14/18 17:30 08/13/18 17:29 Al Hydroxide/Mg Hydroxide (Mylanta II) 30 ml Q6H PRN ORAL dyspepsia 07/14/18 17:30 08/13/18 17:29 Albuterol/ Ipratropium (Albuterol/ Ipratropium) 3 ml Q4H PRN HHN Shortness of Breath 07/14/18 17:30 07/19/18 17:29 Amlodipine Besylate (Norvasc) 10 mg DAILY ORAL 07/15/18 09:00 08/14/18 08:59 07/15/18 08:12 Clonidine HCl (Catapres Tab) 0.1 mg Q4H PRN ORAL For High Blood Pressure 07/14/18 17:30 08/13/18 17:29 Dextrose (Dextrose 50%) 25 ml Q30M PRN IV Hypoglycemia 07/14/18 17:30 08/13/18 17:29 Dextrose (Dextrose 50%) 50 ml Q30M PRN IV Hypoglycemia 07/14/18 17:30 08/13/18 17:29 Heparin Sodium (Porcine) (Heparin 5000 units/ml) 5,000 units EVERY 12 HOURS SUBQ 07/14/18 21:00 08/13/18 20:59 07/15/18 08:18 Hydralazine HCl (Apresoline) 100 mg Q8HR ORAL 07/15/18 14:00 08/14/18 13:59 07/15/18 14:05 Lorazepam (Ativan 2mg/ml 1ml) 0.5 mg Q4H PRN IV For Anxiety 07/14/18 17:30 07/21/18 17:29 Metoprolol Tartrate (Lopressor) 50 mg EVERY 12 HOURS ORAL 07/14/18 21:00 08/13/18 20:59 07/15/18 08:12 Nitroglycerin (Ntg) 0.4 mg Q5M X 3 DOSES PRN SL Prn Chest Pain 07/14/18 17:30 08/13/18 17:29 Ondansetron HCl (Zofran) 4 mg Q6H PRN IVP Nausea & Vomiting 07/14/18 17:30 08/13/18 17:29 Polyethylene Glycol (Miralax) 17 gm HSPRN PRN ORAL Constipation 07/14/18 17:30 08/13/18 17:29 Temazepam (Restoril) 15 mg HSPRN PRN ORAL Insomnia 07/14/18 17:30 07/21/18 17:29 Allergies: Coded Allergies: PENICILLINS (Verified Allergy, Severe, SWELLING, 06/28/18) MITCHELL INHIBITORS (Verified Allergy, Unknown, 06/28/18) CODEINE (Verified Allergy, Unknown, GI UPSET,HEADACHE, 06/28/18) DIPHENHYDRAMINE (Verified Allergy, Unknown, 06/28/18) Subjective Patient is awake alert oriented, no acute distress, no nausea, no vomiting, no headache, no chest pain, no loss of consciousness. Patient is ambulatory in the room without any focal deficit. Objective Last Vital Signs Date Time Temp Pulse Resp B/P (MAP) Pulse Ox O2 Delivery O2 Flow Rate FiO2 07/15/18 14:05 175/69 07/15/18 12:00 59 07/15/18 12:00 97.0 18 99 07/15/18 09:00 Room Air 07/15/18 07:40 21 Laboratory Tests Test 07/15/18 06:46 White Blood Count 4.2 K/UL (4.8-10.8) L Red Blood Count 4.42 M/UL (4.20-5.40) Hemoglobin 13.3 G/DL (12.0-16.0) Hematocrit 40.6 % (37.0-47.0) Mean Corpuscular Volume 92 FL (80-99) Mean Corpuscular Hemoglobin 30.2 PG (27.0-31.0) Mean Corpuscular Hemoglobin Concent 32.9 G/DL (32.0-36.0) Red Cell Distribution Width 12.3 % (11.6-14.8) Platelet Count 259 K/UL (150-450) Mean Platelet Volume 6.6 FL (6.5-10.1) Neutrophils (%) (Auto) 47.6 % (45.0-75.0) Lymphocytes (%) (Auto) 38.9 % (20.0-45.0) Monocytes (%) (Auto) 7.7 % (1.0-10.0) Eosinophils (%) (Auto) 4.8 % (0.0-3.0) H Basophils (%) (Auto) 1.0 % (0.0-2.0) Prothrombin Time 10.1 SEC (9.30-11.50) Prothromb Time International Ratio 1.0 (0.9-1.1) Activated Partial Thromboplast Time 29 SEC (23-33) Sodium Level 140 MMOL/L (136-145) Potassium Level 3.9 MMOL/L (3.5-5.1) Chloride Level 105 MMOL/L (98-107) Carbon Dioxide Level 27 MMOL/L (21-32) Anion Gap 8 mmol/L (5-15) Blood Urea Nitrogen 25 mg/dL (7-18) H Creatinine 1.0 MG/DL (0.55-1.30) Estimat Glomerular Filtration Rate mL/min (>60) Glucose Level 80 MG/DL (74-106) Calcium Level 9.1 MG/DL (8.5-10.1) Total Bilirubin 0.9 MG/DL (0.2-1.0) Aspartate Amino Transf (AST/SGOT) 25 U/L (15-37) Alanine Aminotransferase (ALT/SGPT) 32 U/L (12-78) Alkaline Phosphatase 78 U/L (46-116) Ammonia 15 umol/L (11-32) Total Protein 7.2 G/DL (6.4-8.2) Albumin 3.7 G/DL (3.4-5.0) Globulin 3.5 g/dL Albumin/Globulin Ratio 1.1 (1.0-2.7) Triglycerides Level 58 MG/DL (30-150) Cholesterol Level 180 MG/DL (< 200) LDL Cholesterol 104 mg/dL (<100) H HDL Cholesterol 70 MG/DL (40-60) H Cholesterol/HDL Ratio 2.6 (3.3-4.4) L Thyroid Stimulating Hormone (TSH) 0.966 uiU/mL (0.358-3.740) Intake and Output 07/14/18 07/15/18 19:00 07:00 Intake Total 50 ml 615 ml Balance 50 ml 615 ml IV Total 50 ml 615 ml # Voids 3 Objective General: No acute distress, awake and alert HEENT: NCAT, sclera anicteric, PERRL, EOMI. Neck: Supple, no significant jugular venous distention, Lungs: Good inspiratory effort, clear to auscultation bilaterally, no Wheeze or Rales. Heart: Regular rate and rhythm, normal S1/S2, no murmurs/gallops Abdomen: soft, nontender, nondistended. Normoactive bowel sounds. / Rectal: Refused and deferred. Extremities: No Cyanosis , clubbing or edema. Neuro: A&O x 3, Able to move all extremities Skin: warm, no rashes or lesions Psych: Normal mood and affect Assessment/Plan Assessment/Plan 1. Acute cerebrovascular accident. 2. Diabetes type 2. 3. Hypertension. 4. Renal cell cancer. TREATMENT: 1. Left acute cerebrovascular accident. A Neurology consultation has been obtained with Dr. Malvin James. An MRI of the brain is pending. We will follow recommendations of Dr. James. The patient has been started empirically on aspirin. 2. Diabetes type 2. The patient has been placed on a NovoLog sliding scale. 3. Hypertension. Continue amlodipine as above. Clonidine has been added p.r.n. for systolic greater than 150 or diastolic greater than 100. 4. History of renal cell cancer, status post resection. Kole Gillis MD Jul 15, 2018 15:06
[2018-07-15 16:00] VITALS: BP 190/75
--- NOTE | 2018-07-15 16:18 | NUR ---
TRANSFER TO FLOOR: Patient transferred to 302-2 via hospital bed. Report given to KAVON Fitzgerald. Inventory check done. No acute distress/SOB noted. Patient denies any pain/discomfort. Endorsed paln of care.
[2018-07-15] MEDS ORDERED: Nitroglycerin Subl 0.4mg tab SL PRN (16:30)
[2018-07-15] MEDS ORDERED: Albuterol/Ipratropium 3ml neb HHN PRN (17:00)
[2018-07-15] MEDS ORDERED: Miralax 17gm pkt ORAL PRN (17:00)
[2018-07-15] MEDS ORDERED: Mylanta II UD 30ml ORAL PRN (17:00)
--- NOTE | 2018-07-15 17:03 | NUR ---
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 Dr Gillis here informed of pt elevated blood pressure at 190/ 75 pulse 65. changed medication orders for her blood pressure medicine at this time. informed that pt did not like the texture of food offered at lunch. Per St recommendation gave orders for pt to have mechanical soft chopped food and thicken fluids. approved to provide pt with regular cardiac diet, and thin fluids. Pt made aware of changes. Educated on importance of cutting food into small portions and chewing food completely. Food Demonstrator also recommended use of a straw, to facilitate control of liquids. Current paln of care will be followed. Pt will continue to be monitored . Call light is in reach
--- NOTE | 2018-07-15 17:03 | Consultation ---
Consult Note Consult Note NEUROLOGY CONSULTATION: Full note dictated #[id number] 72 Y/O, RH, HF with PH of HTN, DM, and a stroke in April 2018 manifested by left facial weakness and elevated BP. A few weeks following the stroke she had another episode of left facial weakness which was again labelled a stroke. Then on 07/14/18 she had an episode of left facial numbness, and she was unable to walk as she felt unsteady on her feet. She works at [employer] and had her coworker walk her to the ER. A CT and MRI of the brain revealed an old right parietal infarct. Her BP was again elevated to 208/98. She feels she is back to normal now. ON EXAM: Mild problems with memory. Left VII central G 5-/5 in left FE and G 4+/5 in left IP Global areflexia. IMPRESSION: 1. Recrudescence of symptoms related to old right parietal infarct vs ictal phenomenon. 2. Neuropathy. 3. Carotid duplex - normal. 4. Uncontrolled BP REC: 1. EEG 2. BP goal <120/80 3. Hb A1c goal <6% 4. LDL goal <70 5. PT/OT Malvin James M.D., M.S.P.H. Malvin James MD Jul 15, 2018 17:03
[2018-07-15] MEDS ORDERED: LORazepam Inj 2mg/ml 1ml IV PRN (17:30)
[2018-07-15] MEDS: Aspirin Baby 81mg ORAL SCH (18:13)
--- NOTE | 2018-07-15 18:25 | NUR ---
NURSE NOTES: Pt tolerated meal and fluids well. Denies any further pain. Denies dizziness. Pt able to verbalize known needs. Educated on importance of dangling feet prior to bathroom needs. Verbalized understanding. Educated on importance of not getting out of bed unassisted if dizziness is present. Call light is in reach. Surrounding area clear free from clutter. Overhead light on, bed in lowest position.
--- NOTE | 2018-07-15 19:39 | Cardiology Progress Note ---
Assessment/Plan Assessment/Plan dc coreg labetlol 100 mg bid increase as need adn and hr allow increase hydralazine cannot take acei / arb due to angioneurotic ecdme has been intoelrant of clinidine will need 2nday causes ofhtn rulled out will need sleep study will need renal artery study i have asked to make suer has fu to adjust meds as out pt [phone] Objective Last 24 Hour Vital Signs Date Time Temp Pulse Resp B/P (MAP) Pulse Ox O2 Delivery O2 Flow Rate FiO2 07/15/18 17:29 190/75 07/15/18 16:00 97.5 65 18 190/75 (113) 97 07/15/18 14:05 175/69 07/15/18 12:00 59 07/15/18 12:00 97.0 57 18 173/77 (109) 99 07/15/18 09:00 Room Air 07/15/18 08:12 66 195/82 07/15/18 08:12 66 195/82 07/15/18 08:00 96.9 66 18 195/82 (119) 98 07/15/18 08:00 68 07/15/18 07:40 67 17 Room Air 21 07/15/18 04:00 96.6 72 18 155/78 (103) 99 07/15/18 04:00 69 07/15/18 00:00 72 07/15/18 00:00 97.4 71 18 160/73 (102) 99 07/14/18 21:09 75 169/69 07/14/18 21:00 Room Air 07/14/18 21:00 73 18 Room Air 21 07/14/18 20:00 71 07/14/18 20:00 97.7 75 18 169/69 (102) 97 Intake and Output 07/14/18 07/15/18 19:00 07:00 Intake Total 50 ml 615 ml Balance 50 ml 615 ml IV Total 50 ml 615 ml # Voids 3 Laboratory Tests Test 07/15/18 06:46 White Blood Count 4.2 K/UL (4.8-10.8) L Red Blood Count 4.42 M/UL (4.20-5.40) Hemoglobin 13.3 G/DL (12.0-16.0) Hematocrit 40.6 % (37.0-47.0) Mean Corpuscular Volume 92 FL (80-99) Mean Corpuscular Hemoglobin 30.2 PG (27.0-31.0) Mean Corpuscular Hemoglobin Concent 32.9 G/DL (32.0-36.0) Red Cell Distribution Width 12.3 % (11.6-14.8) Platelet Count 259 K/UL (150-450) Mean Platelet Volume 6.6 FL (6.5-10.1) Neutrophils (%) (Auto) 47.6 % (45.0-75.0) Lymphocytes (%) (Auto) 38.9 % (20.0-45.0) Monocytes (%) (Auto) 7.7 % (1.0-10.0) Eosinophils (%) (Auto) 4.8 % (0.0-3.0) H Basophils (%) (Auto) 1.0 % (0.0-2.0) Erythrocyte Sedimentation Rate 12 MM/HR (0-30) Prothrombin Time 10.1 SEC (9.30-11.50) Prothromb Time International Ratio 1.0 (0.9-1.1) Activated Partial Thromboplast Time 29 SEC (23-33) Sodium Level 140 MMOL/L (136-145) Potassium Level 3.9 MMOL/L (3.5-5.1) Chloride Level 105 MMOL/L (98-107) Carbon Dioxide Level 27 MMOL/L (21-32) Anion Gap 8 mmol/L (5-15) Blood Urea Nitrogen 25 mg/dL (7-18) H Creatinine 1.0 MG/DL (0.55-1.30) Estimat Glomerular Filtration Rate mL/min (>60) Glucose Level 80 MG/DL (74-106) Hemoglobin A1c 7.5 % (4.3-6.0) H Calcium Level 9.1 MG/DL (8.5-10.1) Total Bilirubin 0.9 MG/DL (0.2-1.0) Aspartate Amino Transf (AST/SGOT) 25 U/L (15-37) Alanine Aminotransferase (ALT/SGPT) 32 U/L (12-78) Alkaline Phosphatase 78 U/L (46-116) Ammonia 15 umol/L (11-32) Total Protein 7.2 G/DL (6.4-8.2) Albumin 3.7 G/DL (3.4-5.0) Globulin 3.5 g/dL Albumin/Globulin Ratio 1.1 (1.0-2.7) Triglycerides Level 58 MG/DL (30-150) Cholesterol Level 180 MG/DL (< 200) LDL Cholesterol 104 mg/dL (<100) H HDL Cholesterol 70 MG/DL (40-60) H Cholesterol/HDL Ratio 2.6 (3.3-4.4) L Vitamin B12 Level 216 PG/ML (193-986) Folate 16.8 NG/ML (8.6-58.9) Thyroid Stimulating Hormone (TSH) 0.966 uiU/mL (0.358-3.740) Stevo Funes MD Jul 15, 2018 19:39
[2018-07-15 20:00] VITALS: BP 161/61
--- NOTE | 2018-07-15 20:15 | Consultation ---
DATE OF CONSULTATION: 07/15/2018 NEUROLOGY CONSULTATION CONSULTING PHYSICIAN: Malvin James M.D. REQUESTING PHYSICIANS: Kole Gillis M.D. & Marcos Kelly M.D. HISTORY: Ms. Michelle Araiza is a 72-year-old, right-handed, lady, who does have past history of hypertension, diabetes mellitus, and a stroke in April 2018 manifested by left facial weakness and associated with a significantly elevated blood pressure. The left facial weakness that she had in April rapidly resolved. A few weeks following the first stroke, she had another episode of left facial weakness and was again told that she had had another stroke. Her blood pressure was again elevated when she had the second event. She then did well until 07/14/2018, when she was at work and she noticed that her left face was feeling numb. She tried to get up and walk, but she felt unsteady on her feet. She is uncertain as to why this unsteadiness occurred, however, she was helped by a friend to the [facility] Emergency Room and evaluated there. It was felt that she was most probably having a new cerebrovascular event. A CT scan of the brain and an MRI scan of the brain were done and revealed old right parietal infarct. Her blood pressure was again elevated to 208/98 mmHg. Since then, she has been treated for her elevated blood pressure and she has improved significantly, and at this point in time, she is completely asymptomatic. She denies any weakness on one side or the other, numbness on one side or the other, problems with speech, problems with language, problems with vision, or problems with her memory. PAST HISTORY: Significant for hypertension for numerous years, diabetes mellitus for numerous years, cerebrovascular events in April 2018, May 2018, and July 14, 2018. FAMILY HISTORY: Nothing significant as per the patient with no family history of stroke or other neurological illness. PERSONAL HISTORY: Home: She lives at home and her son lives with her. 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 Habits: She used to enjoy drinking whiskey in the past, but has stopped drinking for numerous years. She denies use of tobacco or illicit drugs. PRESENT MEDICATIONS: Amlodipine, hydralazine, heparin for DVT prophylaxis, metoprolol, Tylenol p.r.n., Mylanta p.r.n., clonidine p.r.n., DuoNeb inhaler p.r.n., Ativan p.r.n., Zofran p.r.n., MiraLAX p.r.n., Restoril p.r.n., and nitroglycerin p.r.n. PHYSICAL EXAMINATION: GENERAL: She is a well-developed, well-nourished, slightly obese lady, lying in bed, in no acute distress. VITAL SIGNS: Pulse 59/minute, blood pressure 175/69 mmHg, respirations 18/minute, and temperature 97 degrees Fahrenheit. HEAD: Normocephalic and atraumatic. EENT: Benign. NECK: No neck rigidity was observed. NEUROLOGICAL EXAMINATION: MENTAL STATUS EXAMINATION: She was awake and alert. She was oriented to person, place, and time. She was able to recall 3/3 words immediately after 1 minute and after 3 minutes on the second trial. She was able to remember presidents, Trump and Obama, but could not remember presidents prior to that. Her mathematical skills were fairly good. Her visuospatial function was preserved. SPEECH: She had no dysarthria. LANGUAGE: She had no aphasia. CRANIAL NERVE EXAMINATION: II: The visual soto were intact on confrontation testing. III, IV & : External ocular movements were full and the pupils 3 mm in diameter, equal, round, regular, and reactive to light. V: She had normal facial sensations, and the temporales, masseters, and pterygoids functioned normally. VII: She had a mild left VII central facial paresis. VIII: She was able to hear well bilaterally and had no nystagmus. IX: The palate moved symmetrically on phonation. X: She had no hoarseness of voice. XI: The sternocleidomastoids and trapezii function normally. XII: The tongue was in the midline without any fasciculations or atrophy. MOTOR SYSTEM: The tone was normal in all four extremities. Examination of muscle mass revealed no focal wasting. Examination of power revealed G 5/5 power except for G 5-/5 power in the left finger extensors and G 4+/5 power in the left iliopsoas. SENSORY EXAMINATION: She had intact sensations to pinprick, light touch, and graphesthesia. COORDINATION: She performed well on [id number]-kvkd and [id number] testing. On Romberg test, she swayed, but did not fall to one side or the other. REFLEXES: 0 at the biceps, triceps,brachioradialis, knees, and ankles. The plantar responses were flexor bilaterally. STANCE: She had a minimally wide-based, but stable stance. GAIT: She walked with a minimally wide-based, but stable gait. DIAGNOSTIC IMPRESSION: 1. Ms. Michelle Araiza is a 72-year-old, right-handed, lady, with past history of hypertension, diabetes mellitus, and a stroke in April 2018 manifested by left facial weakness. She then had another event in May 2018 where she again had left facial weakness and this was labeled a stroke. She then did well until July 14, 2018, when she had an episode of left facial numbness. This was associated with inability to walk because of a sensation of being unsteady on her feet. Her symptoms have all resolved at this point in time. It should be noted that all these episodes were associated with her blood pressure being elevated to close to 200 mmHg systolic. 2. On neurological examination, at this time, she does have mild problems with recent and remote memory, a left VII central facial paresis, left iliopsoas greater than finger extensor weakness, and globally absent deep tendon reflexes. In addition, she has a minimally wide-based stance and gait. 3. The CT scan of the brain without contrast reveals an old right parietal infarct. 4. An MRI scan of the brain also reveals an old right parietal infarct. 5. Her latest laboratory data revealed relatively normal CBC, a chemistry panel with BUN elevated to 25, lipid panel with total cholesterol of 180 with an LDL of 104 and HDL of 70, TSH that was normal at 0.96, an INR that was normal at 1.0 with a PTT of 29, and a urinalysis which revealed 2+ leukocyte esterase, 2-4 red blood cells, and 5-10 white blood cells per high-power field. 6. Her carotid duplex scan is normal. 7. The patient's history, neurological examination, laboratory data, and imaging studies are most compatible with recrudescence of symptoms related to an old right parietal infarct versus less likely an ictal phenomenon emanating from an area of old infarct. 8. The patient also does have findings compatible with a neuropathic process. 9. The patient's blood pressure is still poorly controlled. RECOMMENDATIONS: 1. Agree with management thus far. 2. An EEG will be ordered to evaluate the patient for interictal or ictal phenomena. 3. Her blood pressure should be brought down into physiological range with goal being <120/80 mmHg at all times. 4. The patient's hemoglobin A1c goal should be <6%. 5. The patient's LDL goal should be < 70. 6. The patient should be mobilized with the help of physical and occupational therapy. Thank you for entrusting me with the care of Ms Araiza. I shall follow her with you. Malvin James M.D., M.S.P.H. DR: Yara JOB#: [id number]
--- NOTE | 2018-07-15 20:34 | NUR ---
HAND-OFF: Report given to Prieto JACOBSON.
[2018-07-15] MEDS ORDERED: Carvedilol 6.25mg Tab ORAL SCH (21:00)
[2018-07-15] MEDS ORDERED: Metoprolol Tartrate 50mg tab ORAL SCH (21:00)
[2018-07-15] MEDS: HydrALAZINE 50mg tab ORAL SCH (22:05)
[2018-07-16] VITALS: BP 159/64
--- NOTE | 2018-07-16 00:15 | Consultation ---
DATE OF CONSULTATION: 07/15/2018 CARDIOLOGY CONSULTATION CONSULTING PHYSICIAN: Stevo Funes M.D. REFERRING PHYSICIAN: Kole Gillis M.D. REASON FOR REFERRAL: Hypertension. HISTORY OF PRESENT ILLNESS: This is a 72-year-old female who I am familiar with from prior evaluation from the hospital here. Last time I saw her was on 05/04/2018. At that time, it was noted that blood pressure was poorly controlled and it was thought that she should have renal artery duplex to make sure that there is no evidence of renal artery stenosis as that causes persistently elevated blood pressure and to consider outpatient workup of secondary other causes of hypertension. We did start on some labetalol at that time and she did not like to take clonidine because of drowsiness and she was not feeling good and she was having headaches before. Her hydralazine was increased to 3 times a day and she is not able to take MITCHELL inhibitors because of tongue swelling, which may contribute to use of ARBs. Nevertheless, she comes in with some left-sided numbness and inability to talk. This lasted approximately 5 minutes. The patient was evaluated and seen by Dr. James and is concerned about the possibility of . She really does not have any chest pain or shortness of breath. No PND. No orthopnea. No palpitation. No dizziness or lightheadedness on standing. PAST MEDICAL HISTORY: Extensive and includes history of diabetes, hypertension, renal cell carcinoma that was resected, and history of arthritis. ALLERGIES: She is allergic to penicillin, Benadryl, codeine, MITCHELL inhibitors secondary to tongue swelling, and clonidine, he did not have an allergic reaction, but later have a headache. REVIEW OF SYSTEMS: GASTROINTESTINAL: Negative. GENITOURINARY: Negative. PULMONARY: Negative. CONSTITUTIONAL: Negative. NEUROLOGIC: Otherwise negative. PHYSICAL EXAMINATION: GENERAL: Shows to be obese female, in no respiratory distress. HEENT: Unremarkable. NECK: Supple. No jugular venous distention. No abdominojugular reflux noted. LUNGS: Clear to auscultation and percussion. CARDIAC: S1 is normal. S2 is normal. Regular rate and rhythm. No heaves, thrills, or gallops noted. ABDOMEN: Soft and nontender. Positive bowel sounds. EXTREMITIES: There is no edema. No clubbing or cyanosis. NEUROLOGIC: She is awake, alert, responsive, and she seems to move all four extremities. LABORATORY AND DIAGNOSTIC DATA: White count of 4.3, hemoglobin 13.3, and platelet count 259,000. Sodium is 140, potassium 3.9, chloride 105, bicarb 27, BUN 25, creatinine 1.0, and glucose of 80. A1c of 7.5 and calcium is 9.0. Liver function tests are normal. Album is 3.7. Total cholesterol is 110 with LDL of 104 with HDL of 70. Vitamin B12 of 216 and a folic acid of 16.8. TSH is 0.966. She did have an MRI of the brain and that MRI showed that she did have a old infarct in the right posterior parietal lobe with laminar necrosis and volume loss, and small-vessel ischemic changes being noted. Her EKG performed shows normal sinus rhythm, normal QRS axis, no ST-T wave abnormalities. Venous duplex is negative. Carotid duplex shows mild plaques bilaterally. Echocardiogram shows normal ejection fraction. ASSESSMENT AND PLAN: 1. Hypertension, poorly controlled. 2. History of CVA. 3. Renal cell carcinoma, status post resection. 4. Medication intolerance including MITCHELL inhibitors, with angioneurotic edema and clonidine with headaches and intolerance. 5. Seizure versus TIA. This patient was seen in cardiac consultation. The patient needs to be treated with a combination of medications. She is on amlodipine 10 mg, maximum dose, so she cannot take MITCHELL inhibitors or ARBs. I previously put her on some labetalol, but that has been since discontinued. The patient has been tried on carvedilol and would much rather she be treated with labetalol she is capable of taking. The hydralazine should be increased as it was already at 100 mg every 8 hours. Amlodipine to be continued. She should be on some diuretics as well for her blood pressure control maintenance. She should be considered for secondary cause of hypertension including a sleep study as outpatient as well as metanephrines as well as renal artery duplex study. Stevo Funes M.D. DR: ALEXANDRIA JOB#: [id number] CC:
[2018-07-16 04:00] VITALS: BP 175/73
[2018-07-16] MEDS: HydrALAZINE 50mg tab ORAL SCH ×3 (05:50→22:16)
--- NOTE | 2018-07-16 07:34 | NUR ---
NURSE NOTES: Received pt from Prieto Flood. pt was resting comfortably, no pain, call light w/in reach.
--- NOTE | 2018-07-16 07:55 | Pulmonology Progress Note ---
Assessment/Plan Assessment/Plan ASSESSMENT cerebrovascular disease with hx of old CVA paresthesia, probably TIA , HTN urgency DM Hyperlipidemia Hx of renal Ca, s/p R nephrectomy PLAN OF CARE Med Surg floor Neuro follows MRI of the brain revealed old infarct right posterior parietal lobe with laminar necrosis and volume loss; chronic small vessel disease, involving white matter tracts noted continue antiplatelet therapy with ASA lipid panel with elevated LDL, start on statin cardiac low-fat low-cholesterol diet , discussed with pt in detail BP management with multiply regimen of anti-HTN, including BB, CCB, hydralazine , HcTz and titrate further as needed to keep BP under control cardio follows, supplemental O2 prn to keep pulse ox above 90% ; pulmonary toilet prn DVT prophylaxis neuro follows EEG pending BS management with SSI, stable, hemoglobin A1c 7.5 swallow eval noted diet texture as per ST recommendations with strict aspiration precautions PT to mobilize and work with pt bowel regimen supportive care pain management prn monitor renal parameters, lytes, correct as needed, s/p IVF per cardio consider other causes of poorly controlled HTN, with workup as outpt when BP stabilized consider sleep study as well case discussed and evaluated by supervising physician Subjective Allergies: Coded Allergies: PENICILLINS (Verified Allergy, Severe, SWELLING, 06/28/18) MITCHELL INHIBITORS (Verified Allergy, Unknown, 06/28/18) CODEINE (Verified Allergy, Unknown, GI UPSET,HEADACHE, 06/28/18) DIPHENHYDRAMINE (Verified Allergy, Unknown, 06/28/18) All Systems: reviewed and negative except above - deneis ches pain, SOB, palpitations pusle ox stable on ERA no new weakness, no diziness Subjective Denies chest pain, shortness of breath Pulse ox stable on room air No weakness EEG pending Objective Last 24 Hour Vital Signs Date Time Temp Pulse Resp B/P (MAP) Pulse Ox O2 Delivery O2 Flow Rate FiO2 07/16/18 05:50 175/73 07/16/18 04:00 97.3 67 18 175/73 (107) 97 07/16/18 00:00 98.0 73 18 159/64 (95) 96 07/15/18 22:05 161/68 07/15/18 21:00 Room Air 07/15/18 20:41 66 161/68 07/15/18 20:10 65 18 Room Air 21 07/15/18 20:00 98.2 69 18 161/61 (94) 97 07/15/18 17:29 190/75 07/15/18 16:00 97.5 65 18 190/75 (113) 97 07/15/18 14:05 175/69 07/15/18 12:00 59 07/15/18 12:00 97.0 57 18 173/77 (109) 99 07/15/18 09:00 Room Air 07/15/18 08:12 66 195/82 07/15/18 08:12 66 195/82 07/15/18 08:00 96.9 66 18 195/82 (119) 98 07/15/18 08:00 68 Intake and Output 07/15/18 07/16/18 18:59 06:59 Intake Total 830 ml Balance 830 ml Intake Oral 480 ml IV Total 350 ml # Voids 2 General Appearance: no acute distress HEENT: normocephalic, atraumatic, anicteric, mucous membranes moist Respiratory/Chest: chest wall non-tender, lungs clear, no respiratory distress , no accessory muscle use Cardiovascular: normal peripheral pulses, normal rate, no JVD Abdomen: normal bowel sounds, soft, non tender, non distended Extremities: no edema 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, no motor/sensory deficits, alert, oriented x 3, responsive, other - motor strengh 5/5 BUE and BLE, sensory intact Musculoskeletal: normal muscle bulk Laboratory Tests 07/15/18 21:05: Vitamin D 25-Hydroxy [Pending], 25-Hydroxy Vitamin D2 [Pending], 25-Hydroxy Vitamin D3 [Pending], Rapid Plasma Reagin [Pending] Current Medications Medications (Trade) Dose Ordered Sig/Caroline Route PRN Reason Start Time Stop Time Status Last Admin Dose Admin Acetaminophen (Tylenol) 650 mg Q4H PRN ORAL fever 07/15/18 17:30 08/13/18 17:29 07/15/18 17:32 Al Hydroxide/Mg Hydroxide (Mylanta II) 30 ml Q6H PRN ORAL dyspepsia 07/15/18 17:00 08/13/18 16:59 Albuterol/ Ipratropium (Albuterol/ Ipratropium) 3 ml Q4H PRN HHN Shortness of Breath 07/15/18 17:00 07/19/18 16:59 Amlodipine Besylate (Norvasc) 10 mg DAILY ORAL 07/16/18 09:00 08/14/18 08:59 Aspirin (ASA) 81 mg DAILY ORAL 07/15/18 18:00 08/14/18 17:59 07/15/18 18:13 Clonidine HCl (Catapres Tab) 0.1 mg Q4H PRN ORAL For High Blood Pressure 07/15/18 17:00 08/13/18 16:59 07/15/18 17:29 Dextrose (Dextrose 50%) 25 ml Q30M PRN IV Hypoglycemia 07/15/18 16:30 08/13/18 17:29 Dextrose (Dextrose 50%) 50 ml Q30M PRN IV Hypoglycemia 07/15/18 16:30 08/13/18 17:29 Heparin Sodium (Porcine) (Heparin 5000 units/ml) 5,000 units EVERY 12 HOURS SUBQ 07/15/18 21:00 08/13/18 20:59 07/15/18 20:42 Hydralazine HCl (Apresoline) 100 mg Q8HR ORAL 07/15/18 22:00 08/14/18 13:59 07/16/18 05:50 Hydrochlorothiazide (Hydrodiuril) 12.5 mg DAILY ORAL 07/16/18 09:00 08/15/18 08:59 Labetalol HCl (Normodyne) 100 mg Q12HR ORAL 07/15/18 21:00 08/14/18 20:59 07/15/18 20:41 Lorazepam (Ativan 2mg/ml 1ml) 0.5 mg Q4H PRN IV For Anxiety 07/15/18 17:30 07/21/18 17:29 Nitroglycerin (Ntg) 0.4 mg Q5M X 3 DOSES PRN SL Prn Chest Pain 07/15/18 16:30 08/13/18 17:29 Ondansetron HCl (Zofran) 4 mg Q6H PRN IVP Nausea & Vomiting 07/15/18 17:00 08/13/18 16:59 Polyethylene Glycol (Miralax) 17 gm HSPRN PRN ORAL Constipation 07/15/18 17:00 08/13/18 16:59 Temazepam (Restoril) 15 mg HSPRN PRN ORAL Insomnia 07/15/18 17:30 07/21/18 17:29 Regla Ramey NP Jul 16, 2018 07:55
[2018-07-16 08:00] VITALS: BP 160/59
[2018-07-16] MEDS: hydroCHLOROthiazide 12.5mg TAB ORAL SCH (08:24)
[2018-07-16] MEDS: Aspirin Baby 81mg ORAL SCH (08:24)
[2018-07-16] MEDS: Heparin 5000 units/ml inj SUBQ SCH ×2 (08:27→20:27)
[2018-07-16 12:00] VITALS: BP 149/61
[2018-07-16] MEDS: NovoLOG Insulin Flexpen SUBQ SCH ×3 (12:49→20:28)
--- NOTE | 2018-07-16 14:57 | Neurology Progress Note ---
Interim History Interim History Interim History Ms. Araiza feels better. She continues to be free of all neurologic symptoms. She has had no further episoded of left facial weakness or numbness. She denies any new neurologic symptoms. She specifically denies any weakness, numbness, problems with speech, problems with language, problems with vision, or problems with memory. Review of Systems Neuro Review of Systems Benign. Objective Physical Exam Last Vital Signs Date Time Temp Pulse Resp B/P (MAP) Pulse Ox O2 Delivery O2 Flow Rate FiO2 07/16/18 14:11 146/68 07/16/18 12:00 97.7 71 18 98 07/16/18 07:58 Room Air 07/16/18 07:05 21 Laboratory Tests Test 07/15/18 21:05 Vitamin D 25-Hydroxy Pending 25-Hydroxy Vitamin D2 Pending 25-Hydroxy Vitamin D3 Pending Rapid Plasma Reagin Pending Neurologic Exam Objective PHYSICAL EXAMINATION: GENERAL: She is a well-developed, well-nourished, slightly obese lady , lying in bed, in no acute distress. HEAD: Normocephalic and atraumatic. EENT: Benign. NECK: No neck rigidity was observed. NEUROLOGICAL EXAMINATION: MENTAL STATUS EXAMINATION: She was awake and alert. She was oriented to person, place, and time. She was able to recall 3/3 words immediately after 1 minute and after 3 minutes on the second trial. She was able to remember presidents, Trump and Obama, but could not remember presidents prior to that. Her mathematical skills were fairly good. Her visuospatial function was preserved. SPEECH: She had no dysarthria. LANGUAGE: She had no aphasia. CRANIAL NERVE EXAMINATION: II: The visual soto were intact on confrontation testing. III, IV & : External ocular movements were full and the pupils 3 mm in diameter, equal, round, regular, and reactive to light. V: She had normal facial sensations, and the temporales, masseters, and pterygoids functioned normally. VII: She had a mild left VII central facial paresis. VIII: She was able to hear well bilaterally and had no nystagmus. IX: The palate moved symmetrically on phonation. X: She had no hoarseness of voice. XI: The sternocleidomastoids and trapezii function normally. XII: The tongue was in the midline without any fasciculations or atrophy. MOTOR SYSTEM: The tone was normal in all four extremities. Examination of muscle mass revealed no focal wasting. Examination of power revealed G 5/5 power. SENSORY EXAMINATION: She had intact sensations to pinprick, light touch, and graphesthesia. COORDINATION: She performed well on [id number]-jn-vino and vgfv-vl-pndm testing. On Romberg test, she swayed, but did not fall to one side or the other. REFLEXES: 0 at the biceps, triceps,brachioradialis, knees, and ankles. The plantar responses were flexor bilaterally. STANCE: She had a minimally wide-based, but stable stance. GAIT: She walked with a minimally wide-based, but stable gait. Impression/Recommendations Diagnostic Impression 1. Ms. Michelle Araiza is a 72-year-old, right-handed, lady, with past history of hypertension, diabetes mellitus, and a stroke in April 2018 manifested by left facial weakness. She then had another event in May 2018 where she again had left facial weakness and this was labeled a stroke. She then did well until July 14, 2018, when she had an episode of left facial numbness. This was associated with inability to walk because of a sensation of being unsteady on her feet. Her symptoms resolved rapidly. It should be noted that all these episodes were associated with her blood pressure being elevated to close to 200 mmHg systolic. 2. She feels better. She continues to be free of all neurologic symptoms. She has had no further episoded of left facial weakness or numbness. She denies any new neurologic symptoms. 3. On neurological examination, at this time, she does have mild problems with recent and remote memory and a left VII central facial paresis. The left paresis has resolved completely in the upper and lower extremities. She continues to have globally absent deep tendon reflexes. In addition, she has a minimally wide-based stance and gait. 4. The CT scan of the brain without contrast reveals an old right parietal infarct. 5. An MRI scan of the brain also reveals an old right parietal infarct. 6. Her latest laboratory data on my initial evaluation revealed relatively a normal CBC, a chemistry panel with BUN elevated to 25, lipid panel with total cholesterol of 180 with an LDL of 104 and HDL of 70, TSH that was normal at 0.96 , an INR that was normal at 1.0 with a PTT of 29, and a urinalysis which revealed 2+ leukocyte esterase, 2-4 red blood cells, and 5-10 white blood cells per high-power field. 7. Further laboratory tests have revealed that her Hb A1c is elevated at 7.5% and her Vitamin B 12 level is low at 216. 8. Her carotid duplex scan is normal. 9. The EEG done on 07/16/18 was normal in the awake, drowsy and sleep II states. 10. The patient's history, neurological examination, laboratory data, EEG and imaging studies are most compatible with recrudescence of symptoms related to an old right parietal infarct due to hypertension. 11. The patient also does have findings compatible with a neuropathic process - this is most probably due to a B12 deficiency and diabetes mellitus. 12. The patient's blood pressure is still not well controlled. Recommendations 1. Continue present management. 2. Her blood pressure should be brought down into physiological range with goal being <120/80 mmHg at all times. 3. The patient's hemoglobin A1c goal should be <6%. 4. The patient's LDL goal should be < 70. 5. Vitamin B 12 - 1000 mcg SC daily x 3 days and then q month. 6. The patient should be mobilized with the help of physical and occupational therapy. Malvin James M.D., M.S.P.H. Malvin James MD Jul 16, 2018 14:57
[2018-07-16 16:00] VITALS: BP 152/59
--- NOTE | 2018-07-16 17:00 | Electroencephalogram ---
DATE OF PROCEDURE: 07/16/2018 REQUESTING PHYSICIAN: Kole Gillis M.D. DATE OF TRACIN07/16/2018. HISTORY: This EEG was performed on a 72-year-old lady with a history of two episodes of left-sided facial weakness and a recent episode of left-sided facial numbness associated with a right parietal infarct. The purpose of this EEG was to evaluate the patient for ongoing ictal or interictal phenomena as a reason for episodic neurological symptoms. TECHNICAL NOTE: This EEG was performed on a ED01 Acquisition Unit with electrodes placed on the scalp according to the International 10-20 system. Irhvt-rr-[id number] and lsgdo-dv-[id number] montages were used. The EEG was technically satisfactory and was performed in the awake, drowsy, and sleep states. OBSERVATIONS: In the best awake state, the background activity consisted of 9-10 Hz posteriorly predominant, well-developed alpha waveforms, which attenuated on eye opening. Drowsiness was characterized by dissolution of the alpha rhythm and appearance of slow frequencies in the 5-6 Hz theta range. Stage II sleep was characterized by further slowing of the background in the delta and theta range, the presence of vertex waves, and 14-16 Hz sleep spindles. Photic stimulation was performed at various different frequencies and produced a normal driving response. No focal abnormalities or epileptiform discharges were seen. IMPRESSION: Normal awake, drowsy, and stage II sleep EEG. Malvin James M.D., M.S.P.H. DR: CORAL JOB#: [id number] [email or web address]
--- NOTE | 2018-07-16 17:24 | NUR ---
CASE MANAGEMENT: REVIEW SI: CVA T 98.0 HR 73 RR 18 BP 159/64 SAT 96% ROOM AIR IS: LIPITOR PO QHS NORVASC PO QD HYDRALAZINE PO Q8HR LABETALOL PO Q12HR ASA PO QD MED/SURG STATUS DCP: PATIENT IS FROM HOME
[2018-07-16] MEDS: Vitamin B12 1000mcg/ml Inj SUBQ SCH (17:26)
--- NOTE | 2018-07-16 18:06 | Internal Med Progress Note ---
Subjective Date of Service: Jul 16, 2018 Physician Name KellyMarcos osorio Attending Physician Kole Gillis MD Current Medications Medications (Trade) Dose Ordered Sig/Caroline Route PRN Reason Start Time Stop Time Status Last Admin Dose Admin Acetaminophen (Tylenol) 650 mg Q4H PRN ORAL fever 07/15/18 17:30 08/13/18 17:29 07/15/18 17:32 Al Hydroxide/Mg Hydroxide (Mylanta II) 30 ml Q6H PRN ORAL dyspepsia 07/15/18 17:00 08/13/18 16:59 Albuterol/ Ipratropium (Albuterol/ Ipratropium) 3 ml Q4H PRN HHN Shortness of Breath 07/15/18 17:00 07/19/18 16:59 Amlodipine Besylate (Norvasc) 10 mg DAILY ORAL 07/16/18 09:00 08/14/18 08:59 07/16/18 08:25 Aspirin (ASA) 81 mg DAILY ORAL 07/15/18 18:00 08/14/18 17:59 07/16/18 08:24 Atorvastatin Calcium (Lipitor) 20 mg BEDTIME ORAL 07/16/18 21:00 08/15/18 20:59 Clonidine HCl (Catapres Tab) 0.1 mg Q4H PRN ORAL For High Blood Pressure 07/15/18 17:00 08/13/18 16:59 07/15/18 17:29 Cyanocobalamin (Vitamin B12) 1,000 mcg DAILY SUBQ 07/16/18 16:00 07/18/18 09:01 07/16/18 17:26 Dextrose (Dextrose 50%) 25 ml Q30M PRN IV Hypoglycemia 07/16/18 08:00 08/15/18 07:59 Dextrose (Dextrose 50%) 50 ml Q30M PRN IV Hypoglycemia 07/16/18 08:00 08/15/18 07:59 Heparin Sodium (Porcine) (Heparin 5000 units/ml) 5,000 units EVERY 12 HOURS SUBQ 07/15/18 21:00 08/13/18 20:59 07/16/18 08:27 Hydralazine HCl (Apresoline) 100 mg Q8HR ORAL 07/15/18 22:00 08/14/18 13:59 07/16/18 14:11 Hydrochlorothiazide (Hydrodiuril) 12.5 mg DAILY ORAL 07/16/18 09:00 08/15/18 08:59 07/16/18 08:24 Insulin Aspart (NovoLOG) BEFORE MEALS AND HS SUBQ 07/16/18 11:30 08/15/18 11:29 07/16/18 12:49 Labetalol HCl (Normodyne) 100 mg Q12HR ORAL 07/15/18 21:00 08/14/18 20:59 07/16/18 08:25 Lorazepam (Ativan 2mg/ml 1ml) 0.5 mg Q4H PRN IV For Anxiety 07/15/18 17:30 07/21/18 17:29 Nitroglycerin (Ntg) 0.4 mg Q5M X 3 DOSES PRN SL Prn Chest Pain 07/15/18 16:30 08/13/18 17:29 Ondansetron HCl (Zofran) 4 mg Q6H PRN IVP Nausea & Vomiting 07/15/18 17:00 08/13/18 16:59 Polyethylene Glycol (Miralax) 17 gm HSPRN PRN ORAL Constipation 07/15/18 17:00 08/13/18 16:59 Temazepam (Restoril) 15 mg HSPRN PRN ORAL Insomnia 07/15/18 17:30 07/21/18 17:29 Allergies: Coded Allergies: PENICILLINS (Verified Allergy, Severe, SWELLING, 06/28/18) MITCHELL INHIBITORS (Verified Allergy, Unknown, 06/28/18) CODEINE (Verified Allergy, Unknown, GI UPSET,HEADACHE, 06/28/18) DIPHENHYDRAMINE (Verified Allergy, Unknown, 06/28/18) ROS Limited/Unobtainable: No Constitutional: Reports: no symptoms HEENT: Reports: no symptoms Cardiovascular: Reports: no symptoms Respiratory: Reports: no symptoms Gastrointestinal/Abdominal: Reports: no symptoms Genitourinary: Reports: no symptoms Neurologic/Psychiatric: Reports: no symptoms Subjective 72 YO F with history of cerebral vascular accident admitted with new paresthesia. Cover for Int Ryan-Dr Gillis Objective Last Vital Signs Date Time Temp Pulse Resp B/P (MAP) Pulse Ox O2 Delivery O2 Flow Rate FiO2 07/16/18 14:11 146/68 07/16/18 12:00 97.7 71 18 98 07/16/18 07:58 Room Air 07/16/18 07:05 21 Laboratory Tests Test 07/15/18 21:05 Vitamin D 25-Hydroxy Pending 25-Hydroxy Vitamin D2 Pending 25-Hydroxy Vitamin D3 Pending Rapid Plasma Reagin Pending Intake and Output 07/15/18 07/16/18 19:00 07:00 Intake Total 780 ml Balance 780 ml Intake Oral 480 ml IV Total 300 ml # Voids 2 Objective PHYSICAL EXAMINATION: GENERAL: The patient is a well-developed and well-nourished female, in no apparent distress. HEENT: Eyes, pupils are equal and responsive to light and accommodation. Extraocular movements are intact. NECK: Supple without lymphadenopathy. CHEST: Lungs are clear to auscultation bilaterally without wheezes or rales. CARDIOVASCULAR: Regular rhythm and rate. S1 and S2 normal without murmurs, rubs, or gallops. ABDOMEN: Soft, nontender, and nondistended. Positive bowel sounds. No evidence of hepatosplenomegaly. Currently, no rebound or guarding noted. EXTREMITIES: Negative for clubbing, cyanosis, or edema. RECTAL/GENITAL: Refused. NEUROLOGIC: Cranial nerves II through XII are grossly intact without focal deficits. Motor strength is 5/5 bilaterally. Deep tendon reflexes are 2+ plantar. Assessment/Plan Assessment/Plan ASSESSMENT: This is a 72-year-old female with: 1.Paresthesia 2. Cerebrovascular disease. 3. Diabetes type 2. 4. Hypertension. 5. Renal cell cancer. TREATMENT: 1. Probable transient ischemic attack. MRI=old right posterior parietal lobe infarct. See Neurology consultation by Dr. Malvin James. We will follow recommendations of Dr. James. Continue aspirin. 2. Diabetes type 2. The patient has been placed on a NovoLog sliding scale. 3. Hypertension. Continue amlodipine as above. Clonidine has been added p.r.n. for systolic greater than 150 or diastolic greater than 100. 4. History of renal cell cancer, status post resection. Marcos Kelly MD Jul 16, 2018 18:06
--- NOTE | 2018-07-16 19:00 | NUR ---
NURSE NOTES: Received report from morning nurse. Patient in stable condition. Alert, oriented. No complaints of pain. Bed in lowest position, locked, side rails up x2, call within reach. IV HL on RH, intact. No distress noted. Will continue to monitor.
--- NOTE | 2018-07-16 19:19 | NUR ---
HAND-OFF: Report given to Prieto Flood RN. pt is stable.
[2018-07-16 20:00] VITALS: BP 168/65
[2018-07-16] MEDS ORDERED: Atorvastatin 20mg tab ORAL SCH (21:00)
--- NOTE | 2018-07-16 22:16 | Cardiology Progress Note ---
Assessment/Plan Assessment/Plan Her BP is better controlled, continue current management Subjective Subjective The patient feels much better, and no headache, neurologically stable as well Objective Last 24 Hour Vital Signs Date Time Temp Pulse Resp B/P (MAP) Pulse Ox O2 Delivery O2 Flow Rate FiO2 07/16/18 21:00 Room Air 07/16/18 20:13 74 168/65 07/16/18 20:00 98.6 74 18 168/65 (99) 96 07/16/18 16:00 98.4 70 18 152/59 (90) 98 07/16/18 14:11 146/68 07/16/18 12:00 97.7 71 18 149/61 (90) 98 07/16/18 08:25 71 160/59 07/16/18 08:25 71 160/59 07/16/18 08:00 97.4 71 18 160/59 (92) 97 07/16/18 07:58 Room Air 07/16/18 07:05 74 18 Room Air 21 07/16/18 05:50 175/73 07/16/18 04:00 97.3 67 18 175/73 (107) 97 07/16/18 00:00 98.0 73 18 159/64 (95) 96 General Appearance: no apparent distress EENT: PERRL/EOMI Neck: no JVD Rhythm: NSR Cardiovascular: regular rhythm Respiratory/Chest: normal breath sounds Abdomen: non tender Extremities: no swelling Intake and Output 07/15/18 07/16/18 19:00 07:00 Intake Total 780 ml Balance 780 ml Intake Oral 480 ml IV Total 300 ml # Voids 2 Yolette Jules MD Jul 16, 2018 22:16
[2018-07-17] VITALS: BP 162/61
[2018-07-17 04:00] VITALS: BP 121/67
[2018-07-17] MEDS: HydrALAZINE 50mg tab ORAL SCH ×2 (06:44→14:19)
[2018-07-17] MEDS: NovoLOG Insulin Flexpen SUBQ SCH ×3 (06:45→17:17)
[2018-07-17 07:04] LABS: BASOPHILS % (AUTO) 0.7 % (0.0-2.0); EOSINOPHILS % (AUTO) 5.6 % (0.0-3.0); HEMATOCRIT 35.1 % (37.0-47.0); HEMOGLOBIN 11.9 G/DL (12.0-16.0); LYMPHOCYTES % (AUTO) 37.6 % (20.0-45.0); MEAN CORPUSCULAR VOLUME 90 FL (80-99); MONOCYTES % (AUTO) 7.4 % (1.0-10.0); NEUTROPHILS % (AUTO) 48.6 % (45.0-75.0); PLATELET COUNT 220 K/UL (150-450); RED BLOOD COUNT 3.89 M/UL (4.20-5.40); WHITE BLOOD COUNT 4.3 K/UL (4.8-10.8)
[2018-07-17 07:26] LABS: ANION GAP 8 mmol/L (5-15); BLOOD UREA NITROGEN 27 mg/dL (7-18); CALCIUM 9.2 MG/DL (8.5-10.1); CARBON DIOXIDE 26 MMOL/L (21-32); CHLORIDE 106 MMOL/L (98-107); CREATININE 1.2 MG/DL (0.55-1.30); POTASSIUM 4.1 MMOL/L (3.5-5.1); SODIUM 140 MMOL/L (136-145)
--- NOTE | 2018-07-17 07:30 | NUR ---
HAND-OFF: Report given to KAVON Naqvi. Patient in stable condition.
--- NOTE | 2018-07-17 07:31 | NUR ---
NURSE NOTES: Received patient awake, alert and oriented, sitting up comfortably in bed. IV site at right hand, 22 gauge, saline lock. Bed at lowest level with 2 side rails up. Call light within reach. In no apparent distress at this time. Will continue to monitor.
[2018-07-17 07:48] VITALS: BP 102/58
[2018-07-17] MEDS: Aspirin Baby 81mg ORAL SCH (08:49)
[2018-07-17] MEDS: hydroCHLOROthiazide 12.5mg TAB ORAL SCH (08:50)
[2018-07-17] MEDS: Heparin 5000 units/ml inj SUBQ SCH (08:51)
[2018-07-17] MEDS: Vitamin B12 1000mcg/ml Inj SUBQ SCH (08:58)
--- NOTE | 2018-07-17 09:20 | Pulmonology Progress Note ---
Assessment/Plan Assessment/Plan ASSESSMENT cerebrovascular disease with hx of old CVA paresthesia, probably TIA , HTN urgency -resolved DM- Hyperlipidemia Hx of renal Ca, s/p R nephrectomy PLAN OF CARE Med Surg floor Neuro follows MRI of the brain revealed old infarct right posterior parietal lobe with laminar necrosis and volume loss; chronic small vessel disease, involving white matter tracts noted continue antiplatelet therapy with ASA lipid panel with elevated LDL, start on statin cardiac low-fat low-cholesterol diet , discussed with pt in detail BP management with multiply regimen of anti-HTN, including BB, CCB, hydralazine , HcTz and titrate further as needed to keep BP under control cardio follows, supplemental O2 prn to keep pulse ox above 90% ; pulmonary toilet prn DVT prophylaxis neuro follows EEG normal BS management with SSI, stable, hemoglobin A1c 7.5 swallow eval noted diet texture as per ST recommendations with strict aspiration precautions PT to mobilize and work with pt bowel regimen supportive care pain management prn monitor renal parameters, lytes, correct as needed, s/p IVF per cardio consider other causes of poorly controlled HTN, with workup as outpt when BP stabilized consider sleep study as well can be dc - per PMD will need scripts for BP meds and statin upon dc case discussed and evaluated by supervising physician Subjective Allergies: Coded Allergies: PENICILLINS (Verified Allergy, Severe, SWELLING, 06/28/18) MITCHELL INHIBITORS (Verified Allergy, Unknown, 06/28/18) CODEINE (Verified Allergy, Unknown, GI UPSET,HEADACHE, 06/28/18) DIPHENHYDRAMINE (Verified Allergy, Unknown, 06/28/18) All Systems: reviewed and negative except above Subjective Denies chest pain, shortness of breath Pulse ox stable on room air No weakness EEG normal Objective Last 24 Hour Vital Signs Date Time Temp Pulse Resp B/P (MAP) Pulse Ox O2 Delivery O2 Flow Rate FiO2 07/17/18 09:00 77 102/58 07/17/18 08:59 77 102/58 07/17/18 08:05 77 16 Room Air 21 07/17/18 07:48 98.4 82 18 102/58 (73) 97 07/17/18 06:44 121/67 07/17/18 04:00 98.3 83 18 121/67 (85) 96 07/17/18 03:37 85 16 Room Air 21 07/17/18 00:00 98.4 76 18 162/61 (94) 94 07/16/18 22:16 163/63 07/16/18 21:00 Room Air 07/16/18 20:13 74 168/65 07/16/18 20:00 98.6 74 18 168/65 (99) 96 07/16/18 16:00 98.4 70 18 152/59 (90) 98 07/16/18 14:11 146/68 07/16/18 12:00 97.7 71 18 149/61 (90) 98 Intake and Output 07/16/18 07/17/18 18:59 06:59 Intake Total 1090 ml Balance 1090 ml Intake Oral 1090 ml # Voids 3 3 Objective General Appearance: no acute distress HEENT: normocephalic, atraumatic, anicteric, mucous membranes moist Respiratory/Chest: chest wall non-tender, lungs clear, no respiratory distress , no accessory muscle use Cardiovascular: normal peripheral pulses, normal rate, no JVD Abdomen: normal bowel sounds, soft, non tender, non distended Extremities: no edema Neurologic/Psychiatric: 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 grossly normal, no motor/sensory deficits, alert, oriented x 3, responsive, motor strength 5/5 BUE and BLE, sensory intact Musculoskeletal: normal muscle bulk Laboratory Tests 07/17/18 05:27: White Blood Count 4.3L, Red Blood Count 3.89L, Hemoglobin 11.9L, Hematocrit 35.1L, Mean Corpuscular Volume 90, Mean Corpuscular Hemoglobin 30.5, Mean Corpuscular Hemoglobin Concent 33.8, Red Cell Distribution Width 12.0, Platelet Count 220, Mean Platelet Volume 6.3L, Neutrophils (%) (Auto) 48.6, Lymphocytes ( %) (Auto) 37.6, Monocytes (%) (Auto) 7.4, Eosinophils (%) (Auto) 5.6H, Basophils (%) (Auto) 0.7, Sodium Level 140, Potassium Level 4.1, Chloride Level 106, Carbon Dioxide Level 26, Anion Gap 8, Blood Urea Nitrogen 27H, Creatinine 1.2, Estimat Glomerular Filtration Rate , Glucose Level 139H, Calcium Level 9.2 Current Medications Medications (Trade) Dose Ordered Sig/Caroline Route PRN Reason Start Time Stop Time Status Last Admin Dose Admin Acetaminophen (Tylenol) 650 mg Q4H PRN ORAL fever 07/15/18 17:30 08/13/18 17:29 07/15/18 17:32 Al Hydroxide/Mg Hydroxide (Mylanta II) 30 ml Q6H PRN ORAL dyspepsia 07/15/18 17:00 08/13/18 16:59 Albuterol/ Ipratropium (Albuterol/ Ipratropium) 3 ml Q4H PRN HHN Shortness of Breath 07/15/18 17:00 07/19/18 16:59 Amlodipine Besylate (Norvasc) 10 mg DAILY ORAL 07/16/18 09:00 08/14/18 08:59 07/16/18 08:25 Aspirin (ASA) 81 mg DAILY ORAL 07/15/18 18:00 08/14/18 17:59 07/17/18 08:49 Atorvastatin Calcium (Lipitor) 20 mg BEDTIME ORAL 07/16/18 21:00 08/15/18 20:59 07/16/18 20:11 Clonidine HCl (Catapres Tab) 0.1 mg Q4H PRN ORAL For High Blood Pressure 07/15/18 17:00 08/13/18 16:59 07/15/18 17:29 Cyanocobalamin (Vitamin B12) 1,000 mcg DAILY SUBQ 07/16/18 16:00 07/18/18 09:01 07/17/18 08:58 Dextrose (Dextrose 50%) 25 ml Q30M PRN IV Hypoglycemia 07/16/18 08:00 08/15/18 07:59 Dextrose (Dextrose 50%) 50 ml Q30M PRN IV Hypoglycemia 07/16/18 08:00 08/15/18 07:59 Heparin Sodium (Porcine) (Heparin 5000 units/ml) 5,000 units EVERY 12 HOURS SUBQ 07/15/18 21:00 08/13/18 20:59 07/17/18 08:51 Hydralazine HCl (Apresoline) 100 mg Q8HR ORAL 07/15/18 22:00 08/14/18 13:59 07/17/18 06:44 Hydrochlorothiazide (Hydrodiuril) 12.5 mg DAILY ORAL 07/16/18 09:00 08/15/18 08:59 07/17/18 08:50 Insulin Aspart (NovoLOG) BEFORE MEALS AND HS SUBQ 07/16/18 11:30 08/15/18 11:29 07/17/18 06:45 Labetalol HCl (Normodyne) 100 mg Q12HR ORAL 07/15/18 21:00 08/14/18 20:59 07/16/18 20:13 Lorazepam (Ativan 2mg/ml 1ml) 0.5 mg Q4H PRN IV For Anxiety 07/15/18 17:30 07/21/18 17:29 Nitroglycerin (Ntg) 0.4 mg Q5M X 3 DOSES PRN SL Prn Chest Pain 07/15/18 16:30 08/13/18 17:29 Ondansetron HCl (Zofran) 4 mg Q6H PRN IVP Nausea & Vomiting 07/15/18 17:00 08/13/18 16:59 Polyethylene Glycol (Miralax) 17 gm HSPRN PRN ORAL Constipation 07/15/18 17:00 08/13/18 16:59 Temazepam (Restoril) 15 mg HSPRN PRN ORAL Insomnia 07/15/18 17:30 07/21/18 17:29 Regla Ramey [employer] Jul 17, 2018 09:20
[2018-07-17 11:43] VITALS: BP 141/65
--- NOTE | 2018-07-17 13:11 | Neurology Progress Note ---
Interim History Interim History Interim History Ms. Araiza feels very well. She continues to be free of all neurologic symptoms. She has had no further episodes of left facial weakness or numbness. She denies any new neurologic symptoms. She specifically denies any weakness, numbness, problems with speech, problems with language, problems with vision, or problems with memory. Her blood pressures are however fluctuating. Review of Systems Neuro Review of Systems Benign. Objective Physical Exam Last Vital Signs Date Time Temp Pulse Resp B/P (MAP) Pulse Ox O2 Delivery O2 Flow Rate FiO2 07/17/18 11:43 98.0 75 20 141/65 (90) 98 07/17/18 09:00 Room Air 07/17/18 08:05 21 Laboratory Tests Test 07/17/18 05:27 White Blood Count 4.3 K/UL (4.8-10.8) L Red Blood Count 3.89 M/UL (4.20-5.40) L Hemoglobin 11.9 G/DL (12.0-16.0) L Hematocrit 35.1 % (37.0-47.0) L Mean Corpuscular Volume 90 FL (80-99) Mean Corpuscular Hemoglobin 30.5 PG (27.0-31.0) Mean Corpuscular Hemoglobin Concent 33.8 G/DL (32.0-36.0) Red Cell Distribution Width 12.0 % (11.6-14.8) Platelet Count 220 K/UL (150-450) Mean Platelet Volume 6.3 FL (6.5-10.1) L Neutrophils (%) (Auto) 48.6 % (45.0-75.0) Lymphocytes (%) (Auto) 37.6 % (20.0-45.0) Monocytes (%) (Auto) 7.4 % (1.0-10.0) Eosinophils (%) (Auto) 5.6 % (0.0-3.0) H Basophils (%) (Auto) 0.7 % (0.0-2.0) Sodium Level 140 MMOL/L (136-145) Potassium Level 4.1 MMOL/L (3.5-5.1) Chloride Level 106 MMOL/L (98-107) Carbon Dioxide Level 26 MMOL/L (21-32) Anion Gap 8 mmol/L (5-15) Blood Urea Nitrogen 27 mg/dL (7-18) H Creatinine 1.2 MG/DL (0.55-1.30) Estimat Glomerular Filtration Rate mL/min (>60) Glucose Level 139 MG/DL (74-106) H Calcium Level 9.2 MG/DL (8.5-10.1) Neurologic Exam Objective PHYSICAL EXAMINATION: GENERAL: She is a well-developed, well-nourished, slightly obese lady , sitting up at the edge of her bed, in no acute distress. HEAD: Normocephalic and atraumatic. EENT: Benign. NECK: No neck rigidity was observed. NEUROLOGICAL EXAMINATION: MENTAL STATUS EXAMINATION: She was awake and alert. She was oriented to person, place, and time. She was able to recall 3/3 words immediately after 1 minute and after 3 minutes. She was able to remember presidents, Trump and Obama, but could not remember presidents prior to that. Her mathematical skills were fairly good. Her visuospatial function was preserved. SPEECH: She had no dysarthria. LANGUAGE: She had no aphasia. CRANIAL NERVE EXAMINATION: II: The visual soto were intact on confrontation testing. III, IV & : External ocular movements were full and the pupils 3 mm in diameter, equal, round, regular, and reactive to light. V: She had normal facial sensations, and the temporales, masseters, and pterygoids functioned normally. VII: She had a mild left VII central facial paresis. VIII: She was able to hear well bilaterally and had no nystagmus. IX: The palate moved symmetrically on phonation. X: She had no hoarseness of voice. XI: The sternocleidomastoids and trapezii function normally. XII: The tongue was in the midline without any fasciculations or atrophy. MOTOR SYSTEM: The tone was normal in all four extremities. Examination of muscle mass revealed no focal wasting. Examination of power revealed G 5/5 power. SENSORY EXAMINATION: She had intact sensations to pinprick, light touch, and graphesthesia. COORDINATION: She performed well on axwkoi-my-qsdz and umyx-ba-xhhn testing. On Romberg test, she swayed, but did not fall to one side or the other. REFLEXES: 0 at the biceps, triceps,brachioradialis, knees, and ankles. The plantar responses were flexor bilaterally. STANCE: She had a minimally wide-based, but stable stance. GAIT: She walked with a minimally wide-based, but stable gait. Impression/Recommendations Diagnostic Impression 1. Ms. Michelle Araiza is a 72-year-old, right-handed, lady, with past history of hypertension, diabetes mellitus, and a stroke in April 2018 manifested by left facial weakness. She then had another event in May 2018 where she again had left facial weakness and this was labeled a stroke. She then did well until July 14, 2018, when she had an episode of left facial numbness. This was associated with inability to walk because of a sensation of being unsteady on her feet. Her symptoms resolved rapidly. It should be noted that all these episodes were associated with her blood pressure being elevated to close to 200 mmHg systolic. 2. She feels very well. She continues to be free of all neurologic symptoms. She has had no further episodes of left facial weakness or numbness. She denies any new neurologic symptoms. 3. On neurological examination, at this time, she does have mild problems with memory and a left VII central facial paresis. The left paresis has resolved completely in the upper and lower extremities. She continues to have globally absent deep tendon reflexes. In addition, she has a minimally wide-based stance and gait. 4. The CT scan of the brain without contrast reveals an old right parietal infarct. 5. An MRI scan of the brain also reveals an old right parietal infarct. 6. Her latest laboratory data on my initial evaluation revealed relatively a normal CBC, a chemistry panel with BUN elevated to 25, lipid panel with total cholesterol of 180 with an LDL of 104 and HDL of 70, TSH that was normal at 0.96 , an INR that was normal at 1.0 with a PTT of 29, and a urinalysis which revealed 2+ leukocyte esterase, 2-4 red blood cells, and 5-10 white blood cells per high-power field. 7. Further laboratory tests have revealed that her Hb A1c is elevated at 7.5% and her Vitamin B 12 level is low at 216. 8. Her carotid duplex scan is normal. 9. The EEG done on 07/16/18 was normal in the awake, drowsy and sleep II states. 10. The patient's history, neurological examination, laboratory data, EEG and imaging studies are most compatible with recrudescence of symptoms related to an old right parietal infarct due to hypertension. 11. The patient also does have findings compatible with a neuropathic process - this is most probably due to a B12 deficiency and diabetes mellitus. 12. The patient's blood pressure is still not well controlled. Recommendations 1. Continue present management. 2. Her blood pressure should be brought down into physiological range with goal being <120/80 mmHg at all times. 3. The patient's hemoglobin A1c goal should be <6%. 4. The patient's LDL goal should be < 70. 5. Vitamin B 12 - 1000 mcg SC daily x 3 days and then q month. 6. If discharged - follow up in office in ~ 2 months. Malvin James M.D., M.S.P.H. Malvin James MD Jul 17, 2018 13:11
[2018-07-17 16:00] VITALS: BP 159/75
--- NOTE | 2018-07-17 17:28 | NUR ---
CASE MANAGEMENT: DCPNOTE PER MD ORDER PATIENT REFERRED TO [facility] [phone] PH / [phone] FAX
--- NOTE | 2018-07-17 18:22 | Internal Med Progress Note ---
Subjective Date of Service: Jul 17, 2018 Physician Name Kelly,Marcos Attending Physician Kole Gillis MD Current Medications Medications (Trade) Dose Ordered Sig/Caroline Route PRN Reason Start Time Stop Time Status Last Admin Dose Admin Acetaminophen (Tylenol) 650 mg Q4H PRN ORAL fever 07/15/18 17:30 08/13/18 17:29 07/15/18 17:32 Al Hydroxide/Mg Hydroxide (Mylanta II) 30 ml Q6H PRN ORAL dyspepsia 07/15/18 17:00 08/13/18 16:59 Albuterol/ Ipratropium (Albuterol/ Ipratropium) 3 ml Q4H PRN HHN Shortness of Breath 07/15/18 17:00 07/19/18 16:59 Amlodipine Besylate (Norvasc) 10 mg DAILY ORAL 07/16/18 09:00 08/14/18 08:59 07/16/18 08:25 Aspirin (ASA) 81 mg DAILY ORAL 07/15/18 18:00 08/14/18 17:59 07/17/18 08:49 Atorvastatin Calcium (Lipitor) 20 mg BEDTIME ORAL 07/16/18 21:00 08/15/18 20:59 07/16/18 20:11 Clonidine HCl (Catapres Tab) 0.1 mg Q4H PRN ORAL For High Blood Pressure 07/15/18 17:00 08/13/18 16:59 07/15/18 17:29 Cyanocobalamin (Vitamin B12) 1,000 mcg DAILY SUBQ 07/16/18 16:00 07/18/18 09:01 07/17/18 08:58 Dextrose (Dextrose 50%) 25 ml Q30M PRN IV Hypoglycemia 07/16/18 08:00 08/15/18 07:59 Dextrose (Dextrose 50%) 50 ml Q30M PRN IV Hypoglycemia 07/16/18 08:00 08/15/18 07:59 Heparin Sodium (Porcine) (Heparin 5000 units/ml) 5,000 units EVERY 12 HOURS SUBQ 07/15/18 21:00 08/13/18 20:59 07/17/18 08:51 Hydralazine HCl (Apresoline) 100 mg Q8HR ORAL 07/15/18 22:00 08/14/18 13:59 07/17/18 14:19 Hydrochlorothiazide (Hydrodiuril) 12.5 mg DAILY ORAL 07/16/18 09:00 08/15/18 08:59 07/17/18 08:50 Insulin Aspart (NovoLOG) BEFORE MEALS AND HS SUBQ 07/16/18 11:30 08/15/18 11:29 07/17/18 17:17 Labetalol HCl (Normodyne) 100 mg Q12HR ORAL 07/15/18 21:00 08/14/18 20:59 07/16/18 20:13 Lorazepam (Ativan 2mg/ml 1ml) 0.5 mg Q4H PRN IV For Anxiety 07/15/18 17:30 07/21/18 17:29 Nitroglycerin (Ntg) 0.4 mg Q5M X 3 DOSES PRN SL Prn Chest Pain 07/15/18 16:30 08/13/18 17:29 Ondansetron HCl (Zofran) 4 mg Q6H PRN IVP Nausea & Vomiting 07/15/18 17:00 08/13/18 16:59 Polyethylene Glycol (Miralax) 17 gm HSPRN PRN ORAL Constipation 07/15/18 17:00 08/13/18 16:59 Temazepam (Restoril) 15 mg HSPRN PRN ORAL Insomnia 07/15/18 17:30 07/21/18 17:29 Allergies: Coded Allergies: PENICILLINS (Verified Allergy, Severe, SWELLING, 06/28/18) MITCHELL INHIBITORS (Verified Allergy, Unknown, 06/28/18) CODEINE (Verified Allergy, Unknown, GI UPSET,HEADACHE, 06/28/18) DIPHENHYDRAMINE (Verified Allergy, Unknown, 06/28/18) ROS Limited/Unobtainable: No Constitutional: Reports: no symptoms HEENT: Reports: no symptoms Cardiovascular: Reports: no symptoms Respiratory: Reports: no symptoms Gastrointestinal/Abdominal: Reports: no symptoms Genitourinary: Reports: no symptoms Neurologic/Psychiatric: Reports: no symptoms Subjective 72 YO F with history of cerebral vascular accident admitted with new paresthesia. Cover for Int Ryan-Dr Gillis Objective Last Vital Signs Date Time Temp Pulse Resp B/P (MAP) Pulse Ox O2 Delivery O2 Flow Rate FiO2 07/17/18 16:00 97.9 81 20 159/75 (103) 96 07/17/18 09:00 Room Air 07/17/18 08:05 21 Laboratory Tests Test 07/17/18 05:27 White Blood Count 4.3 K/UL (4.8-10.8) L Red Blood Count 3.89 M/UL (4.20-5.40) L Hemoglobin 11.9 G/DL (12.0-16.0) L Hematocrit 35.1 % (37.0-47.0) L Mean Corpuscular Volume 90 FL (80-99) Mean Corpuscular Hemoglobin 30.5 PG (27.0-31.0) Mean Corpuscular Hemoglobin Concent 33.8 G/DL (32.0-36.0) Red Cell Distribution Width 12.0 % (11.6-14.8) Platelet Count 220 K/UL (150-450) Mean Platelet Volume 6.3 FL (6.5-10.1) L Neutrophils (%) (Auto) 48.6 % (45.0-75.0) Lymphocytes (%) (Auto) 37.6 % (20.0-45.0) Monocytes (%) (Auto) 7.4 % (1.0-10.0) Eosinophils (%) (Auto) 5.6 % (0.0-3.0) H Basophils (%) (Auto) 0.7 % (0.0-2.0) Sodium Level 140 MMOL/L (136-145) Potassium Level 4.1 MMOL/L (3.5-5.1) Chloride Level 106 MMOL/L (98-107) Carbon Dioxide Level 26 MMOL/L (21-32) Anion Gap 8 mmol/L (5-15) Blood Urea Nitrogen 27 mg/dL (7-18) H Creatinine 1.2 MG/DL (0.55-1.30) Estimat Glomerular Filtration Rate mL/min (>60) Glucose Level 139 MG/DL (74-106) H Calcium Level 9.2 MG/DL (8.5-10.1) Intake and Output 07/16/18 07/17/18 19:00 07:00 Intake Total 1090 ml Balance 1090 ml Intake Oral 1090 ml # Voids 3 3 Objective PHYSICAL EXAMINATION: GENERAL: The patient is a well-developed and well-nourished female, in no apparent distress. HEENT: Eyes, pupils are equal and responsive to light and accommodation. Extraocular movements are intact. NECK: Supple without lymphadenopathy. CHEST: Lungs are clear to auscultation bilaterally without wheezes or rales. CARDIOVASCULAR: Regular rhythm and rate. S1 and S2 normal without murmurs, rubs, or gallops. ABDOMEN: Soft, nontender, and nondistended. Positive bowel sounds. No evidence of hepatosplenomegaly. Currently, no rebound or guarding noted. EXTREMITIES: Negative for clubbing, cyanosis, or edema. RECTAL/GENITAL: Refused. NEUROLOGIC: Cranial nerves II through XII are grossly intact without focal deficits. Motor strength is 5/5 bilaterally. Deep tendon reflexes are 2+ plantar. Assessment/Plan Assessment/Plan ASSESSMENT: This is a 72-year-old female with: 1.Paresthesia 2. Cerebrovascular disease. 3. Diabetes type 2. 4. Hypertension. 5. Renal cell cancer. TREATMENT: 1. Probable transient ischemic attack. MRI=old right posterior parietal lobe infarct. See Neurology consultation by Dr. Malvin James. We will follow recommendations of Dr. James. Continue aspirin. 2. Diabetes type 2. The patient has been placed on a NovoLog sliding scale. 3. Hypertension. Continue amlodipine as above. Clonidine has been added p.r.n. for systolic greater than 150 or diastolic greater than 100. 4. History of renal cell cancer, status post resection. 5. discharge home today Marcos Kelly MD Jul 17, 2018 18:22
--- NOTE | 2018-07-17 18:38 | Cardiology Progress Note ---
Assessment/Plan Assessment/Plan Her BP is better controlled, continue current management Subjective Subjective doing well, has mild headache Objective Last 24 Hour Vital Signs Date Time Temp Pulse Resp B/P (MAP) Pulse Ox O2 Delivery O2 Flow Rate FiO2 07/17/18 16:00 97.9 81 20 159/75 (103) 96 07/17/18 14:19 153/88 07/17/18 11:43 98.0 75 20 141/65 (90) 98 07/17/18 09:00 77 102/58 07/17/18 09:00 Room Air 07/17/18 08:59 77 102/58 07/17/18 08:05 77 16 Room Air 21 07/17/18 07:48 98.4 82 18 102/58 (73) 97 07/17/18 06:44 121/67 07/17/18 04:00 98.3 83 18 121/67 (85) 96 07/17/18 03:37 85 16 Room Air 21 07/17/18 00:00 98.4 76 18 162/61 (94) 94 07/16/18 22:16 163/63 07/16/18 21:00 Room Air 07/16/18 20:13 74 168/65 07/16/18 20:00 98.6 74 18 168/65 (99) 96 General Appearance: no apparent distress EENT: PERRL/EOMI Neck: no JVD Rhythm: NSR Cardiovascular: regular rhythm Respiratory/Chest: normal breath sounds Abdomen: soft Extremities: non-tender Neurologic: health and safety specialist II-XII grossly normal Intake and Output 07/16/18 07/17/18 19:00 07:00 Intake Total 1090 ml Balance 1090 ml Intake Oral 1090 ml # Voids 3 3 Laboratory Tests Test 07/17/18 05:27 White Blood Count 4.3 K/UL (4.8-10.8) L Red Blood Count 3.89 M/UL (4.20-5.40) L Hemoglobin 11.9 G/DL (12.0-16.0) L Hematocrit 35.1 % (37.0-47.0) L Mean Corpuscular Volume 90 FL (80-99) Mean Corpuscular Hemoglobin 30.5 PG (27.0-31.0) Mean Corpuscular Hemoglobin Concent 33.8 G/DL (32.0-36.0) Red Cell Distribution Width 12.0 % (11.6-14.8) Platelet Count 220 K/UL (150-450) Mean Platelet Volume 6.3 FL (6.5-10.1) L Neutrophils (%) (Auto) 48.6 % (45.0-75.0) Lymphocytes (%) (Auto) 37.6 % (20.0-45.0) Monocytes (%) (Auto) 7.4 % (1.0-10.0) Eosinophils (%) (Auto) 5.6 % (0.0-3.0) H Basophils (%) (Auto) 0.7 % (0.0-2.0) Sodium Level 140 MMOL/L (136-145) Potassium Level 4.1 MMOL/L (3.5-5.1) Chloride Level 106 MMOL/L (98-107) Carbon Dioxide Level 26 MMOL/L (21-32) Anion Gap 8 mmol/L (5-15) Blood Urea Nitrogen 27 mg/dL (7-18) H Creatinine 1.2 MG/DL (0.55-1.30) Estimat Glomerular Filtration Rate mL/min (>60) Glucose Level 139 MG/DL (74-106) H Calcium Level 9.2 MG/DL (8.5-10.1) Yolette Jules MD Jul 17, 2018 18:38
--- NOTE | 2018-07-17 19:40 | NUR ---
NURSE NOTES: Patient discharged IV and ID band removed. Belongings accounted for. Discharge paperwork given, discussed and patient verbalized understanding. Escorted from facility by personnel without incident or injury.
--- NOTE | 2018-07-18 10:52 | Discharge Summary ---
Discharge Summary Discharge Summary _ Discharge summary DATE OF ADMISSION: 07/14/2018 DATE OF DISCHARGE: 07/17/2018 DISCHARGED BY: Dr. Gillis REASON FOR ADMISSION: 72 years old female with history of hypertension, type 2 diabetes mellitus, high cholesterol, self-reported stroke last year with no residual deficit, presented with left face and right foot tingling with associated dizziness , that started about 15 minutes while she was at work. Her symptoms resolved at the time of evaluation in emergency department. She denied headache. She denied slurred speech. The only sensation of a tingling sensation was in the left face and right foot along with dizziness , which resolved as well. Upon evaluation patient had elevated blood pressure 208/98, otherwise no fever pulse oximetry was stable on room air. Laboratory workup revealed no leukocytosis ,stable hemoglobin hematocrit. Urinalysis revealed occasional bacteria , +2 leukocyte esterase and minimal pyuria. Electrolytes were stable. BUN 25, creatinine 1.1. Glucose 66. Stable LFT. Troponin was -0.01. EKG revealed sinus rhythm, no acute ischemic changes. Albumin 3.8. CT of the head revealed cytotoxic edema consistent with subacute infarct involving the posterior right parietal lobe, minimal local mass-effect, no associated hemorrhage. No acute hemorrhage . Chronic periventricular low-attenuation consistent with chronic ischemic changes. Chest x-ray revealed mild cardiomegaly , no acute cardiopulmonary pathology. In emergency department patient received aspirin and was admitted to telemetry floor for further evaluation and management. CONSULTANTS: manager erp Dr. Jules neurologist Dr. James [facility]: Patient admitted to telemetry floor. Patient started on antiplatelet therapy. Lipid panel revealed borderline LDL 104. Patient started on statin. Neurologist closely followed. Patient subsequently undergone MRI of the brain , which revealed old infarct right posterior parietal lobe with laminar necrosis and volume loss. Chronic small vessel disease, involving white matter tracts, mainly periventricular in location. Carotid duplex was stable. EEG was done , as per neurology recommendations, and was normal awake , drowsy and stage II sleep EEG. Per neurologist, history, neurological examination, laboratory data , EEG and imaging studies were most compatible with recrudescence of related to an old right parietal infarct due to hypertension. Blood pressure required multiple antihypertensive medications to bring blood pressure under control. Supervisory Civil Engineer closely followed. Blood pressure was managed with beta-sendy, calcium channel sendy, hydralazine, hydrochlorothiazide and further titrated to keep blood pressure m under control. Blood pressures eventually stabilized. Low-fat, low-cholesterol , low salt , diabetic diet was discussed with patient in details. Supplemental oxygen provided as needed to keep pulse oximetry above 90%. Pulmonary toilet was on standby as needed. DVT prophylaxis provided. Blood sugar was managed with sliding scale of insulin and remained stable. Hemoglobin A1c 7.5. Swallow evaluation was done , and diet texture was provided as per speech therapist recommendations due to mild dysphagia with aspiration precautions. Patient was evaluated by physical therapy . Patient able to walk independently. Bowel regimen instituted. Pain management was addressed as needed. Supportive care provided. Patient initially was on the IV fluids, which were subsequently discontinued. Renal parameters and electrolytes were closely monitored. Electrolytes corrected as needed , and nephrotoxins were avoided. Per manager erp recommendation , other causes of poorly controlled hypertension should be investigated as outpatient, including renal artery study and sleep study. TSH and folate within normal limits. B12 in low range of normal. Patient started on subcutaneous vitamin B12 daily for 3 days , and then monthly , as recommended by neurologist. Patient to follow-up with neurologist as outpatient. Patient stabilized and was ready for discharge home FINAL DIAGNOSES: Cerebrovascular disease with history of old right parietal CVA Paresthesia, probably TIA Hypertensive urgency - resolved Diabetes mellitus Hyperlipidemia History of renal cancer , status post right nephrectomy DISCHARGE MEDICATIONS: See Medication Reconciliation list. DISCHARGE INSTRUCTIONS: Patient was discharged home with home health services. Follow up with primary care provider in one week. Outpatient renal artery and sleep study as recommended by manager erp for possible causes of uncontrolled, blood pressure. Follow up with neurologist as outpatient. Regla Ramey NP Jul 18, 2018 10:52
--- NOTE | 2018-07-18 12:27 | Diagnostic Imaging Report ---
APPROVED REPORT CPT Code: 12407 Vascular Symptoms CVA/TIA: Doppler Spectral Velocity Analysis RightLeft BILATERAL: CCA/BULB - Imaging reveals irregular, minimal plaque in both carotid bulbs. arteries. The Doppler spectral flow analysis is within normal limits throughout the internal and external carotid arteries. VERTEBRALS - Imaging reveals both vertebral arteries to be patent, without evidence of stenosis or steal.
--- NOTE | 2018-07-18 12:27 | Diagnostic Imaging Report ---
APPROVED REPORT CPT Code: 37802 Present Symptoms Comments: Swelling BILATERAL: Imaging reveals a patent deep venous system bilaterally. There is no evidence of thrombus within the common femoral, superficial femoral, popliteal or tibial segments. The greater saphenous veins are within normal limits. Doppler indicates normal spontaneous flow within these segments.
--- NOTE | 2018-07-18 16:32 | Cardiology Report ---
APPROVED REPORT EXAM: Two-dimensional and M-mode echocardiogram with Doppler and color Doppler. INDICATION Left ventricular function M-Mode DIMENSIONS IVSd1.1 (0.7-1.1cm)Left Atrium (MM)3.5 (1.6-4.0cm) LVDd4.6 (3.5-5.6cm)Aortic Root4.3 (2.0-3.7cm) PWd1.6 (0.7-1.1cm)Aortic Cusp Exc.2.1 (1.5-2.0cm) LVDs2.6 (2.5-4.0cm) PWs1.6 cm Normal left ventricular chamber size, systolic function and wall motion. Left ventricular ejection fraction estimated to be 60-65 %. Mild left ventricular hypertrophy by 2D. Anterior Echo-free space, may be due to pericardial fat or effusion. Left and right atrial sizes at upper limits of normal. Right ventricular size is within normal limits. Focal aortic valve sclerosis with adequate cusp excursion. Thickened mitral valve leaflets with normal excursion. Mitral annulus and aortic root calcification. Pulmonic valve not well visualized. Normal tricuspid valve structure. IVC measured at 1.6 cm with slight physiologic collapse A color flow and spectral Doppler study was performed and revealed: Trace aortic regurgitation. Trace mitral regurgitation. Mitral diastolic velocities suggest reduced left ventricular relaxation c/w mild LV diastolic dysfunction (Grade I). Trace to mild tricuspid regurgitation. Tricuspid systolic velocities suggests peak right ventricular systolic pressure of 36 mmHg, consistent with borderline mild pulmonary hypertension.
== END 2018-07-17 20:45 | disposition home or self-care (01) | DRG 69 ==
LOC: EMR 14:00 → 2E 15:44 → EDBEDREQ 16:07 → 2E 19:38 → 3E 07-15 16:10
DX: G45.9 Transient cerebral ischemic attack, unspecified (principal); Z86.73 Personal history of transient ischemic attack (TIA), and cerebral infarction without residual deficits; I16.0 Hypertensive urgency; E11.65 Type 2 diabetes mellitus with hyperglycemia; E78.5 Hyperlipidemia, unspecified; Z85.528 Personal history of other malignant neoplasm of kidney; Z90.5 Acquired absence of kidney; Z96.641 Presence of right artificial hip joint; Z79.82 Long term (current) use of aspirin; Z79.4 Long term (current) use of insulin; Z88.6 Allergy status to analgesic agent; Z88.0 Allergy status to penicillin; Z88.8 Allergy status to other drugs, medicaments and biological substances; E53.8 Deficiency of other specified B group vitamins; I67.89 Other cerebrovascular disease
CPT/HCPCS: 36415; 70450; 70551; 71045; 80048; 80053; 80061; 81003; 82140; 82306; 82607; 82746; 82962; 83036; 84443; 84484; 85025; 85610; 85651; 85730; 86592; 93005; 93306; 93880; 93970; 94664; 95819; 96374; 99285; J1815

== ENCOUNTER 2018-08-22 05:45 | Day surgery (SDC) | payer BC, MEDICAID ==
[~2018-08-22] VITALS: Ht 167.6 cm; Wt 80.7 kg
[2018-08-22] VITALS (8 sets, daily range): BP systolic 163–180; BP diastolic 68–79
--- NOTE | 2018-08-22 06:55 | Anethesia Preoperative Eval ---
Anesthesia Pre-op PMH/ROS General Date of Evaluation: Aug 22, 2018 Time of Evaluation: 06:52 Anesthesiologist: sasha ASA Score: ASA 4 Mallampati Score Class I : Soft palate, uvula, fauces, pillars visible Class II: Soft palate, uvula, fauces visible Class III: Soft palate, base of uvula visible Class IV: Only hard plate visible Mallampati Classification: Class II Surgeon: yarely Diagnosis: colon screening Surgical Procedure: colonoscopy Anesthesia History: none Social History: alcohol use Family History: no anesthesia problems Allergies: Coded Allergies: DIPHENHYDRAMINE (Verified Allergy, Severe, HEADACHE,, 08/22/18) "FACE TURNS COLOR CADENA" PENICILLINS (Verified Allergy, Severe, SWELLING, 08/22/18) CODEINE (Verified Allergy, Intermediate, GI UPSET,HEADACHE, NAUSEA, 08/22/18 ) Medications: see eMAR Patient NPO?: Yes Past Medical History Cardiovascular: Reports: HTN Gastrointestinal/Genitourinary: Reports: other - nephrectomy, renal cell carcinoma, uti Neurologic/Psychiatric: Reports: CVA, TIA Endocrine: Reports: DM HEENT: Reports: cataract (L), cataract (R) Musculoskeletal/Integumentary: Reports: OA PSxH Narrative: nephrectomy, cataract sx Anesthesia Pre-op Phys. Exam Physician Exam Last Vital Signs Date Time Temp Pulse Resp B/P (MAP) Pulse Ox O2 Delivery O2 Flow Rate FiO2 08/22/18 07:45 97.8 61 18 163/79 97 Room Air Constitutional: NAD Neurologic: CN 2-12 intact Cardiovascular: RRR Respiratory: CTA Gastrointestinal: S/NT/ND Airway Exam Mallampati Score: Class II MO: limited Neck: flexible TMD: 2fb ROM: limited Teeth: intact, other - upper bridge Anesthesia Pre-op A/P Studies Pre-op Studies: EKG - nsr, possible lae, Risk Assessment & Plan Assessment: asa4 Plan: mac Status Change Before Surgery: No Pre-Antibiotics Drug: Violeta Huizar MD Aug 22, 2018 06:55
[2018-08-22] MEDS ORDERED: fentaNYL 100 mcg/2 mL IV PRN (07:00)
[2018-08-22] MEDS ORDERED: Midazolam 2mg/2ml Inj IVP PRN (07:00)
[2018-08-22] MEDS ORDERED: Atropine Inj 1mg/10ml Syr IV PRN (07:00)
[2018-08-22] MEDS ORDERED: ASPIRIN325 MG ORAL (07:22)
[2018-08-22] MEDS ORDERED: Lidocaine 1% MPF 10mg/ml 5ml ONE (09:00)
[2018-08-22] MEDS ORDERED: D5 1/2NS 1000ml IV ONE (09:00)
[2018-08-22] MEDS ORDERED: Propofol 200mg/20ml IV ONE (09:00)
--- NOTE | 2018-08-22 09:03 | Pre-Procedure Note/Attestation ---
Pre-Procedure Note/Attestation Complete Prior to Procedure Planned Procedure: not applicable Procedure Narrative: colonoscopy Indications for Procedure Pre-Operative Diagnosis: screening Attestation I attest that I discussed the nature of the procedure; its benefits; risks and complications; and alternatives (and the risks and benefits of such alternatives ), prior to the procedure, with the patient (or the patient's legal service representative). I attest that, if there was a reasonable possibility of needing a blood transfusion, the patient (or the patient's legal service representative) was given the [facility] standardized written summary, pursuant to the Alfredo Lyles Blood Safety Act ([place] Health and Safety Code # 1645, as amended). I attest that I re-evaluated the patient just prior to the surgery and that there has been no change in the patient's H&P, except as documented below: Nacho Reynaga MD Aug 22, 2018 09:03
--- NOTE | 2018-08-22 09:04 | Short Stay Surgery H&P ---
History of Present Illness History of Present Illness Chief Complaint see recent office note HPI Michelle Araiza is a 73 year old female who was admitted on for Colon Screening Patient History Allergies: Coded Allergies: DIPHENHYDRAMINE (Verified Allergy, Severe, HEADACHE,, 08/22/18) "FACE TURNS COLOR CADENA" PENICILLINS (Verified Allergy, Severe, SWELLING, 08/22/18) CODEINE (Verified Allergy, Intermediate, GI UPSET,HEADACHE, NAUSEA, 08/22/18 ) Medication History Scheduled Amlodipine Besylate* (Amlodipine Besylate*), 10 MG ORAL DAILY, (Reported) Aspirin* (Aspirin*), 325 MG ORAL DAILY, (Reported) Hydralazine Hcl* (Hydralazine Hcl*), 150 MG ORAL TID, (Reported) Insulin Degludec (Tresiba Flextouch U-100), 20 UNIT SQ BEDTIME, (Reported) Metoprolol Tartrate* (Metoprolol Tartrate*), 50 MG ORAL EVERY 12 HOURS, ( Reported) Physical Exam Vital Signs Last Vital Signs Date Time Temp Pulse Resp B/P (MAP) Pulse Ox O2 Delivery O2 Flow Rate FiO2 08/22/18 07:45 97.8 61 18 163/79 97 Room Air Plan Attestation Are the patient's medical conditions optimized for surgery? Nacho Reynaga MD Aug 22, 2018 09:04
--- NOTE | 2018-08-22 09:28 | Endoscopy Procedure Note ---
Endoscopy Procedure Note General Indication for Procedure: screening Procedures Performed: colonoscopy Operative Findings/Diagnosis: 2 polyps Specimen: yes Pt Tolerated Procedure Well: Yes Estimated Blood Loss: none Anesthesia Anesthesiologist: sasha Anesthesia: MAC Inserted Devices Implant(s) used?: No Quality Quality of Bowel Preparation: Good Did scope reach the cecum?: Yes Was there any complications?: No GI Core Measures 50 yrs or older w/o bx or poly: No 10yrs. F/U not recommended: No If not recommended, why?: Above average risk 10 yrs. F/U needed: Yes 18 years or older w/prev. colo: Yes <3yrs. since last colonoscopy: No Nacho Reynaga MD Aug 22, 2018 09:28
--- NOTE | 2018-08-22 10:23 | Immediate Post-Op Evaluation ---
Immediate Post-Op Evalulation Immediate Post-Op Evalulation Procedure: colonoscopy w/bx Date of Evaluation: Aug 22, 2018 Time of Evaluation: 09:49 IV Fluids: 350ml d5/0.45ns Blood Products: none Estimated Blood Loss: negligible Blood Pressure Systolic: 164 Blood Pressure Diastolic: 72 Pulse Rate: 63 Respiratory Rate: 18 O2 Sat by Pulse Oximetry: 99 Temperature (Fahrenheit): 97.4 Pain Score (1-10): 0 Nausea: No Vomiting: No Complications none Patient Status: awake, reacts, patent Hydration Status: adequate Drug: Violeta Huizar MD Aug 22, 2018 10:23
--- NOTE | 2018-08-22 10:24 | 48 Hour Post Anesthesia Eval ---
Post Anesthesia Evaluation Procedure: colonoscopy w/bx Date of Evaluation: Aug 22, 2018 Time of Evaluation: 09:51 0: 74 Pulse Rate: 56 Respiratory Rate: 18 Temperature (Fahrenheit): 97.4 O2 Sat by Pulse Oximetry: 99 Airway: patent Nausea: No Vomiting: No Pain Intensity: 0 Hydration Status: adequate Cardiopulmonary Status: stable Mental Status/LOC: patient returned to baseline Post-Anesthesia Complications: none Follow-up care needed: N/A Violeta Julio MD Aug 22, 2018 10:24
--- NOTE | 2018-08-22 16:30 | Procedure Note ---
DATE OF PROCEDURE: 08/22/2018 SURGEON: Nacho Reynaga M.D. PROCEDURE: Colonoscopy with snare polypectomy and biopsy. ANESTHESIA: Per Dr. Longo. INSTRUMENT: Olympus adult flexible colonoscope. INDICATION: Screening colonoscopy. REASON FOR PROCEDURE: The procedure, risks, benefits, and possible consequences, including hemorrhage, aspiration, perforation and infection, and alternative treatments, were explained to the patient/legal guardian by Dr. Nacho Reynaga and the patient/legal guardian understood and accepted these risks. PROCEDURE IN DETAIL: After informed consent was obtained and the patient was adequately sedated, first rectal exam was performed, which was normal. Then, the scope was advanced from rectum into the cecum documented by appendiceal orifice, ileocecal valve, and right upper quadrant palpation. Quality of prep was very good. The patient had some scattered diverticulosis. The patient had evidence of two polyps, one in the descending colon. This polyp was relatively flat, measured roughly about 8 mm, removed with hot snare polypectomy technique. There was another small polyp in the sigmoid, removed with the cold snare polypectomy technique. Retroflexion of rectum showed evidence of internal hemorrhoids. The patient tolerated the procedure very well without any complication. SUMMARY OF FINDINGS: 1. Two colonic polyps removed. See above for detail. 2. Scattered diverticulosis. 3. Internal hemorrhoids. RECOMMENDATIONS: 1. Follow up pathology. 2. We recommend repeat colonoscopy in 5 years. Nacho Reynaga M.D. DR: RADHA JOB#: [id number] CC:
== END 2018-08-22 13:50 | disposition home or self-care (01) ==
LOC: GAS 05:45
DX: Z12.11 Encounter for screening for malignant neoplasm of colon (principal); K63.5 Polyp of colon; D12.4 Benign neoplasm of descending colon; K57.90 Diverticulosis of intestine, part unspecified, without perforation or abscess without bleeding; K64.8 Other hemorrhoids; Z88.0 Allergy status to penicillin; Z88.6 Allergy status to analgesic agent; Z79.82 Long term (current) use of aspirin; Z79.4 Long term (current) use of insulin; I10 Essential (primary) hypertension; Z85.53 Personal history of malignant neoplasm of renal pelvis; Z90.5 Acquired absence of kidney; Z86.73 Personal history of transient ischemic attack (TIA), and cerebral infarction without residual deficits; E11.9 Type 2 diabetes mellitus without complications; M19.90 Unspecified osteoarthritis, unspecified site
CPT/HCPCS: 45380; 45384; 82962; 93005; J2704; 94003; 94150

== ENCOUNTER 2019-12-12 07:49 | Emergency (ER) | payer BC ==
[~2019-12-12 07:49] MED LIST changes: +ASPIRIN325 MG ORAL; +IBUPROFEN600 MG ORAL; +TAMIFLU75 MG ORAL
[2019-12-12] MEDS ORDERED: Labetalol 5mg/ml 20ml vial IV ONE (08:00)
[2019-12-12 08:07] VITALS: BP 167/63
[2019-12-12 08:21] LABS: BASOPHILS % (AUTO) 0.8 % (0.0-2.0); EOSINOPHILS % (AUTO) 1.3 % (0.0-3.0); HEMATOCRIT 37.9 % (37.0-47.0); HEMOGLOBIN 12.6 G/DL (12.0-16.0); LYMPHOCYTES % (AUTO) 28.2 % (20.0-45.0); MEAN CORPUSCULAR VOLUME 90 FL (80-99); MONOCYTES % (AUTO) 6.8 % (1.0-10.0); NEUTROPHILS % (AUTO) 62.8 % (45.0-75.0); PLATELET COUNT 246 K/UL (150-450); RED BLOOD COUNT 4.19 M/UL (4.20-5.40); RED CELL DISTRIBUTION WIDTH 11.6 % (11.6-14.8); WHITE BLOOD COUNT 5.3 K/UL (4.8-10.8)
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
[2019-12-12 08:33] LABS: ANION GAP 10 mmol/L (5-15); BLOOD UREA NITROGEN 24 mg/dL (7-18); CALCIUM 9.2 MG/DL (8.5-10.1); CARBON DIOXIDE 24 MMOL/L (21-32); CHLORIDE 102 MMOL/L (98-107); CREATININE 1.1 MG/DL (0.55-1.30); POTASSIUM 3.9 MMOL/L (3.5-5.1); SODIUM 136 MMOL/L (136-145)
--- NOTE | 2019-12-12 08:40 | Diagnostic Imaging Report ---
Indication: Cough Technique: One view of the chest Comparison: 06/06/2019 Findings: Lungs and pleural spaces are clear. The heart size is upper limits of normal. No significant interim change Impression: No acute process
[2019-12-12 08:43] LABS: ALANINE AMINOTRANSFERASE 15 U/L (12-78); ALBUMIN 3.9 G/DL (3.4-5.0); ALBUMIN/GLOBULIN RATIO 1.3 (1.0-2.7); ALKALINE PHOSPHATASE 73 U/L (46-116); ASPARTATE AMINO TRANSFERASE 16 U/L (15-37); BILIRUBIN,TOTAL 1.3 MG/DL (0.2-1.0)
[2019-12-12 08:45] LABS: BILIRUBIN,DIRECT 0.2 MG/DL (0.0-0.3)
[2019-12-12 08:53] VITALS: BP 166/55
== END 2019-12-12 08:53 | disposition home or self-care (01) ==
LOC: EMR 08:24
DX: R00.2 Palpitations (principal); I10 Essential (primary) hypertension; E11.9 Type 2 diabetes mellitus without complications; Z85.528 Personal history of other malignant neoplasm of kidney; Z90.5 Acquired absence of kidney; Z88.6 Allergy status to analgesic agent; Z88.0 Allergy status to penicillin; Z88.8 Allergy status to other drugs, medicaments and biological substances
CPT/HCPCS: 36415; 71045; 80053; 82248; 84439; 84443; 84481; 84484; 85025; 93005; 99283

== ENCOUNTER 2020-06-25 07:00 | Inpatient (IN) | payer OTHER, MEDICARE ==
[~2020-06-25] VITALS: Ht 167.6 cm; Wt 77.1 kg
--- NOTE | 2020-06-25 07:19 | Emergency Room Report ---
History of Present Illness General Chief Complaint: Hypertension Source: Patient Present Illness HPI Patient is a 74-year-old female presents for increased dizziness. Has prior history of hypertension as well as TIAs in the past. Reports having onset of headache approximately 530 this morning. Patient reports being compliant with her blood pressure medications which include hydralazine, Norvasc, and some o thers. Patient is type II diabetic. She reports having increased difficulty with ambulation. Denies any fever. No vomiting. Allergies: Coded Allergies: DIPHENHYDRAMINE (Verified Allergy, Severe, HEADACHE,, 08/22/18) "FACE TURNS COLOR CADENA" PENICILLINS (Verified Allergy, Severe, SWELLING, 08/22/18) CODEINE (Verified Allergy, Intermediate, GI UPSET,HEADACHE, NAUSEA, 08/22/18) MITCHELL INHIBITORS (Verified Allergy, Unknown, 06/25/20) Tongue Swelling COVID-19 Screening Contact w/high risk pt: No Experienced COVID-19 symptoms?: No COVID-19 Testing performed SERVICES CLERK: No Patient History Past Medical History: see triage record Now: No Reviewed Nursing Documentation: PMH: Agreed; PSxH: Agreed Nursing Documentation-PMH Hx Cardiac Problems: Yes Hx Hypertension: Yes Hx Asthma: No Hx COPD: No Hx Diabetes: Yes Hx Cancer: Yes - Rt. Kidney CA- REMOVED Hx Gastrointestinal Problems: Yes - constipation Hx Dialysis: No Hx Neurological Problems: Yes Hx Cerebrovascular Accident: Yes Hx Seizures: No Review of Systems All Other Systems: negative except mentioned in HPI Physical Exam Vital Signs Date Time Temp Pulse Resp B/P (MAP) Pulse Ox O2 Delivery O2 Flow Rate FiO2 06/25/20 07:02 98.2 85 20 181/61 (101) 98 Sp02 EP Interpretation: reviewed, normal General Appearance: normal inspection, well appearing, no apparent distress, alert, GCS 15 Head: atraumatic ENT: normal ENT inspection, hearing grossly normal, normal voice Neck: normal inspection, full range of motion, supple, no bony tend Respiratory: normal inspection, lungs clear, normal breath sounds, no respiratory distress, no retraction, no wheezing Cardiovascular #1: regular rate, rhythm, no edema Gastrointestinal: normal inspection, normal bowel sounds, non tender, soft, no guarding, no hernia Genitourinary: no CVA tenderness Musculoskeletal: normal inspection, back normal, normal range of motion Neurologic: alert, motor strength/tone normal, measurement technician III-XII nml as tested, oriented x3, responsive, speech normal, normal inspection Psychiatric: normal inspection, judgement/insight normal, mood/affect normal Medical Decision Making Diagnostic Impression: Primary Impression: Hypertensive crisis Additional Impression: Diabetes type 2, uncontrolled ER Course Patient presented for increased dizziness. Differential diagnosis include was not limited to hypoglycemia, hypertensive crisis, transient ischemic attack, CVA, intracranial hemorrhage among others. Because of complexity of patient's case laboratory tests and imaging studies were ordered.CT imaging read by radiology showed right-sided encephalomalacia consistent with old CVA. This is present on patient's prior CTs. patient was initially hypertensive which improv ed prior to medications. She was given medications for dizziness. Patient's blood sugar was adequate.patient was given hydralazine due to hypertension. Patient was discussed with Dr. Glilis who agreed to admit the patient due to primary care physician. Labs Test 06/25/20 07:26 06/26/20 04:58 06/27/20 04:55 06/28/20 05:35 Prothrombin Time 10.8 SEC (9.30-11.50) Prothromb Time International Ratio 1.0 (0.9-1.1) Activated Partial Thromboplast Time 43 SEC (23-33) Total Bilirubin 1.0 MG/DL (0.2-1.0) Aspartate Amino Transf (AST/SGOT) 26 U/L (15-37) Alanine Aminotransferase (ALT/SGPT) 22 U/L (12-78) Alkaline Phosphatase 71 U/L (46-116) Total Protein 7.0 G/DL (6.4-8.2) Albumin 3.6 G/DL (3.4-5.0) Globulin 3.4 g/dL Albumin/Globulin Ratio 1.1 (1.0-2.7) Phosphorus Level 4.1 MG/DL (2.5-4.9) Magnesium Level 2.2 MG/DL (1.8-2.4) Troponin I 0.005 ng/mL (0.000-0.056) White Blood Count 3.9 K/UL (4.8-10.8) Red Blood Count 3.79 M/UL (4.20-5.40) Hemoglobin 11.4 G/DL (12.0-16.0) Hematocrit 34.9 % (37.0-47.0) Mean Corpuscular Volume 92 FL (80-99) Mean Corpuscular Hemoglobin 30.0 PG (27.0-31.0) Mean Corpuscular Hemoglobin Concent 32.6 G/DL (32.0-36.0) Red Cell Distribution Width 12.4 % (11.6-14.8) Platelet Count 217 K/UL (150-450) Mean Platelet Volume 6.2 FL (6.5-10.1) Neutrophils (%) (Auto) 54.0 % (45.0-75.0) Lymphocytes (%) (Auto) 33.5 % (20.0-45.0) Monocytes (%) (Auto) 7.8 % (1.0-10.0) Eosinophils (%) (Auto) 3.7 % (0.0-3.0) Basophils (%) (Auto) 1.0 % (0.0-2.0) Sodium Level 143 MMOL/L (136-145) Potassium Level 3.9 MMOL/L (3.5-5.1) Chloride Level 107 MMOL/L (98-107) Carbon Dioxide Level 29 MMOL/L (21-32) Anion Gap 7 mmol/L (5-15) Blood Urea Nitrogen 24 mg/dL (7-18) Creatinine 1.0 MG/DL (0.55-1.30) Estimat Glomerular Filtration Rate 54.3 mL/min (>60) Glucose Level 120 MG/DL (74-106) Calcium Level 9.3 MG/DL (8.5-10.1) POC Whole Blood Glucose 103 MG/DL (74-106) EKG Diagnostic Results Rate: normal Rhythm: NSR ST Segments: other - Normal sinus rhythm with a rate of [address] or T wave changes some motion artifact is present. Last Vital Signs Date Time Temp Pulse Resp B/P (MAP) Pulse Ox O2 Delivery O2 Flow Rate FiO2 06/25/20 07:02 98.2 85 20 181/61 (101) 98 Status: improved Disposition: ADMITTED INPATIENT Condition: Stable Allan Couch MD Jun 25, 2020 07:19
[2020-06-25] MEDS ORDERED: Meclizine 25mg tab ORAL ONE (07:30)
[2020-06-25 07:38] LABS: BASOPHILS % (AUTO) 0.7 % (0.0-2.0); EOSINOPHILS % (AUTO) 3.3 % (0.0-3.0); HEMATOCRIT 35.4 % (37.0-47.0); HEMOGLOBIN 11.6 G/DL (12.0-16.0); LYMPHOCYTES % (AUTO) 25.3 % (20.0-45.0); MEAN CORPUSCULAR VOLUME 90 FL (80-99); NEUTROPHILS % (AUTO) 63.8 % (45.0-75.0); PLATELET COUNT 236 K/UL (150-450); RED BLOOD COUNT 3.94 M/UL (4.20-5.40); RED CELL DISTRIBUTION WIDTH 12.1 % (11.6-14.8); WHITE BLOOD COUNT 5.7 K/UL (4.8-10.8)
[2020-06-25 07:41] VITALS: BP 138/58
[2020-06-25 07:47] LABS: ANION GAP 10 mmol/L (5-15); BLOOD UREA NITROGEN 26 mg/dL (7-18); CALCIUM 9.1 MG/DL (8.5-10.1); CARBON DIOXIDE 24 MMOL/L (21-32); CHLORIDE 106 MMOL/L (98-107); CREATININE 0.9 MG/DL (0.55-1.30); POTASSIUM 4.2 MMOL/L (3.5-5.1); SODIUM 140 MMOL/L (136-145)
[2020-06-25 07:58] LABS: ALANINE AMINOTRANSFERASE 22 U/L (12-78); ALBUMIN 3.6 G/DL (3.4-5.0); ALBUMIN/GLOBULIN RATIO 1.1 (1.0-2.7); ALKALINE PHOSPHATASE 71 U/L (46-116); ASPARTATE AMINO TRANSFERASE 26 U/L (15-37)
--- NOTE | 2020-06-25 08:07 | Diagnostic Imaging Report ---
EXAM: CT Head Without Intravenous Contrast CLINICAL HISTORY: DIZZY TECHNIQUE: Axial computed tomography images of the head/brain without intravenous contrast. CTDI is 53.40 mGy and DLP is 1098.90 mGy-cm. One or more of the following dose reduction techniques were used: automated exposure control, adjustment of the mA and/or kV according to patient size, use of iterative reconstruction technique. COMPARISON: Brain MRI July 14, 2018. FINDINGS: No acute intracranial hemorrhage. No midline shift or mass effect. Encephalomalacia in the right parieto-occipital lobe, consistent with old infarct. Associated volume loss with ex vacuo dilatation of the right occipital horn. Age-related cerebral volume loss. Periventricular and subcortical white matter hypoattenuation, consistent with chronic microangiopathy. The visualized orbits appear grossly unremarkable. The calvarium is intact. The visualized paranasal sinuses and mastoid air cells are grossly clear. IMPRESSION: No acute intracranial hemorrhage, midline shift, or mass effect. Encephalomalacia in the right parieto-occipital lobe, consistent with old infarct. Associated volume loss with ex vacuo dilatation of the right occipital horn.
[2020-06-25] MEDS ORDERED: Metoclopramide 10mg/2ml Inj IVP ONE (08:15)
[2020-06-25] MEDS ORDERED: Aspirin Baby 81mg ORAL ONE (08:30)
--- NOTE | 2020-06-25 08:40 | NUR ---
Medication note: provider give verbal order to not give ASA alexandre to pt took ASA home
[2020-06-25 10:49] VITALS: BP 183/56
[2020-06-25] MEDS ORDERED: ASPIRIN81 MG ORAL (10:52)
[2020-06-25] MEDS ORDERED: HYDRALAZINE HC100 MG ORAL (10:52)
[2020-06-25] MEDS ORDERED: CARVEDILOL6.25 MG ORAL (10:52)
--- NOTE | 2020-06-25 11:40 | NUR ---
Call to Tele Unit and give report to Yaritza JACOBSON
[2020-06-25 11:41] VITALS: BP 182/56
--- NOTE | 2020-06-25 12:30 | NUR ---
NURSE NOTES: Received report from Yaritza charge master specialist. Vitals as follows 181/74, 98% on RA, 65 hr, 98.1F axillary. no complaint of pain, no distresss, no pain. Bed low and locked. call light placed within reach. contacted Dr porter re hypertension.
--- NOTE | 2020-06-25 12:36 | NUR ---
Patients medication in pharmacy ticket #[id number]
[2020-06-25] MEDS ORDERED: HydrALAZINE 50mg tab ORAL SCH (13:30)
[2020-06-25] MEDS: Aspirin Baby 81mg ORAL SCH (14:00)
[2020-06-25] MEDS ORDERED: Carvedilol 6.25mg Tab ORAL SCH (14:00)
--- NOTE | 2020-06-25 14:43 | NUR ---
NURSE NOTES: Re non admin asprin and amlodapine. Dr. Gillis had continued all meds however pt states she already took these two this morning before coming to ED
[2020-06-25 16:00] VITALS: BP 98/61
[2020-06-25] MEDS: NovoLOG Insulin Flexpen SUBQ SCH ×2 (16:31→20:15)
--- NOTE | 2020-06-25 17:35 | Cardiology Progress Note ---
Assessment/Plan Assessment/Plan [id number] Objective Last 24 Hour Vital Signs Date Time Temp Pulse Resp B/P (MAP) Pulse Ox O2 Delivery O2 Flow Rate FiO2 06/25/20 16:00 98.0 73 18 98/61 (73) 98 06/25/20 16:00 66 06/25/20 14:49 70 181/74 06/25/20 14:48 181/74 06/25/20 13:01 Room Air 06/25/20 12:28 97.3 78 18 178/56 98 Room Air 06/25/20 11:41 97.3 73 14 182/56 97 Room Air 06/25/20 10:49 98.0 77 17 183/56 99 Room Air 06/25/20 09:44 184/58 06/25/20 07:41 98.0 62 18 138/58 98 Room Air 06/25/20 07:41 62 18 Room Air 06/25/20 07:02 98.2 85 20 181/61 (101) 98 Laboratory Tests Test 06/25/20 07:26 White Blood Count 5.7 K/UL (4.8-10.8) Red Blood Count 3.94 M/UL (4.20-5.40) L Hemoglobin 11.6 G/DL (12.0-16.0) L Hematocrit 35.4 % (37.0-47.0) L Mean Corpuscular Volume 90 FL (80-99) Mean Corpuscular Hemoglobin 29.4 PG (27.0-31.0) Mean Corpuscular Hemoglobin Concent 32.7 G/DL (32.0-36.0) Red Cell Distribution Width 12.1 % (11.6-14.8) Platelet Count 236 K/UL (150-450) Mean Platelet Volume 6.2 FL (6.5-10.1) L Neutrophils (%) (Auto) 63.8 % (45.0-75.0) Lymphocytes (%) (Auto) 25.3 % (20.0-45.0) Monocytes (%) (Auto) 7.0 % (1.0-10.0) Eosinophils (%) (Auto) 3.3 % (0.0-3.0) H Basophils (%) (Auto) 0.7 % (0.0-2.0) Prothrombin Time 10.8 SEC (9.30-11.50) Prothromb Time International Ratio 1.0 (0.9-1.1) Activated Partial Thromboplast Time 43 SEC (23-33) H Sodium Level 140 MMOL/L (136-145) Potassium Level 4.2 MMOL/L (3.5-5.1) Chloride Level 106 MMOL/L (98-107) Carbon Dioxide Level 24 MMOL/L (21-32) Anion Gap 10 mmol/L (5-15) Blood Urea Nitrogen 26 mg/dL (7-18) H Creatinine 0.9 MG/DL (0.55-1.30) Estimat Glomerular Filtration Rate > 60 mL/min (>60) Glucose Level 120 MG/DL (74-106) H Calcium Level 9.1 MG/DL (8.5-10.1) Total Bilirubin 1.0 MG/DL (0.2-1.0) Aspartate Amino Transf (AST/SGOT) 26 U/L (15-37) Alanine Aminotransferase (ALT/SGPT) 22 U/L (12-78) Alkaline Phosphatase 71 U/L (46-116) Troponin I 0.006 ng/mL (0.000-0.056) Total Protein 7.0 G/DL (6.4-8.2) Albumin 3.6 G/DL (3.4-5.0) Globulin 3.4 g/dL Albumin/Globulin Ratio 1.1 (1.0-2.7) Stevo Funes MD Jun 25, 2020 17:35
--- NOTE | 2020-06-25 17:54 | History & Physical ---
History and Physical History & Physicial Dictated for Int Med-Dr Gillis no. [id number] Marcos Kelly MD Jun 25, 2020 17:54
[2020-06-25] MEDS: hydroCHLOROthiazide 25mg cap ORAL SCH (18:27)
[2020-06-25] MEDS: HydrALAZINE 50mg tab ORAL SCH (18:27)
--- NOTE | 2020-06-25 18:39 | NUR ---
NURSE HAND-OFF REPORT: Important Events on Shift:[Hypertension uncontrolled since arrival. Discussed at length with Dr. Funes, especially pt stating that she takes both her scheduled 150 TID and 100mg PRN hydralazine for a total of 750mg daily. Medication adjusted to account for uncontrolled hypertension ] Patient Status: [Full code] Diet: [Cardiac Diabetic] Pending Orders: [] Pending Results/Labs:[] Pending MD notification:[] Latest Vital Signs: Temperature 98.0 , Pulse 66 , B/P 150 /62 , Respiratory Rate 18 , O2 SAT 98 , Room Air, O2 Flow Rate . Vital Sign Comment: [Dr. Funes aware of hypertension, PRN ordered ] EKG Rhythm: Sinus Rhythm Rhythm change?: N MD Notified?: - MD Response: Latest Brady Fall Score: 15 Fall Risk: Low Risk Safety Measures: Call light Within Reach, Bed Alarm , Side Rails Side Rails x2, Bed position Low and Locked. Fall Precautions: Patient Fall Education Report given to [Pending RN assignment]. Addendum: 06/25/20 at 1915 by Sujey Valdes RN Report given to Bravo Oseguera RN
--- NOTE | 2020-06-25 19:10 | NUR ---
NURSE NOTES: pt report received from KEY Michele RN. pt is alert and oriented times 4 able to follow simple commands. 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 pt is on room air showing 99% O2. no signs symptoms of resp distress noted. pt bed is low, locked, armed, call light within reach, bed rails up times 3.
[2020-06-25 20:00] VITALS: BP 147/53
[2020-06-25] MEDS: Levemir Flexpen SUBQ SCH (20:14)
[2020-06-25] MEDS: Heparin 5000 units/ml inj SUBQ SCH (20:55)
--- NOTE | 2020-06-25 20:59 | Consultation ---
DATE OF CONSULTATION: 06/25/2020 CARDIOLOGY CONSULTATION REFERRING PHYSICIAN: Kole Gillis M.D. REASON FOR REFERRAL: Hypertension. HISTORY OF PRESENT ILLNESS: This is an elderly female who I have apparently seen back in 2019. I have not seen her since then. She presented to the hospital having gotten up this morning and taking her medication, became nauseated, dizzy, off balance, and confused, and some blurring of the vision, and eventually came to the emergency room, has been admitted to the hospital. She has had some erratic blood pressure readings. This consultation was subsequently requested. The patient absolutely denies any chest pain or pressure, or tightness or heaviness. There is no PND. She uses 2 pillows for comfort. There is no dizziness on standing. Denies any heart pounding or palpitations. PAST MEDICAL HISTORY: Positive for history of diabetes, hypertension. She has a history of renal cell carcinoma. She had the right kidney removed. No cholesterol problems. No hepatitis or tuberculosis. No asthma. No emphysema. No stomach ulcers. No other kidney problems, liver problems, thyroid problems, anemia, arthritis, HIV, AIDS, blood clots, or bleeding disorder. She does have problem with the hypertension. ALLERGIES: She is allergic to penicillin, , MITCHELL inhibitor secondary to tongue swelling, and clonidine. Apparently with the clonidine, she did not have allergic reaction, but did have a headache. REVIEW OF SYSTEMS: GASTROINTESTINAL: Positive for episode of nausea, but no vomiting. No diarrhea. No bloody or black stool. GENITOURINARY: She denies. PULMONARY: She denies. CONSTITUTIONAL: She denies. NEUROLOGIC: Just being off balance and confused earlier today. PHYSICAL EXAMINATION: GENERAL: A middle-aged female, in no acute distress. NECK: Supple. No jugular venous distention. LUNGS: Clear to auscultation and percussion. CARDIAC: S1 is normal. S2 is normal. Regular rate and rhythm. Systolic ejection murmur is noted. ABDOMEN: Soft, nontender. Positive bowel sounds. EXTREMITIES: There is no clubbing or cyanosis, nor is there any edema. NEUROLOGICAL: She is awake, alert, and responsive. LABORATORY AND DIAGNOSTIC DATA: White count of 5.7, hemoglobin 11.6, and platelet count of 236. Sodium 140, potassium 4.2, chloride 106, bicarb 24, BUN of 26, creatinine 0.59, glucose of 120. Troponin 0.06. Liver function tests are normal. Her coags today, INR 1, PTT of 43. Urinalysis shows 5-10 wbc's, 2-4 rbc's, and 2+ leukocyte esterase. Her blood pressure has been in the 170s to 180s over 50s to 70s here. She has been afebrile with the heart rate in the 70s. EKG shows sinus rhythm, normal QRS axis, no ST or T-wave abnormalities. Telemetry shows sinus. She did have a CT scan of her head today that showed no acute intracranial hemorrhage, no midline shift. There is encephalomalacia in the right parieto-occipital lobe consistent with old infarct and age-related volume losses. No other significant abnormalities. ASSESSMENT AND PLAN: 1. Hypertension, poorly controlled. 2. Allergies to multiple medications including MITCHELL inhibitors. 3. Diabetes mellitus. 4. History of renal cell carcinoma, status post removal. 5. Transient neurological symptoms. Dr. Gillis, this patient was seen in cardiac consultation. She has been taking a large amount of hydralazine 250 mg 3 times a day. She is just probably inadvertently taking p.r.n. medications in addition to her medications as her blood pressures have been elevated. She will be continued on the dose of hydralazine 100 mg 3 times a day, Norvasc 10 mg a day. I do agree with starting her on Coreg as she has had a problem with taking clonidine on prior occasions reportedly as well. Because of her reported tongue swelling, she will have a contraindication to taking MITCHELL inhibitors or ARBs and, therefore, very limited medications will be left including her diuretics, which may be appropriate to use at this stage. She should have a renal artery duplex at some point to evaluate for renal artery stenosis and secondary hypertension, and maybe other testing for secondary hypertension that could be done as an outpatient. A low dose of Aldactone can be tried in this setting to see if we can manage her blood pressure since she is very limited in terms of medication. I will adjust her medications as appropriate and I will follow the patient along with you. Stevo Funes M.D. DR: TAYLOR JOB#: [id number] CC:
[2020-06-26] VITALS: BP 144/54
--- NOTE | 2020-06-26 02:24 | Cardiology Report ---
APPROVED REPORT EXAM: Two-dimensional and M-mode echocardiogram with Doppler and color Doppler. INDICATION HTN M-Mode DIMENSIONS IVSd1.7 (0.7-1.1cm)Left Atrium (MM)3.4 (1.6-4.0cm) LVDd4.2 (3.5-5.6cm)Aortic Root2.4 (2.0-3.7cm) PWd1.7 (0.7-1.1cm)Aortic Cusp Exc.1.6 (1.5-2.0cm) IVSs2.7 cm LVDs2.1 (2.5-4.0cm) PWs2.1 cm <Conclusion> Technically difficult study due poor acoustical windows. Normal left ventricular chamber size, HYPERDYNAMIC systolic function and wall motion to extent visualized. Left ventricular ejection fraction estimated to be 70-75%. Mild ventricular hypertrophy. Moderate circulmferential pericardial effusion, no evidence for chamber collapse to suggest tamponad Mild bi-atrial enlargement. Right ventricular chamber size is within normal limits. Calcification of aortic valve with adequate cusp excursion. Thickened mitral valve leaflets with normal excursion. Mitral annulus and aortic root calcification. Pulmonic valve not well visualized. Normal tricuspid valve structure. IVC at normal size with <50% physiologic collapse. A color flow and spectral Doppler study was performed and revealed: No aortic regurgitation. 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 Mitral diastolic velocities suggest reduced left ventricular relaxation c/w mild diastolic dysfunction (Grade I). Mild tricuspid regurgitation. Tricuspid systolic velocities suggests peak right ventricular systolic pressure of 17 mmHg.
--- NOTE | 2020-06-26 02:24 | Cardiology Report ---
APPROVED REPORT EKG Measurement Heart [id number] <Conclusion> Normal sinus rhythm Possible Left atrial enlargement Borderline ECG
[2020-06-26 04:00] VITALS: BP 181/74
[2020-06-26] MEDS: NovoLOG Insulin Flexpen SUBQ SCH ×4 (06:09→20:39)
--- NOTE | 2020-06-26 06:20 | NUR ---
CASE MANAGEMENT:REVIEW 74 YR OLD FEMALE WALKED INTO ER CC: NAUSEA AND HEADACHE SI:HYPERTENSIVE CRISIS 98.3 85 20 181/61 98% ON RA H/H-11.6/35.4 BUN+26 GLUCOSE+120 IS: IV LASIX X1 MECLIZINE PO X1 IV REGLAN X1 ASA PO X1 IV HYDRALAZINE X2 HYDRALAZINE PO X1 CT HEAD : TO TELEMETRY DCP: FROM HOME
[2020-06-26 07:11] LABS: BASOPHILS % (AUTO) 0.7 % (0.0-2.0); EOSINOPHILS % (AUTO) 4.2 % (0.0-3.0); HEMATOCRIT 33.6 % (37.0-47.0); HEMOGLOBIN 11.2 G/DL (12.0-16.0); LYMPHOCYTES % (AUTO) 39.2 % (20.0-45.0); MEAN CORPUSCULAR VOLUME 90 FL (80-99); MONOCYTES % (AUTO) 10.1 % (1.0-10.0); NEUTROPHILS % (AUTO) 45.8 % (45.0-75.0); PLATELET COUNT 207 K/UL (150-450); RED BLOOD COUNT 3.72 M/UL (4.20-5.40); RED CELL DISTRIBUTION WIDTH 12.3 % (11.6-14.8); WHITE BLOOD COUNT 3.8 K/UL (4.8-10.8)
--- NOTE | 2020-06-26 07:27 | NUR ---
NURSE HAND-OFF REPORT: Important Events on Shift:[NA] Patient Status: [unchanged. stable.] Diet: [as per doctor order] Pending Orders: [NA] Pending Results/Labs:[na] Pending MD notification:[NA] Latest Vital Signs: Temperature 99.1 , Pulse 68 , B/P 181 /74 , Respiratory Rate 18 , O2 SAT 94 , Room Air, O2 Flow Rate . Vital Sign Comment: [unchanged. stable] EKG Rhythm: Sinus Rhythm Rhythm change?: N MD Notified?: - MD Response: Latest Brady Fall Score: 15 Fall Risk: Low Risk Safety Measures: Call light Within Reach, Bed Alarm Zone 1, Side Rails Side Rails x3, Bed position Low and Locked. Fall Precautions: Patient Fall Education Report given to [Shameka Hernández RN].
--- NOTE | 2020-06-26 07:28 | NUR ---
NURSE NOTES: Received report from Bravo/RN, Observed patient sitting up in bed, eating breakfast. On room air, No acute distress/SOB noted. Able to make needs known, Denies pain at this time. IV in right FA patent and intact. Bed in low position and locked, Call light within reach. Encouraged to use call light when needed. Will continue plan of care.
[2020-06-26 07:38] LABS: CALCIUM 8.9 MG/DL (8.5-10.1); CREATININE 1.1 MG/DL (0.55-1.30); PHOSPHORUS 4.1 MG/DL (2.5-4.9); POTASSIUM 3.7 MMOL/L (3.5-5.1)
[2020-06-26 08:00] VITALS: BP 158/73
[2020-06-26] MEDS: Aspirin Baby 81mg ORAL SCH (08:36)
[2020-06-26] MEDS: Heparin 5000 units/ml inj SUBQ SCH ×2 (08:36→20:37)
[2020-06-26] MEDS: hydroCHLOROthiazide 25mg cap ORAL SCH (08:36)
[2020-06-26] MEDS: Levemir Flexpen SUBQ SCH ×2 (08:37→20:38)
[2020-06-26] MEDS: HydrALAZINE 50mg tab ORAL SCH ×3 (08:37→17:00)
[2020-06-26] MEDS ORDERED: LORazepam Inj 2mg/ml 1ml IV SCH (09:00)
--- NOTE | 2020-06-26 09:30 | NUR ---
NURSE NOTES: Patient went downstairs for Brain MRI
--- NOTE | 2020-06-26 10:20 | NUR ---
NURSE NOTES: Patient requested to take a shower, got an order for off tele order from Dr. Gillis. But patient unable to take shower at this time because of Ativan. Will continue to monitor
[2020-06-26 12:00] VITALS: BP 171/70
--- NOTE | 2020-06-26 12:39 | Diagnostic Imaging Report ---
Indication: Transient ischemic attack. Vertigo TECHNIQUE: Duplex extracranial carotid and vertebral artery sonography performed with color flow imaging and waveform analysis. Carotid stenosis grading criteria based on the meeting of Society of radiologists in ultrasound consensus conference, February 2002. COMPARISON: None FINDINGS: Right carotid: Grayscale and color-flow imaging demonstrating no hemodynamically significant stenosis within the common carotid artery, extracranial internal carotid artery. Peak systolic and end-diastolic velocities are within normal limits. ICA/CCA ratios are within normal limits. Mild heterogeneous plaques are demonstrated consistent with atherosclerotic disease. Left carotid: Grayscale and color-flow imaging demonstrating no hemodynamically significant stenosis within the common carotid artery, extracranial internal carotid artery. Peak systolic and end-diastolic velocities are within normal limits. ICA/CCA ratios are within normal limits. Mild heterogeneous plaques are demonstrated consistent with atherosclerotic disease. Vertebral arteries: Antegrade flow demonstrated within the right vertebral artery. Left vertebral artery is not visualized. IMPRESSION: No hemodynamically significant extracranial carotid artery stenosis identified. Antegrade flow within the right vertebral artery. Left vertebral artery is not visualized this may potentially be technical.
--- NOTE | 2020-06-26 12:56 | Internal Med Progress Note ---
Subjective Date of Service: Jun 26, 2020 Physician Name Marcos Kelly Attending Physician Kole Gillis MD Current Medications Medications (Trade) Dose Ordered Sig/Caroline Route PRN Reason Start Time Stop Time Status Last Admin Dose Admin Amlodipine Besylate (Norvasc) 10 mg DAILY ORAL 06/25/20 14:00 07/25/20 13:59 06/26/20 08:36 Aspirin (ASA) 81 mg DAILY ORAL 06/25/20 14:00 08/09/20 13:59 06/26/20 08:36 Clonidine HCl (Catapres Tab) 0.1 mg Q4H PRN ORAL SBP > 160mmHg 06/25/20 13:45 09/23/20 13:44 Dextrose (Dextrose 50%) 25 ml Q30M PRN IV Hypoglycemia 06/25/20 13:45 09/23/20 13:44 Dextrose (Dextrose 50%) 50 ml Q30M PRN IV Hypoglycemia 06/25/20 13:45 09/23/20 13:44 Heparin Sodium (Porcine) (Heparin 5000 units/ml) 5,000 units EVERY 12 HOURS SUBQ 06/25/20 21:00 08/09/20 20:59 06/26/20 08:36 Hydralazine HCl (Apresoline) 10 mg Q4H PRN IV Sbp greater than 168 06/25/20 17:45 09/23/20 17:44 Hydralazine HCl (Apresoline) 100 mg TID ORAL 06/25/20 18:00 09/23/20 17:59 06/26/20 08:37 Hydrochlorothiazide (Hydrodiuril) 25 mg DAILY ORAL 06/25/20 17:45 07/25/20 17:44 06/26/20 08:36 Insulin Aspart (NovoLOG) BEFORE MEALS AND HS SUBQ 06/25/20 16:30 09/23/20 16:29 06/25/20 16:31 Insulin Detemir (Levemir) 9 units EVERY 12 HOURS SUBQ 06/25/20 21:00 09/23/20 20:59 06/26/20 08:37 Labetalol HCl (Normodyne) 200 mg Q12HR ORAL 06/25/20 21:00 07/25/20 20:59 06/26/20 08:36 Allergies: Coded Allergies: DIPHENHYDRAMINE (Verified Allergy, Severe, HEADACHE,, 08/22/18) "FACE TURNS COLOR CADENA" PENICILLINS (Verified Allergy, Severe, SWELLING, 08/22/18) CODEINE (Verified Allergy, Intermediate, GI UPSET,HEADACHE, NAUSEA, 08/22/18) MITCHELL INHIBITORS (Verified Allergy, Unknown, 06/25/20) Tongue Swelling ROS Limited/Unobtainable: No HEENT: Reports: no symptoms Cardiovascular: Reports: no symptoms Respiratory: Reports: no symptoms Gastrointestinal/Abdominal: Reports: no symptoms Genitourinary: Reports: no symptoms Neurologic/Psychiatric: Reports: no symptoms Subjective 74 YO F with H/O cerebral vascular accident admitted with vertigo. Cover for Int Ryan-DR Gillis Objective Last Vital Signs Date Time Temp Pulse Resp B/P (MAP) Pulse Ox O2 Delivery O2 Flow Rate FiO2 06/26/20 12:00 96.7 60 18 171/70 (103) 98 06/26/20 09:00 Room Air General Appearance: WD/WN, no apparent distress, alert EENT: PERRL/EOMI, normal ENT inspection Neck: non-tender, normal alignment, supple, normal inspection Cardiovascular: normal peripheral pulses, normal rate, regular rhythm, no gallop/murmur, no JVD Respiratory/Chest: chest wall non-tender, lungs clear, normal breath sounds, no respiratory distress, no accessory muscle use Abdomen: normal bowel sounds, non tender, soft, no organomegaly, no mass Extremities: normal range of motion, non-tender Neurologic: patent legal assistant II-XII grossly normal, no motor/sensory deficits Skin: normal pigmentation, warm/dry Laboratory Tests Test 06/25/20 20:14 06/26/20 04:58 06/26/20 06:08 06/26/20 08:34 POC Whole Blood Glucose 78 MG/DL (74-106) 113 MG/DL (74-106) H Pending White Blood Count 3.8 K/UL (4.8-10.8) L Red Blood Count 3.72 M/UL (4.20-5.40) L Hemoglobin 11.2 G/DL (12.0-16.0) L Hematocrit 33.6 % (37.0-47.0) L Mean Corpuscular Volume 90 FL (80-99) Mean Corpuscular Hemoglobin 30.2 PG (27.0-31.0) Mean Corpuscular Hemoglobin Concent 33.4 G/DL (32.0-36.0) Red Cell Distribution Width 12.3 % (11.6-14.8) Platelet Count 207 K/UL (150-450) Mean Platelet Volume 6.5 FL (6.5-10.1) Neutrophils (%) (Auto) 45.8 % (45.0-75.0) Lymphocytes (%) (Auto) 39.2 % (20.0-45.0) Monocytes (%) (Auto) 10.1 % (1.0-10.0) H Eosinophils (%) (Auto) 4.2 % (0.0-3.0) H Basophils (%) (Auto) 0.7 % (0.0-2.0) Sodium Level 142 MMOL/L (136-145) Potassium Level 3.7 MMOL/L (3.5-5.1) Chloride Level 107 MMOL/L (98-107) Carbon Dioxide Level 27 MMOL/L (21-32) Anion Gap 8 mmol/L (5-15) Blood Urea Nitrogen 30 mg/dL (7-18) H Creatinine 1.1 MG/DL (0.55-1.30) Estimat Glomerular Filtration Rate 48.7 mL/min (>60) Glucose Level 108 MG/DL (74-106) H Calcium Level 8.9 MG/DL (8.5-10.1) Phosphorus Level 4.1 MG/DL (2.5-4.9) Magnesium Level 2.2 MG/DL (1.8-2.4) Troponin I 0.005 ng/mL (0.000-0.056) Test 06/26/20 11:51 POC Whole Blood Glucose Pending Intake and Output 06/25/20 06/26/20 19:00 07:00 Output Total 150 ml Balance -150 ml Output Urine Total 150 ml # Voids 1 # Bowel Movements 1 Assessment/Plan Problem List: (1) Atherosclerotic cerebrovascular disease (2) Diabetes type 2, uncontrolled Assessment & Plan: Continue labetol, hydralazine and HCTZ per cardiology=Dr Funes (3) Renal cell carcinoma (4) Accelerated hypertension (5) Vertigo Assessment & Plan: Await MRI brain to R/O acute CVA. ECHO and carotid duplex doppler Marcos Sanders MD Jun 26, 2020 12:56
--- NOTE | 2020-06-26 13:58 | Diagnostic Imaging Report ---
Indication: Headache starting approximately 5:30 the previous morning, hypertension, increased difficulty with ambulation Technique: sagittal T1 fast spin echo, axial T1 FLAIR, axial T2 FLAIR, axial T2 FS PROPELLER, axial T2* GRE, axial diffusion weighted images. ADC and exponential ADC maps generated Comparison: MRI dated 07/14/2018. CT scan dated 06/25/2020 Findings: Area of encephalomalacia in the right posterior temporal lobe is again demonstrated. No abnormal areas of restricted diffusion to suggest acute infarction. No acute hemorrhage or edema. No mass effect nor midline shift. There is age-related enlargement of the ventricles and extra axial CSF spaces. There is some periventricular high T2 signal.. Visualized orbits and sinuses are unremarkable. Findings are overall unchanged from earlier studies Impression: Negative for acute intracranial bleed, mass effect, or infarct. Old right temporal infarct, also previously reported Other chronic and age-related changes
--- NOTE | 2020-06-26 14:29 | History and Physical Report ---
CHIEF COMPLAINT: The patient is a 74-year-old female who presents with a chief complaint of "I feel dizzy." HISTORY OF PRESENT ILLNESS: Began this morning about 5 a.m. The patient began to experience dizziness. The patient denies nausea or vomiting. The patient describes the dizziness as room spinning. The patient also complains of headache since this morning. The patient presented to [facility]. The patient is admitted with dizziness to rule out acute coronary syndrome versus transient ischemic attack. REVIEW OF SYSTEMS: CONSTITUTIONAL: The patient denies weight loss or gain. The patient denies fevers or chills. HEENT: The patient denies ear or throat pain. The patient denies headache. CARDIOVASCULAR: The patient denies palpitations or chest pain. CHEST: The patient shortness of breath. ABDOMINAL: The patient denies nausea, vomiting, diarrhea, or constipation. GENITOURINARY: The patient denies dysuria or increased frequency of urination. NEUROMUSCULAR: The patient complains of dizziness as above. The patient denies seizures or generalized weakness. PAST MEDICAL HISTORY: Significant for: 1. Type 2 diabetes. 2. Hypertension. 3. History of right renal cell cancer. 4. History of cerebrovascular disease. PAST SURGICAL HISTORY: 1. Significant for right hip total arthroplasty in 2013. 2. Right nephrectomy in 2014. CURRENT MEDICATIONS: 1. Amlodipine 10 mg 1 tablet p.o. daily. 2. Aspirin 81 mg 1 tablet p.o. daily. 3. Carvedilol 6.25 mg p.o. twice daily. 4. Hydralazine 150 mg p.o. 3 times daily. 5. Hydralazine 100 mg p.o. 3 times daily p.r.n. 6. Degludec insulin 24 units subcutaneously at bedtime. ALLERGIES: 1. MITCHELL inhibitors. 2. Codeine. 3. Diphenhydramine. 4. Penicillin. SOCIAL HISTORY: The patient is single and lives alone. The patient denies tobacco or alcohol use. PHYSICAL EXAMINATION: VITAL SIGNS: Temperature 98.2, respirations 20, pulse 85, blood pressure 181/61. GENERAL: The patient is well-developed, well-nourished female, in no apparent distress. HEENT: Eyes, pupils are equal and responsive to light and accommodation. Extraocular muscles are intact. NECK: Supple without lymphadenopathy. CHEST: Lungs are clear to auscultation bilaterally without wheezes or rales. CARDIOVASCULAR: Regular rhythm and rate. S1, S2 normal without murmurs, rubs, or gallops. ABDOMEN: Soft, nontender, nondistended. Positive bowel sounds. No evidence of hepatosplenomegaly. Currently, no rebound or guarding noted. EXTREMITIES: Negative for clubbing, cyanosis, or edema. RECTAL/GENITAL: Not performed. NEUROLOGIC: Cranial nerves II through XII are grossly intact without focal deficits. Motor strength is 5/5 bilaterally. Deep tendon reflexes are 2+ plantar. A CT scan of the brain was reported as within normal limits. LABORATORY STUDIES: WBC 5.7, hemoglobin 11.6, hematocrit 35.4, platelets 236,000. Sodium 140, potassium 4.2, chloride 106, CO2 of 24, BUN 26, creatinine 0.9. Glucose 120. ASSESSMENT: This is a 74-year-old female. 1. Vertigo. 2. History of cerebrovascular accident. 3. Diabetes type 2. 4. Hypertension. 5. Renal cell cancer. PLAN: 1. Vertigo, may be secondary for acute cerebrovascular accident. An initial CAT scan of the brain was reported as within normal limits. An MRI of the brain is pending. A Cardiology consultation has been obtained with Dr. Stevo Funes. Follow recommendations of Cardiology. 2. Diabetes type 2. A NovoLog sliding scale has been instituted. Degludec is nonformulary at [facility]. Start Levemir in place of degludec. 3. Hypertension. Hypertension is currently uncontrolled. The patient is currently receiving hydralazine p.r.n. As above, a Cardiology consultation has been obtained with Dr. Stevo Funes. Follow recommendations of Cardiology. 4. History of renal cell cancer, status post resection. Marcos Kelly M.D. DR: SANDI JOB#: [id number] CC:
[2020-06-26 16:00] VITALS: BP 159/80
--- NOTE | 2020-06-26 16:00 | NUR ---
NURSE NOTES: Patient has been sleeping most of the day, denies pain, Breathing even and unlabored, no acute distress noted. Will continue to monitor.
--- NOTE | 2020-06-26 19:07 | NUR ---
NURSE HAND-OFF REPORT: Important Events on Shift:Patient had MRI of Brain Patient Status: Full code Diet: Cardiac Pending Orders: N/A Pending Results/Labs:Morning labs Pending MD notification:N/A Latest Vital Signs: Temperature 96.8 , Pulse 83 , B/P 159 /80 , Respiratory Rate 19 , O2 SAT 97 , Room Air, O2 Flow Rate . Vital Sign Comment: hypertensive EKG Rhythm: Sinus Rhythm Rhythm change?: N MD Notified?: - MD Response: Latest Brady Fall Score: 15 Fall Risk: Low Risk Safety Measures: Call light Within Reach, Bed Alarm Zone 1, Side Rails Side Rails x3, Bed position Low and Locked. Fall Precautions: Patient Fall Education Report given to Yessy/KAVON.
--- NOTE | 2020-06-26 19:12 | NUR ---
NURSE NOTES: Received report from KAVON Myles. Pt seen sitting up in bed and watching TV. Pt is A/O x4 and verbally responsive. Pt has no SOB or acute distress. No pain noted at this time. Pt has a IV in RFA 22G which is patent and intact. Bed in low position and locked with side rails x2. Call light placed within reach. Will continue plan of care.
--- NOTE | 2020-06-26 19:49 | Cardiology Progress Note ---
Assessment/Plan Assessment/Plan 1. Hypertension, poorly controlled. 2. Allergies to multiple medications including MITCHELL inhibitors. 3. Diabetes mellitus. 4. History of renal cell carcinoma, status post removal. 5. Transient neurological symptoms. bp improved but not perfect yet tele personally reviewed sinus 70's now will increase labetolol to 200 mg bid while observing on tele trops neg Subjective Cardiovascular: Denies: chest pain, irregular heart rate, lightheadedness, palpitations Respiratory: Denies: shortness of breath Gastrointestinal/Abdominal: Denies: abdominal pain Genitourinary: Denies: burning Objective Last 24 Hour Vital Signs Date Time Temp Pulse Resp B/P (MAP) Pulse Ox O2 Delivery O2 Flow Rate FiO2 06/26/20 17:00 159/80 06/26/20 16:00 73 06/26/20 16:00 96.8 83 19 159/80 (106) 97 06/26/20 13:20 171/70 06/26/20 12:00 56 06/26/20 12:00 96.7 60 18 171/70 (103) 98 06/26/20 09:40 68 20 158/73 94 06/26/20 09:10 68 20 158/73 94 06/26/20 09:00 Room Air 06/26/20 08:37 158/73 06/26/20 08:36 68 158/73 06/26/20 08:36 68 158/73 06/26/20 08:00 64 06/26/20 08:00 98.2 68 20 158/73 (101) 94 06/26/20 04:00 99.1 68 18 181/74 (109) 94 06/26/20 04:00 61 06/26/20 00:00 99.9 64 18 144/54 (84) 98 06/26/20 00:00 66 06/25/20 21:00 Room Air 06/25/20 20:54 68 118/68 06/25/20 20:00 66 06/25/20 20:00 97.6 86 18 147/53 (84) 99 General Appearance: no apparent distress, alert Neck: supple Cardiovascular: normal rate Respiratory/Chest: lungs clear Abdomen: normal bowel sounds, non tender, soft Extremities: no swelling Intake and Output 06/25/20 06/26/20 19:00 07:00 Output Total 150 ml Balance -150 ml Output Urine Total 150 ml # Voids 1 # Bowel Movements 1 Laboratory Tests Test 06/25/20 20:14 06/26/20 04:58 06/26/20 06:08 06/26/20 08:34 POC Whole Blood Glucose 78 MG/DL (74-106) 113 MG/DL (74-106) H Pending White Blood Count 3.8 K/UL (4.8-10.8) L Red Blood Count 3.72 M/UL (4.20-5.40) L Hemoglobin 11.2 G/DL (12.0-16.0) L Hematocrit 33.6 % (37.0-47.0) L Mean Corpuscular Volume 90 FL (80-99) Mean Corpuscular Hemoglobin 30.2 PG (27.0-31.0) Mean Corpuscular Hemoglobin Concent 33.4 G/DL (32.0-36.0) Red Cell Distribution Width 12.3 % (11.6-14.8) Platelet Count 207 K/UL (150-450) Mean Platelet Volume 6.5 FL (6.5-10.1) Neutrophils (%) (Auto) 45.8 % (45.0-75.0) Lymphocytes (%) (Auto) 39.2 % (20.0-45.0) Monocytes (%) (Auto) 10.1 % (1.0-10.0) H Eosinophils (%) (Auto) 4.2 % (0.0-3.0) H Basophils (%) (Auto) 0.7 % (0.0-2.0) Sodium Level 142 MMOL/L (136-145) Potassium Level 3.7 MMOL/L (3.5-5.1) Chloride Level 107 MMOL/L (98-107) Carbon Dioxide Level 27 MMOL/L (21-32) Anion Gap 8 mmol/L (5-15) Blood Urea Nitrogen 30 mg/dL (7-18) H Creatinine 1.1 MG/DL (0.55-1.30) Estimat Glomerular Filtration Rate 48.7 mL/min (>60) Glucose Level 108 MG/DL (74-106) H Calcium Level 8.9 MG/DL (8.5-10.1) Phosphorus Level 4.1 MG/DL (2.5-4.9) Magnesium Level 2.2 MG/DL (1.8-2.4) Troponin I 0.005 ng/mL (0.000-0.056) Test 06/26/20 11:51 06/26/20 16:54 POC Whole Blood Glucose Pending 166 MG/DL (74-106) H Stevo Funse MD Jun 26, 2020 19:49
[2020-06-26 20:00] VITALS: BP 180/72
--- NOTE | 2020-06-26 20:40 | NUR ---
NURSE NOTES: Pt BS was 94 and Levemir held as stated if BS <100 to hold. Informed and educated pt regarding her BS and the insulin that was suppose to be provided. Pt acknowledged and agreed.
[2020-06-27] VITALS: BP 150/61
[2020-06-27 04:00] VITALS: BP 149/64
[2020-06-27] MEDS: NovoLOG Insulin Flexpen SUBQ SCH ×4 (05:35→20:26)
--- NOTE | 2020-06-27 06:25 | NUR ---
CASE MANAGEMENT:REVIEW 06/27/20 SI: POORLY CONTROLLED HYPERTENSION. DM H/O RENAL CELL CARCINOMA, S/P REMOVAL 98.1 73 18 149/64 96% ON RA LABS PENDING AT THIS TIME IS: LABETALOL 300MG PO Q12 LEVEMIR SQ Q12 HEPARIN SQ Q12 HYDRALAZINE PO TID HCTZ PO QD ASA PO QD NORVASC PO QD : TELEMETRY STATUS DCP: FROM HOME PLAN: INCREASE LABETALOL DOSE FROM 200MG Q12 TO 300MG Q12
[2020-06-27 06:33] LABS: EOSINOPHILS % (AUTO) 3.7 % (0.0-3.0); HEMATOCRIT 34.9 % (37.0-47.0); HEMOGLOBIN 11.4 G/DL (12.0-16.0); LYMPHOCYTES % (AUTO) 33.5 % (20.0-45.0); MEAN CORPUSCULAR VOLUME 92 FL (80-99); MONOCYTES % (AUTO) 7.8 % (1.0-10.0); PLATELET COUNT 217 K/UL (150-450); RED BLOOD COUNT 3.79 M/UL (4.20-5.40); RED CELL DISTRIBUTION WIDTH 12.4 % (11.6-14.8); WHITE BLOOD COUNT 3.9 K/UL (4.8-10.8)
[2020-06-27 06:45] LABS: CALCIUM 9.3 MG/DL (8.5-10.1); POTASSIUM 3.9 MMOL/L (3.5-5.1)
--- NOTE | 2020-06-27 06:46 | NUR ---
NURSE HAND-OFF REPORT: Important Events on Shift: Stable but BP medication changed. Patient Status: Stable Diet: Cardiac Pending Orders: Pending Results/Labs: Pending MD notification: Latest Vital Signs: Temperature 98.1 , Pulse 73 , B/P 149 /64 , Respiratory Rate 18 , O2 SAT 96 , Room Air, O2 Flow Rate . Vital Sign Comment: EKG Rhythm: Sinus Rhythm Rhythm change?: N MD Notified?: - MD Response: Latest Brady Fall Score: 20 Fall Risk: Low Risk Safety Measures: Call light Within Reach, Bed Alarm Zone 1, Side Rails Side Rails x2, Bed position Low and Locked. Fall Precautions: Patient Fall Education Report given to
--- NOTE | 2020-06-27 07:05 | NUR ---
NURSE NOTES: Received report from Yessy/RN, Observed patient sitting up in bed, watching TV. AAO x4. On room air, No acute distress/SOB noted. Able to make needs known, Denies pain at this time. IV in right FA patent and intact. Bed in low position and locked, Call light within reach. Encouraged to use call light when needed. Will continue plan of care.
[2020-06-27 08:00] VITALS: BP 155/56
[2020-06-27] MEDS: Aspirin Baby 81mg ORAL SCH (08:27)
[2020-06-27] MEDS: hydroCHLOROthiazide 25mg cap ORAL SCH (08:28)
[2020-06-27] MEDS: HydrALAZINE 50mg tab ORAL SCH ×3 (08:28→18:22)
[2020-06-27] MEDS: Heparin 5000 units/ml inj SUBQ SCH ×2 (08:29→20:25)
[2020-06-27] MEDS: Levemir Flexpen SUBQ SCH ×2 (08:43→20:27)
[2020-06-27 12:00] VITALS: BP 156/56
--- NOTE | 2020-06-27 12:06 | NUR ---
INSURANCE CLINICALS/REVIEWS FAXED TO [facility] [phone]
[2020-06-27 16:00] VITALS: BP 158/55
[2020-06-27] MEDS ORDERED: WOMEN'S 50 PLU1 EACH PO (16:20)
--- NOTE | 2020-06-27 17:28 | Internal Med Progress Note ---
Subjective Physician Name Kole Gillis Attending Physician Kole Gillis MD Current Medications Medications (Trade) Dose Ordered Sig/Caroline Route PRN Reason Start Time Stop Time Status Last Admin Dose Admin Amlodipine Besylate (Norvasc) 10 mg DAILY ORAL 06/25/20 14:00 07/25/20 13:59 06/27/20 08:28 Aspirin (ASA) 81 mg DAILY ORAL 06/25/20 14:00 08/09/20 13:59 06/27/20 08:27 Clonidine HCl (Catapres Tab) 0.1 mg Q4H PRN ORAL SBP > 160mmHg 06/25/20 13:45 09/23/20 13:44 Dextrose (Dextrose 50%) 25 ml Q30M PRN IV Hypoglycemia 06/25/20 13:45 09/23/20 13:44 Dextrose (Dextrose 50%) 50 ml Q30M PRN IV Hypoglycemia 06/25/20 13:45 09/23/20 13:44 Heparin Sodium (Porcine) (Heparin 5000 units/ml) 5,000 units EVERY 12 HOURS SUBQ 06/25/20 21:00 08/09/20 20:59 06/27/20 08:29 Hydralazine HCl (Apresoline) 10 mg Q4H PRN IV Sbp greater than 168 06/25/20 17:45 09/23/20 17:44 Hydralazine HCl (Apresoline) 100 mg TID ORAL 06/25/20 18:00 09/23/20 17:59 06/27/20 12:08 Hydrochlorothiazide (Hydrodiuril) 25 mg DAILY ORAL 06/25/20 17:45 07/25/20 17:44 06/27/20 08:28 Insulin Aspart (NovoLOG) BEFORE MEALS AND HS SUBQ 06/25/20 16:30 09/23/20 16:29 06/26/20 17:00 Insulin Detemir (Levemir) 9 units EVERY 12 HOURS SUBQ 06/25/20 21:00 09/23/20 20:59 06/27/20 08:43 Labetalol HCl (Normodyne) 300 mg Q12HR ORAL 06/26/20 21:00 07/26/20 20:59 06/27/20 08:28 Allergies: Coded Allergies: DIPHENHYDRAMINE (Verified Allergy, Severe, HEADACHE,, 08/22/18) "FACE TURNS COLOR CADENA" PENICILLINS (Verified Allergy, Severe, SWELLING, 08/22/18) CODEINE (Verified Allergy, Intermediate, GI UPSET,HEADACHE, NAUSEA, 08/22/18) MITCHELL INHIBITORS (Verified Allergy, Unknown, 06/25/20) Tongue Swelling Subjective awake, alert, responsive, No chest pain or SOB Objective Last Vital Signs Date Time Temp Pulse Resp B/P (MAP) Pulse Ox O2 Delivery O2 Flow Rate FiO2 06/27/20 16:00 98.6 77 19 158/55 (89) 95 06/27/20 09:00 Room Air Laboratory Tests Test 06/26/20 20:17 06/27/20 04:55 06/27/20 05:26 06/27/20 08:25 POC Whole Blood Glucose 94 MG/DL (74-106) 127 MG/DL (74-106) H Pending White Blood Count 3.9 K/UL (4.8-10.8) L Red Blood Count 3.79 M/UL (4.20-5.40) L Hemoglobin 11.4 G/DL (12.0-16.0) L Hematocrit 34.9 % (37.0-47.0) L Mean Corpuscular Volume 92 FL (80-99) Mean Corpuscular Hemoglobin 30.0 PG (27.0-31.0) Mean Corpuscular Hemoglobin Concent 32.6 G/DL (32.0-36.0) Red Cell Distribution Width 12.4 % (11.6-14.8) Platelet Count 217 K/UL (150-450) Mean Platelet Volume 6.2 FL (6.5-10.1) L Neutrophils (%) (Auto) 54.0 % (45.0-75.0) Lymphocytes (%) (Auto) 33.5 % (20.0-45.0) Monocytes (%) (Auto) 7.8 % (1.0-10.0) Eosinophils (%) (Auto) 3.7 % (0.0-3.0) H Basophils (%) (Auto) 1.0 % (0.0-2.0) Sodium Level 143 MMOL/L (136-145) Potassium Level 3.9 MMOL/L (3.5-5.1) Chloride Level 107 MMOL/L (98-107) Carbon Dioxide Level 29 MMOL/L (21-32) Anion Gap 7 mmol/L (5-15) Blood Urea Nitrogen 24 mg/dL (7-18) H Creatinine 1.0 MG/DL (0.55-1.30) Estimat Glomerular Filtration Rate 54.3 mL/min (>60) Glucose Level 120 MG/DL (74-106) H Calcium Level 9.3 MG/DL (8.5-10.1) Test 06/27/20 11:58 06/27/20 16:54 POC Whole Blood Glucose 101 MG/DL (74-106) 102 MG/DL (74-106) Intake and Output 06/26/20 06/27/20 19:00 07:00 Intake Total 140 ml 920 ml Balance 140 ml 920 ml Intake Oral 140 ml 920 ml Objective General: No acute distress, awake and alert HEENT: NCAT, sclera anicteric, PERRL, EOMI. Neck: Supple, no significant jugular venous distention, Lungs: Good inspiratory effort, no accessory muscle use, no Wheeze or Rales. Heart: Regular rate and rhythm, normal S1/S2, no murmur. Abdomen: soft, nontender, nondistended. Normoactive bowel sounds. / Rectal: Refused and deferred. Extremities: No Cyanosis , clubbing or edema. Neuro: A&O x 3, Able to move all extremities Skin: warm, no rashes or lesions Psych: Normal mood and affect Assessment/Plan Assessment/Plan Problem List: (1) Atherosclerotic cerebrovascular disease (2) Diabetes type 2, uncontrolled Assessment & Plan: Continue labetol, hydralazine and HCTZ per cardiology=Dr Funes (3) Renal cell carcinoma (4) Accelerated hypertension (5) Vertigo Assessment & Plan: MRI brain noted no acute finding. ECHO and carotid duplex Doppler neg DC home in AM. Kole Gillis MD Jun 27, 2020 17:27
--- NOTE | 2020-06-27 18:55 | Cardiology Progress Note ---
Assessment/Plan Assessment/Plan 1. Hypertension, poorly controlled. 2. Allergies to multiple medications including MITCHELL inhibitors. 3. Diabetes mellitus. 4. History of renal cell carcinoma, status post removal. 5. Transient neurological symptoms. bp improved but not perfect yet tele personally reviewed sinus 70's now no on labetolol to 300 mg bid seem adequate control for now fine tune as outopt villarreal for secondary htn as outpt trops neg dc meds labetolol 300 mg bid , hydralazine 100 mg tid, norvasc 5 mg daily Subjective Cardiovascular: Denies: chest pain, lightheadedness, palpitations Respiratory: Denies: shortness of breath Gastrointestinal/Abdominal: Denies: abdominal pain Genitourinary: Denies: burning Objective Last 24 Hour Vital Signs Date Time Temp Pulse Resp B/P (MAP) Pulse Ox O2 Delivery O2 Flow Rate FiO2 06/27/20 18:22 158/55 06/27/20 16:00 74 06/27/20 16:00 98.6 77 19 158/55 (89) 95 06/27/20 12:08 156/56 06/27/20 12:00 97.7 62 19 156/56 (89) 95 06/27/20 12:00 64 06/27/20 09:00 Room Air 06/27/20 08:28 68 155/56 06/27/20 08:28 155/56 06/27/20 08:28 68 155/56 06/27/20 08:00 97.9 68 18 155/56 (89) 96 06/27/20 08:00 66 06/27/20 04:00 73 06/27/20 04:00 98.1 73 18 149/64 (92) 96 06/27/20 00:00 68 06/27/20 00:00 98.0 61 18 150/61 (90) 95 06/26/20 21:00 Room Air 06/26/20 20:35 79 180/96 06/26/20 20:00 68 06/26/20 20:00 98.0 83 20 180/72 (108) 97 General Appearance: no apparent distress, alert Neck: supple Cardiovascular: normal rate Respiratory/Chest: lungs clear, normal breath sounds Abdomen: normal bowel sounds, non tender, soft Extremities: no swelling Intake and Output 06/26/20 06/27/20 19:00 07:00 Intake Total 140 ml 920 ml Balance 140 ml 920 ml Intake Oral 140 ml 920 ml Laboratory Tests Test 06/26/20 20:17 06/27/20 04:55 06/27/20 05:26 06/27/20 08:25 POC Whole Blood Glucose 94 MG/DL (74-106) 127 MG/DL (74-106) H Pending White Blood Count 3.9 K/UL (4.8-10.8) L Red Blood Count 3.79 M/UL (4.20-5.40) L Hemoglobin 11.4 G/DL (12.0-16.0) L Hematocrit 34.9 % (37.0-47.0) L Mean Corpuscular Volume 92 FL (80-99) Mean Corpuscular Hemoglobin 30.0 PG (27.0-31.0) Mean Corpuscular Hemoglobin Concent 32.6 G/DL (32.0-36.0) Red Cell Distribution Width 12.4 % (11.6-14.8) Platelet Count 217 K/UL (150-450) Mean Platelet Volume 6.2 FL (6.5-10.1) L Neutrophils (%) (Auto) 54.0 % (45.0-75.0) Lymphocytes (%) (Auto) 33.5 % (20.0-45.0) Monocytes (%) (Auto) 7.8 % (1.0-10.0) Eosinophils (%) (Auto) 3.7 % (0.0-3.0) H Basophils (%) (Auto) 1.0 % (0.0-2.0) Sodium Level 143 MMOL/L (136-145) Potassium Level 3.9 MMOL/L (3.5-5.1) Chloride Level 107 MMOL/L (98-107) Carbon Dioxide Level 29 MMOL/L (21-32) Anion Gap 7 mmol/L (5-15) Blood Urea Nitrogen 24 mg/dL (7-18) H Creatinine 1.0 MG/DL (0.55-1.30) Estimat Glomerular Filtration Rate 54.3 mL/min (>60) Glucose Level 120 MG/DL (74-106) H Calcium Level 9.3 MG/DL (8.5-10.1) Test 06/27/20 11:58 06/27/20 16:54 POC Whole Blood Glucose 101 MG/DL (74-106) 102 MG/DL (74-106) Stevo Funes MD Jun 27, 2020 18:55
--- NOTE | 2020-06-27 19:00 | NUR ---
NURSE NOTES: Received report from KAVON Myles. AAOx4, able to communicate needs. On room air, saturating well. Not in acute distress. IV site intact and flushed; no IVF running at this time. No complaints of pain or discomfort at this time. Bed in lowest position, brakes engaged and bed alarm on. Call light placed within reach. Will continue to monitor.
--- NOTE | 2020-06-27 19:02 | NUR ---
NURSE HAND-OFF REPORT: Important Events on Shift:N/A Patient Status: Full code Diet: Cardiac Pending Orders: N/A Pending Results/Labs:N/A Pending MD notification:N/A Latest Vital Signs: Temperature 98.6 , Pulse 74 , B/P 158 /55 , Respiratory Rate 19 , O2 SAT 95 , Room Air, O2 Flow Rate . Vital Sign Comment: Hypertensive EKG Rhythm: Sinus Rhythm Rhythm change?: N MD Notified?: - MD Response: Latest Brady Fall Score: 20 Fall Risk: Low Risk Safety Measures: Call light Within Reach, Bed Alarm Zone 1, Side Rails Side Rails x2, Bed position Low and Locked. Fall Precautions: Patient Fall Education Report given to Finesse/KAVON.
[2020-06-27 20:00] VITALS: BP 177/68
[2020-06-28] VITALS: BP 162/59
--- NOTE | 2020-06-28 00:10 | NUR ---
NURSE NOTES: Pt given clonidine per standing order for SBP 162. No complaints of headache or double vision. Pt went back to sleep after administration. Will continue to monitor BP throughout the shift.
[2020-06-28 04:00] VITALS: BP 146/57
[2020-06-28] MEDS: NovoLOG Insulin Flexpen SUBQ SCH ×2 (05:47→11:30)
--- NOTE | 2020-06-28 07:15 | NUR ---
NURSE HAND-OFF REPORT: Important Events on Shift:[episode of hypertension during the shift; Clonidine PRN given once during the shift; no complaints of pain, headache, or double vision; no dizziness.] Patient Status: [full code] Diet: [cardiac] Pending Orders: [] Pending Results/Labs:[] Pending MD notification:[] Latest Vital Signs: Temperature 97.5 , Pulse 68 , B/P 146 /57 , Respiratory Rate 18 , O2 SAT 95 , Room Air, O2 Flow Rate . Vital Sign Comment: [] EKG Rhythm: Sinus Rhythm Rhythm change?: N MD Notified?: - MD Response: Latest Brady Fall Score: 20 Fall Risk: Low Risk Safety Measures: Call light Within Reach, Bed Alarm Zone 1, Side Rails Side Rails x2, Bed position Low and Locked. Fall Precautions: Yellow Socks Patient Fall Education Report given to [KAVON Olson].
--- NOTE | 2020-06-28 07:15 | NUR ---
NURSE NOTES: Received hand-off report from Finesse Crowley RN. Patient in stable condition, alert and oriented x4, able to verbalize needs well, breathing even and unlabored on room air. Tolerating breakfast well, no aspiration noted. Bed in lowest and locked position, bed alarm on, call light within reach, glaze wiper in place, bed rails upx2.
[2020-06-28 08:00] VITALS: BP 156/58
[2020-06-28] MEDS: hydroCHLOROthiazide 25mg cap ORAL SCH (08:18)
[2020-06-28] MEDS: Aspirin Baby 81mg ORAL SCH (08:18)
[2020-06-28] MEDS: HydrALAZINE 50mg tab ORAL SCH ×2 (08:20→12:39)
[2020-06-28] MEDS: Heparin 5000 units/ml inj SUBQ SCH (08:25)
[2020-06-28] MEDS: Levemir Flexpen SUBQ SCH (08:27)
[2020-06-28 12:00] VITALS: BP 147/63
[2020-06-28 12:39] VITALS: BP 147/63
[2020-06-28] MEDS ORDERED: HYDROCHLOROTHIA25 MG ORAL (14:01)
--- NOTE | 2020-06-28 14:06 | Internal Med Progress Note ---
Subjective Physician Name Kole Gillis Attending Physician Kole Gillis MD Current Medications Medications (Trade) Dose Ordered Sig/Caroline Route PRN Reason Start Time Stop Time Status Last Admin Dose Admin Amlodipine Besylate (Norvasc) 10 mg DAILY ORAL 06/25/20 14:00 07/25/20 13:59 06/28/20 08:18 Aspirin (ASA) 81 mg DAILY ORAL 06/25/20 14:00 08/09/20 13:59 06/28/20 08:18 Clonidine HCl (Catapres Tab) 0.1 mg Q4H PRN ORAL SBP > 160mmHg 06/25/20 13:45 09/23/20 13:44 06/28/20 00:07 Dextrose (Dextrose 50%) 25 ml Q30M PRN IV Hypoglycemia 06/25/20 13:45 09/23/20 13:44 Dextrose (Dextrose 50%) 50 ml Q30M PRN IV Hypoglycemia 06/25/20 13:45 09/23/20 13:44 Heparin Sodium (Porcine) (Heparin 5000 units/ml) 5,000 units EVERY 12 HOURS SUBQ 06/25/20 21:00 08/09/20 20:59 06/28/20 08:25 Hydralazine HCl (Apresoline) 10 mg Q4H PRN IV Sbp greater than 168 06/25/20 17:45 09/23/20 17:44 Hydralazine HCl (Apresoline) 100 mg TID ORAL 06/25/20 18:00 09/23/20 17:59 06/28/20 12:39 Hydrochlorothiazide (Hydrodiuril) 25 mg DAILY ORAL 06/25/20 17:45 07/25/20 17:44 06/28/20 08:18 Insulin Aspart (NovoLOG) BEFORE MEALS AND HS SUBQ 06/25/20 16:30 09/23/20 16:29 06/27/20 20:26 Insulin Detemir (Levemir) 9 units EVERY 12 HOURS SUBQ 06/25/20 21:00 09/23/20 20:59 06/28/20 08:27 Labetalol HCl (Normodyne) 300 mg Q12HR ORAL 06/26/20 21:00 07/26/20 20:59 06/28/20 08:17 Allergies: Coded Allergies: DIPHENHYDRAMINE (Verified Allergy, Severe, HEADACHE,, 08/22/18) "FACE TURNS COLOR CADENA" PENICILLINS (Verified Allergy, Severe, SWELLING, 08/22/18) CODEINE (Verified Allergy, Intermediate, GI UPSET,HEADACHE, NAUSEA, 08/22/18) MITCHELL INHIBITORS (Verified Allergy, Unknown, 06/25/20) Tongue Swelling Subjective awake, alert, responsive, No chest pain or SOB, No head ache or dizziness. Objective Last Vital Signs Date Time Temp Pulse Resp B/P (MAP) Pulse Ox O2 Delivery O2 Flow Rate FiO2 06/28/20 12:39 147/63 06/28/20 12:00 97.0 65 17 97 06/28/20 09:00 Room Air Laboratory Tests Test 06/27/20 16:54 06/27/20 20:06 06/28/20 05:35 06/28/20 11:55 POC Whole Blood Glucose 102 MG/DL (74-106) 156 MG/DL (74-106) H 103 MG/DL (74-106) 124 MG/DL (74-106) H Intake and Output 06/27/20 06/28/20 19:00 07:00 Intake Total 840 ml 210 ml Balance 840 ml 210 ml Intake Oral 840 ml 210 ml Objective General: No acute distress, awake and alert HEENT: NCAT, sclera anicteric, PERRL, EOMI. Neck: Supple, no significant jugular venous distention, Lungs: Good inspiratory effort, no accessory muscle use, no Wheeze or Rales. Heart: Regular rate and rhythm, normal S1/S2, no murmur. Abdomen: soft, nontender, nondistended. Normoactive bowel sounds. / Rectal: Refused and deferred. Extremities: No Cyanosis , clubbing or edema. Neuro: A&O x 3, Able to move all extremities Skin: warm, no rashes or lesions Psych: Normal mood and affect Assessment/Plan Assessment/Plan Problem List: (1) Atherosclerotic cerebrovascular disease (2) Diabetes type 2, uncontrolled Assessment & Plan: Continue labetol, hydralazine and HCTZ per cardiology=Dr Funes (3) Renal cell carcinoma (4) Accelerated hypertension (5) Vertigo Assessment & Plan: MRI brain noted no acute finding. ECHO and carotid duplex Doppler neg DC home today. F/U with my office next week may return back to work next Wednesday.. Kole Gillis MD Jun 28, 2020 14:06
--- NOTE | 2020-06-28 14:13 | NUR ---
CASE MANAGEMENT:REVIEW 06/28/20 SI: POORLY CONTROLLED HYPERTENSION. DM H/O RENAL CELL CARCINOMA, S/P REMOVAL 97.0 65 17 147/63 97% ON RA GLUCOSE+124 IS: LABETALOL 300MG PO Q12 LEVEMIR SQ Q12 HEPARIN SQ Q12 HYDRALAZINE PO TID HCTZ PO QD ASA PO QD NORVASC PO QD : TELEMETRY STATUS DCP: FROM HOME PLAN: DISCHARGE HOME
--- NOTE | 2020-06-28 14:55 | NUR ---
NURSE NOTES: Discharge order received by Dr. Gillis. Patient alert and oriented x4, breathing even and unlabored, stable condition. Prescription paper given to patient, recep removed and given to SHRUTHI Siddiqi. IV on left forearm removed, gauze and tape placed, skin intact. Discharge instruction and education provided, discharge paper signed, patient belongings all accounted for and patient belongings list signed, prescription instructions given. Patient ambulated to private vehicle steadily and safely at 14:55.
--- NOTE | 2020-06-28 15:39 | NUR ---
INSURANCE CLINICALS/REVIEWS/DC INSTRUCTIONS FAXED TO [facility] [phone]
--- NOTE | 2020-07-02 11:31 | Discharge Summary ---
Discharge Summary Discharge Summary _ DATE OF ADMISSION: 06/25/2020 DATE OF DISCHARGE: 06/28/2020 DISCHARGED BY: Dr. Rosario REASON FOR ADMISSION: 73 years old female with past medical history of hypertension, CVA, presented with complaints of dizziness and headache. CT of the head revealed no acute intracranial hemorrhage, midline shift or mass- effect. Encephalomalacia in the right parieto-occipital lobe consistent with old infarct. Blood pressure was 181/61. Troponin negative , EKG revealed sinus rhythm, no acute ischemic changes. Patient subsequently admitted for further management CONSULTANTS: data processing auditor Dr. Funes [facility] COURSE: Patient admitted to telemetry floor. Carotid duplex revealed no hemodynamically significant extracranial carotid artery stenosis. Antegrade flow within the right vertebral artery. MRI of the brain revealed no evidence of acute intracranial bleeding, mass- effect or infarct. Old right temporal infarct , previously reported. Echocardiogram demonstrated preserved ejection fraction 70 to 75% with hyperdynamic systolic function. Antihypertensive regimen was optimized by data processing auditor. Blood pressure improved but still was not completely in range. Telemetry showed sinus rhythm. Patient will need close follow-up as outpatient for blood pressure control. Patient was discharged on labetalol , hydralazine and Norvasc. Antiplatelet therapy with aspirin continued. Blood sugar was managed with sliding scale of insulin. Diabetic diet and diabetic teaching provided. Patient clinically initially stabilized and was ready for discharge. FINAL DIAGNOSES: Accelerated hypertension Atherosclerotic cerebrovascular disease Diabetes mellitus uncontrolled Renal cell carcinoma, s/p resection History of CVA Vertigo DISCHARGE MEDICATIONS: See Medication Reconciliation list. DISCHARGE INSTRUCTIONS: Patient was discharged home. Follow-up as outpatient with Dr. Gillis next week I have been assigned to dictate discharge summary for this account. I was not involved in the patient's management. Regla Ramey NP Jul 02, 2020 11:31
--- NOTE | 2020-07-03 09:01 | NUR ---
INSURANCE DC SUMMARY FAXED TO [facility] [phone]
--- NOTE | 2020-07-03 19:39 | Coder Physician Query ---
Clarification is required for compliance, coding accuracy, and to reflect severity of illness for this patient Dear Dr. Gillis Date: 07/03/2020 Pony Edger/CDS Name: TRICE MONTOYA RE: Dizziness & headache REASON FOR ADMISSION: 73 years old female with past medical history of hypertension, CVA, presented with complaints of dizziness and headache. CT of the head revealed no acute intracranial hemorrhage, midline shift or mass- effect. Encephalomalacia in the right parieto-occipital lobe consistent with old infarct. Blood pressure was 181/61. Troponin negative , EKG revealed sinus rhythm, no acute ischemic change Antihypertensive regimen was optimized by cooking chef. Blood pressure improved but still was not completely in range. ER Physician states: Primary Impression: Hypertensive crisis FINAL DIAGNOSES on Discharge summary: Accelerated hypertension Please respond to the following question: Is there an underlying cause of the 'dizziness and headache?' If so please state below. PHYSICIAN RESPONSE: uncontrolled HTN Physician signature Date Please also document in your Progress Notes and/or Discharge Summary and indicate if the condition was present on admission. JEANETTE
== END 2020-06-28 14:45 | disposition home or self-care (01) | DRG 305 ==
LOC: EMR 08:14 → EDBEDREQ 08:57 → 2E 11:15 → EDBEDREQ 11:23
DX: I10 Essential (primary) hypertension (principal); Z88.6 Allergy status to analgesic agent; Z88.0 Allergy status to penicillin; Z88.8 Allergy status to other drugs, medicaments and biological substances; E11.65 Type 2 diabetes mellitus with hyperglycemia; Z85.528 Personal history of other malignant neoplasm of kidney; Z86.73 Personal history of transient ischemic attack (TIA), and cerebral infarction without residual deficits; Z96.641 Presence of right artificial hip joint; Z90.5 Acquired absence of kidney; Z79.82 Long term (current) use of aspirin; Z79.4 Long term (current) use of insulin; I25.10 Atherosclerotic heart disease of native coronary artery without angina pectoris
CPT/HCPCS: 36415; 70450; 70551; 80048; 80053; 82962; 83735; 84100; 84484; 85025; 85610; 85730; 93005; 93306; 93880; 96374; 96375; 96376; 99285; J1815; J2765; S5561